=== PATIENT | male | born 1950 | race Caucasian/White ===

== ENCOUNTER → 2016-11-21 | Outpatient (CLI) | payer MEDICARE, BC ==
[2016-11-21 11:19] LABS: EKG EKG PERFORMED
[2016-11-21 11:25] LABS: Basophils # (A) 0.1 k/uL (0-0.2); Basophils % (A) 1 %; CH 32.3; CHCM 32.9; Eosinophils # (A) 0.4 k/uL (0-0.7); Eosinophils % (A) 7 %; HDW 2.24; HGB 15.1 gm/dL (13.0-17.5); Luc # (Auto) 0.23; Luc % (Auto) 4; Lymphocytes # (A) 1.5 k/uL (1.0-4.8); Lymphocytes % (A) 27 %; MCH 32.2 pg (25.0-35.0); MCHC 32.8 g/dL (31.0-37.0); MCV 98.3 fL (80.0-100.0); Mean Platelet Volume 6.5; Monocytes # (A) 0.5 k/uL (0-1.0); Monocytes % (A) 9 %; Neutrophils % (A) 52 %; RBC 4.68 m/uL (4.30-5.90); RDW 12.2 % (11.5-15.5); WBC 5.8 k/uL (3.8-10.6)
[2016-11-21 11:34] LABS: Partial Thromboplastin Time 23.5 sec (22.0-30.0); Prothrombin Time 10.1 sec (9.0-12.0)
[2016-11-21 11:45] LABS: Anion Gap 9 mmol/L; Blood Urea Nitrogen 16 mg/dL (9-20); Carbon Dioxide 30 mmol/L (22-30); Chloride 103 mmol/L (98-107); Glucose 91 mg/dL (74-99); Non-African American GFR(MDRD) >60 (>60 ml/min/1.73 sqM); Potassium 4.6 mmol/L (3.5-5.1); Sodium 142 mmol/L (137-145)
== END | disposition home or self-care (01) ==
LOC: LABPAT 11:07
PROVIDERS: ATTEND Urology
DX: Z01.818 Encounter for other preprocedural examination (principal); N20.0 Calculus of kidney; E78.5 Hyperlipidemia, unspecified; Z79.01 Long term (current) use of anticoagulants; I10 Essential (primary) hypertension
CPT/HCPCS: 80048; 85025; 85610; 85730; 93005

== ENCOUNTER 2016-11-28 08:13 | Day surgery (SDC) | payer MEDICARE, BC ==
[2016-11-25 14:10] VITALS: BMI 31.2
[~2016-11-28 08:13] MED LIST: DEXAMETHASONE SOD PHOSPHATE 10 MG/ML 1 ML VIAL IV ONE; HYDROmorphone 1 MG/ML 1 ML SYRINGE IVP PRN; LACTATED RINGERS 1,000 ML IV ONE; LIDOCAINE 1% 20 ML VIAL (10MG/ML) FOR IV START INTRADERMA PRN; Pre Op ABX Message 1 EACH MISC MISCELLANE ONE
--- NOTE | 2016-11-28 08:13 | XR ---
Abdomen HISTORY: Kidney stones Single frontal view of the abdomen correlated to prior exam 02 November 2016 There is a calculus superimposed over the mid to lower pole of the right kidney measuring approximate ly 5 mm in greatest dimension. Possible calcification over the lower pole of the left kidney measurin g approximately 5 to 6 mm, there may be additional smaller calculi present at the lower pole of the l eft kidney. Lung bases are not included on the exam. No pneumoperitoneum or bowel obstruction is evid ent. There are vascular calcifications within the pelvis. Osteoarthritic changes are present within t he hips. Degenerative disc changes in the visualized spine. IMPRESSION: Nephrolithiasis may be bilateral.
[2016-11-28 09:05] VITALS: TEMP 97.8
[2016-11-28] MEDS ORDERED: PROPOFOL 10 MG/ML 20 ML VIAL IV ONE (09:26)
[2016-11-28] MEDS ORDERED: MIDAZOLAM 2 MG/2 ML VIAL ONE (09:26)
[2016-11-28] MEDS ORDERED: LIDOCAINE 1% INJ 10MG/ML (20 ML MDV) ONE (09:26)
[2016-11-28] MEDS ORDERED: fentaNYL (PF) 50 MCG/ML 2 ML AMP ONE (09:26)
--- NOTE | 2016-11-28 10:05 | P.OP ---
Date of Procedure: 11/28/16 Preoperative Diagnosis: Right Renal Calculus Postoperative Diagnosis: Same Procedure(s) Performed: Right Extracorporal Shockwave Lithotripsy (ESWL) Anesthesia: MAC Surgeon: Jaxon Cummings Estimated Blood Loss (ml): 0 IV fluids (ml): 600 Pathology: none sent Condition: stable Disposition: PACU Indications for Procedure: He is a 66-year-old male with no family history of prostate cancer. His prostate biopsy 04/18/2012 was negative. His PSA has been in a lower range since that time. He reports mild obstructive voiding symptoms, which are more bothersome to him. PRINCESS reveals the prostate to be moderately enlarged but smooth. He will be placed on Tamsulosin 0.4 mg daily. He reports right flank discomfort, and a KUB x-ray shows a 4-5 mm RLP renal calculus. He has elected to undergo ESWL. Operative Findings: Questionable fragmentation Description of Procedure: The patient was taken to the operating room and placed on the Dornier Compact Delta II lithotripter in the supine position. The [calculus was] seen on biplanar fluoroscopy. Once the patient was properly positioned and sedated, lithotripsy was performed. The energy level was gradually increased per protocol, to an energy level of [4]. [After 200 shocks were administered, a 2 minute pause was instituted per protocol. ]A total of [2500] shocks were given at a rate of [80] shocks per minute. Fluoroscopy was utilized at a minimum to ensure proper positioning and determine the treatment status. [The appearance of the calculus appeared to change, suggesting fragmentation had occurred. ] The patient tolerated the procedure well was taken to the recovery room in stable condition. Instructions were given to strain the urine, and the patient will follow-up within one week.
[2016-11-28 10:35] VITALS: BP 130/72; PULSE 73; RESP 18
== END 2016-11-28 11:46 | disposition home or self-care (01) ==
LOC: ORWHC2ENDO 08:13
PROVIDERS: ATTEND Urology
DX: N20.0 Calculus of kidney (principal); N40.1 Benign prostatic hyperplasia with lower urinary tract symptoms; N13.8 Other obstructive and reflux uropathy; N43.40 Spermatocele of epididymis, unspecified; N52.9 Male erectile dysfunction, unspecified; E78.5 Hyperlipidemia, unspecified; I10 Essential (primary) hypertension; Z79.82 Long term (current) use of aspirin; Z79.899 Other long term (current) drug therapy
CPT/HCPCS: 74000; 50590; J2250; J2001; J3010; J2704; 99153

== ENCOUNTER → 2016-12-02 | Outpatient (CLI) | payer MEDICARE, BC ==
--- NOTE | 2016-12-02 11:20 | XR ---
EXAMINATION TYPE: XR KUB DATE OF EXAM ORDERED: 12/02/2016 10:57 AM HISTORY: Status post right-sided lithotripsy. COMPARISON: Previous study dated 11/28/2016. FINDINGS: The patient's right-sided renal calculus is no longer identified. There is some fine calci fication within the right hemipelvis which was not present with certainty on the previous examination and may represent some Steinstrasse. The abdominal gas pattern is normal. There is no evidence of obstruction or free air. There is mild s pondylosis deformans within the spine. There are severe degenerative changes in both hips, greater on the right than the left. IMPRESSION: 1. THE PATIENT'S RIGHT RENAL CALCULUS APPEARS TO HAVE BEEN DISPERSED. THERE MAY BE SOME STEINSTRASSE IN THE DISTAL RIGHT URETER. 2. DEGENERATIVE CHANGES IN THE SPINE. 3. SEVERE DEGENERATIVE CHANGES WITHIN THE HIPS, GREATER ON THE RIGHT THAN THE LEFT. PLEASE CORRELATE FOR FEMOROACETABULAR IMPINGEMENT SYNDROME.
== END | disposition home or self-care (01) ==
LOC: RADXRMAIN 10:37
PROVIDERS: ATTEND Urology
DX: N20.0 Calculus of kidney (principal)
CPT/HCPCS: 74000

== ENCOUNTER → 2017-11-24 | Outpatient (CLI) | payer BC, MEDICARE ==
--- NOTE | 2017-11-24 12:29 | XR ---
EXAMINATION TYPE: XR chest 2V DATE OF EXAM: 11/24/2017 COMPARISON: NONE TECHNIQUE: PA and lateral views submitted. HISTORY: Chest pain FINDINGS: The lungs are clear and there is no pneumothorax, pleural effusion, or focal pneumonia. Arthropathy of the shoulders. Biapical pleural thickening. No overt failure. Hypertrophic and degenerative erwin e of the spine. Hyperinflation suggests COPD. IMPRESSION: 1. No acute process.
--- NOTE | 2017-11-24 12:31 | XR ---
EXAMINATION TYPE: XR cervical spine limited DATE OF EXAM: 11/24/2017 COMPARISON: NONE HISTORY: Neck pain TECHNIQUE: 3 views are submitted. FINDINGS: The odontoid is intact. There are no compression deformities. The prevertebral soft tissue structur es are within normal limits. Hypertrophic and degenerative changes are noted. Retrolisthesis of C4 o n C5 and C5 on C6 with degenerative changes. Multilevel facet arthropathy. Calcifications in the soft tissue of the neck are likely vascular. IMPRESSION: 1. Multilevel degenerative change and facet arthropathy with retrolisthesis of C4 on C5 and C5 on C6 of approximately 2 to 3 mm.
== END | disposition home or self-care (01) ==
LOC: RADXRMAIN 11:55
PROVIDERS: ATTEND Family Medicine
DX: M43.12 Spondylolisthesis, cervical region (principal); M47.22 Other spondylosis with radiculopathy, cervical region; M46.82 Other specified inflammatory spondylopathies, cervical region; R07.9 Chest pain, unspecified
CPT/HCPCS: 71046; 72040

== ENCOUNTER → 2018-11-27 | Outpatient (CLI) | payer MEDICARE, BC | END | disposition home or self-care (01) | LOC: LABWHC1 11:59 | PROVIDERS: ATTEND Urology | DX: R97.20 Elevated prostate specific antigen [PSA] (principal); Z53.9 Procedure and treatment not carried out, unspecified reason ==

== ENCOUNTER → 2020-01-01 | Outpatient (CLI) | payer MEDICARE, BC | END | disposition home or self-care (01) | LOC: LABWHC1 14:33 | PROVIDERS: ATTEND Urology | DX: R97.20 Elevated prostate specific antigen [PSA] (principal) | CPT/HCPCS: 36415; 84153 ==

== ENCOUNTER → 2020-03-26 | Outpatient (CLI) | payer MEDICARE, BC ==
--- NOTE | 2020-03-26 14:08 | XR ---
EXAMINATION TYPE: XR chest 2V DATE OF EXAM: 03/26/2020 COMPARISON: Prior chest x-ray 11/24/2017 HISTORY: Chest pain and dyspnea, shortness breath TECHNIQUE: Frontal and lateral views of the chest are obtained. FINDINGS: There is no focal air space opacity, pleural effusion, or pneumothorax seen. The cardiac silhouette size is within normal limits. The osseous structures are intact. There is thoracic spond ylosis. IMPRESSION: No acute cardiopulmonary process.
== END | disposition home or self-care (01) ==
LOC: RADXRMAIN 09:58
PROVIDERS: ATTEND Family Medicine
DX: R07.9 Chest pain, unspecified (principal); R06.00 Dyspnea, unspecified
CPT/HCPCS: 71046

== ENCOUNTER → 2020-11-25 | Outpatient (CLI) | payer MEDICARE, BC ==
[~2020-11-25] MED LIST changes: -DEXAMETHASONE SOD PHOSPHATE 10 MG/ML 1 ML VIAL IV ONE; -HYDROmorphone 1 MG/ML 1 ML SYRINGE IVP PRN; -LACTATED RINGERS 1,000 ML IV ONE; -LIDOCAINE 1% 20 ML VIAL (10MG/ML) FOR IV START INTRADERMA PRN; -Pre Op ABX Message 1 EACH MISC MISCELLANE ONE; +REGADENOSON 0.4 MG/5 ML SYRINGE IV ONE
--- NOTE | 2020-11-25 11:38 | NM ---
EXAMINATION TYPE: NM stress lexiscan cardiolite DATE OF EXAM: 11/25/2020 COMPARISON: NONE HISTORY: Abnormal EKG TECHNIQUE: After the intravenous administration of 10.7 mCi Tc 99m Sestamibi - Cardiolite resting SP ECT images acquired 53 minutes post injection. The patient received 0.4mg Lexiscan, 24.5 mCi Tc 99m Sestamibi - Stress images obtained [address] injection FINDINGS: Review of stress and rest SPECT images demonstrates reduced uptake on stress images within the inferi or wall of each may be artifactual. Gated analysis shows normal wall motion with an estimated left v entricular ejection fraction of 67 %. IMPRESSION: 1. Reduced uptake at stress images within the inferior wall is felt to be more likely artifactual cor relate with EKG. 2. Ejection fraction 67%
--- NOTE | 2020-11-26 12:03 | EST ---
EXERCISE STRESS AGE: 70 SEX: Male HT: 73" WT: 240 PROTOCOL: Lexiscan Cardiolite STAGE: DURATION OF EXERCISE: HEART RATE REST: 75 BLOOD PRESSURE REST: 144/68 MAXIMUM HEART RATE ACHIEVED: 88 MAXIMUM BLOOD PRESSURE: 144/86 85% MPHR: 127 100% MPHR: 149 METS: INDICATIONS: Chest pain. CLINICAL INFORMATION: STRESS DATA: Heart rate 75 pressure is 144/68 mmHg. Baseline EKG showed sinus mechanism. 0.4 mg of Lexiscan given over 15 seconds per protocol. Max heart rate was 88 beats per minute. Maximum pressure was 144/86 mmHg. Clinically, the patient did not have any symptoms and the EKG did not show any significant ST or T-wave abnormalities concerning for ischemia. CONCLUSION: 1. Nondiagnostic electrocardiogram stress testing in response to Lexiscan. 2. Please follow up on the Cardiolite portion on separate report from Radiology Department. MMODL / IJN: [id number] /
== END | disposition home or self-care (01) ==
LOC: RADNMMAIN 08:15
PROVIDERS: ATTEND Family Medicine
DX: R94.31 Abnormal electrocardiogram [ECG] [EKG] (principal); R94.8 Abnormal results of function studies of other organs and systems
CPT/HCPCS: 93017; 78452; A9500; J2785

== ENCOUNTER → 2020-12-07 | Day surgery (SDC) | payer MEDICARE, BC ==
[2020-12-03 11:22] VITALS: BMI 32.5
[~2020-12-07] MED LIST changes: +ALPRAZolam 0.25 MG TAB PO PRN; +ALPRAZolam 0.5 MG TAB PO PRN; +ASPIRIN 325 MG TAB PO ONE; +ATORVASTATIN 80 MG TAB PO ONE; +HEPARIN SODIUM 1,000 UN/ML (10ML VL) ONE; +IOPAMIDOL-370 125ML BTL INJ ONE; +LIDOCAINE 1% INJ 10MG/ML (20 ML MDV) ONE; +LIDOCAINE 1% INJ 10MG/ML (20 ML MDV) SQ ONE; +MIDAZOLAM 2 MG/2 ML VIAL IV ONE; +NITROGLYCERIN SL TABS 0.4 MG TAB SUBLINGUAL PRN; -REGADENOSON 0.4 MG/5 ML SYRINGE IV ONE; +RX INFO: IV CONTRAST WAS GIVEN 1 EACH MISC MISCELLANE PRN; +SODIUM CHLORIDE 0.9% 1,000 ML IV SCH; +SODIUM CHLORIDE 0.9% 1,000 ML in EMPTY BAG 1 BAG IV ONE; +VERAPAMIL 2.5 MG/ML 2 ML AMP ONE; +fentaNYL (PF) 50 MCG/ML 2 ML AMP IV ONE; +fentaNYL (PF) 50 MCG/ML 2 ML AMP ONE
[2020-12-07 08:48] VITALS: RESP 18; TEMP 98.2
[2020-12-07 08:56] LABS: Basophils # (A) 0.1 k/uL (0-0.2); Basophils % (A) 1 %; Eosinophils # (A) 0.4 k/uL (0-0.7); Eosinophils % (A) 5 %; HCT 44.5 % (39.0-53.0); HGB 15.2 gm/dL (13.0-17.5); Lymphocytes # (A) 2.4 k/uL (1.0-4.8); Lymphocytes % (A) 28 %; MCH 32.7 pg (25.0-35.0); MCHC 34.2 g/dL (31.0-37.0); MCV 95.7 fL (80.0-100.0); Mean Platelet Volume 6.9; Monocytes # (A) 0.7 k/uL (0-1.0); Monocytes % (A) 9 %; Neutrophils # (A) 4.9 k/uL (1.3-7.7); Neutrophils % (A) 56 %; Platelet Count 275 k/uL (150-450); RBC 4.66 m/uL (4.30-5.90); RDW 11.7 % (11.5-15.5); WBC 8.7 k/uL (3.8-10.6)
--- NOTE | 2020-12-07 10:22 | CC ---
CARDIAC CATHETERIZATION REPORT DATE OF SERVICE: 12/07/2020 PERFORMING PHYSICIAN: Marcial Tan MD. PROCEDURE PERFORMED: 1. Selective right and left coronary angiogram. 2. Left heart catheterization. INDICATION: This is a very pleasant 70-year-old gentleman with hypertension and dyslipidemia who was seen in the office recently with chest discomfort and underwent myocardial perfusion imaging stress test and that came into be abnormal. Because of that, a heart catheterization was advised. APPROACH: Right radial artery. COMPLICATION: None. LEVEL OF SEDATION: Moderate with sedation length of 18 minute. PROCEDURE DESCRIPTION: After obtaining informed consent, the patient was brought to cardiac lab support service tech. The right radial artery was cannulated using micropuncture technique and a micropuncture wire passed easily. Then I placed a 5-Chinese sheath in the right radial artery. 2 mg of verapamil IA and 10,000 units of heparin given. After that I did selective right and left coronary angiogram with JR4 and JL3.5 catheters. Left heart catheterization was performed using the JR4 catheter which crossed the aortic valve then I did pullback across the valve. The procedure was completed without any complication. SELECTIVE CORONARY ANGIOGRAM: 1. The RCA is a moderate caliber vessel. It is a codominant vessel. The RCA has an ostial lesion appeared to be in the range of 70%. There was definitely dampening in the waveform upon engaging the right coronary artery. 2. The left main. The left main is diseased in the mid shaft with a lesion that appeared to be in the range of 50%. The left main bifurcates into LCX and LAD. 3. The LCX is a large caliber vessel. It is a codominant vessel. The proximal left circumflex has mild disease only. It gives rise into a large OM branch which has a proximal and mid lesion appeared to be in the range of 80%. The circumflex appeared to have mild disease only and the circumflex distally appeared to be angiographically normal. 4. The LAD: The ostial/proximal LAD has a lesion appeared to be in the range of 80% to 90%. The LAD in the mid and distal portion appeared to have mild disease only. HEMODYNAMICS: The LVEDP was about 12 mmHg without significant gradient across aortic valve. CONCLUSION: 1. Severe triple-vessel coronary artery disease. 2. Severe left main coronary artery disease involving the mid shaft. 3. Normal LVEDP. POSTPROCEDURE MANAGEMENT: Given the above anatomy, I advised the patient to undergo coronary artery bypass grafting and to be evaluated by a surgeon. MMBANDAR / IJN: [id number] /
[2020-12-07 11:40] LABS: Prothrombin Time 10.9 sec (9.0-12.0)
[2020-12-07 11:43] LABS: ALT 32 U/L (4-49); AST 27 U/L (17-59); African American GFR (CKD) >90 (>60 ml/min/1.73 sqM); Alkaline Phosphatase 57 U/L (38-126); Anion Gap 12 mmol/L; Blood Urea Nitrogen 22 mg/dL (9-20); Carbon Dioxide 23 mmol/L (22-30); Chloride 104 mmol/L (98-107); Glucose 145 mg/dL (74-99); Non-African American GFR(CKD) 84 (>60 ml/min/1.73 sqM); Sodium 139 mmol/L (137-145); Total Bilirubin 0.4 mg/dL (0.2-1.3)
[2020-12-07 11:49] LABS: Potassium 3.9 mmol/L (3.5-5.1)
[2020-12-07 11:50] LABS: Partial Thromboplastin Time 110.1 sec (22.0-30.0)
--- NOTE | 2020-12-07 11:59 | P.GSCN ---
History of Present Illness Consult date: 12/07/20 Reason for Consult: Triple vessel coronary artery disease with left main disease Requesting physician: Marcial Tan History of present illness: This is a 70-year-old gentleman who follows on an outpatient basis with Dr. Conrad Rivera for primary care. He has a previous medical history of hypertension, hyperlipidemia, and family history of premature coronary artery disease with father from myocardial infarction at 52 years old. He began experiencing chest pressure associated with shortness of breath with activity but not at rest. He experienced no other aggravating or alleviating symptoms. He called his primary care physician for advice, he was recommended to see Dr. Tan, and was initiated on aspirin and statin therapy. He did have an EKG with new left bundle branch block as compared to previous EKG from 4 years prior. He underwent stress testing which reported reduced uptake within the inferior wall, possibly artifact versus ischemia. Due to his symptoms, EKG changes, and stress test Dr. Tan recommended elective heart catheterization which was completed today and which demonstrated left main stenosis 50%, proximal LAD stenosis 80- 90%, large OM branch of the circumflex with stenosis 80%, and ostial RCA stenosis 70%. Due to these findings consultation was placed to Dr. Hu from cardiothoracic surgery for surgical revascularization recommendations. Review of Systems - Cardiovascular Reports as per HPI, Reports chest pain, Reports decreased exercise tolerance, Reports dyspnea on exertion Past Medical History Past Medical History: Coronary Artery Disease (CAD), Chest Pain / Angina, H yperlipidemia, Hypertension, Prostate Disorder Additional Past Medical History / Comment(s): Enlarged prostate; kidney stones History of Any Multi-Drug Resistant Organisms: None Reported Additional Past Surgical History / Comment(s): COLONOSCOPY; right extracorporeal shockwave lithotripsy Past Anesthesia/Blood Transfusion Reactions: No Reported Reaction Past Psychological History: No Psychological Hx Reported Smoking Status: Never smoker Past Alcohol Use History: Rare Past Drug Use History: None Reported - Past Family History Mother Family Medical History: Congestive Heart Failure (CHF), Coronary Artery Disease (CAD), Hypertension Father Family Medical History: Cancer, Coronary Artery Disease (CAD), Myocardial Infarction (CA) Additional Family Medical History / Comment(s): at 52 years old for myocardial infarction; Kidney cancer found on autopsy Sister(s) Family Medical History: Cancer Additional Family Medical History / Comment(s): Breast cancer Medications and Allergies Home Medications Medication Instructions Recorded Confirmed Type Aspirin [Adult Low Dose Aspirin EC] 81 mg PO DAILY 11/25/16 12/07/20 History Fluticasone Nasal [place] [Flonase 1 spray EA NOSTRIL DAILY PRN 11/25/16 12/07/20 History Nasal [place]] Losartan [Cozaar] 25 mg PO DAILY 11/25/16 12/07/20 History Multivitamins, Thera [Multivitamin] 1 tab PO DAILY 11/25/16 12/07/20 History Tamsulosin [Flomax] 0.4 mg PO DAILY 11/25/16 12/07/20 History Atorvastatin [Lipitor] 80 mg PO HS 12/03/20 12/07/20 History Carvedilol [Coreg] 6.25 mg PO BID 12/03/20 12/07/20 History Allergies Allergy/AdvReac Type Severity Reaction Status Date / Time No Known Allergies Allergy Verified 12/07/20 08:32 Surgical - Exam Vital Signs Temp Pulse Resp BP Pulse Ox 98.2 F 78 18 145/70 98 12/07/20 08:33 12/07/20 08:33 12/07/20 08:33 12/07/20 08:33 12/07/20 08:33 - General well developed, well nourished, no distress, no pain - Eyes normal ocular movement - ENT no hearing loss - Neck no masses, no bruits, trachea midline - Respiratory Lungs sounds clear bilaterally. Respirations even, nonlabored. Currently on room air with oxygen saturation 98%. No chest wall deformities. No clubbing or cyanosis present. - Cardiovascular S1, S2 present. Regular rate and rhythm, sinus rhythm on telemetry. Palpable peripheral pulses bilaterally. No edema present. No calf pain or tenderness noted. Right radial heart catheterization site without redness or drainage, T band in place - Abdomen Abdomen: soft, non tender, bowel sounds - Genitourinary Deferred - Rectum Deferred - Integumentary no rash, no growths - Neurologic normal coordination, normal sensation - Musculoskeletal normal posture - Psychiatric oriented to time, oriented to person, oriented to place, speech is normal, memory intact Results - Labs 12/07/20 08:40 12/07/20 10:45 Diabetes panel 12/07/20 Range/Units 08:40 Potassium 4.1 (3.5-5.1) mmol/L Pituitary panel 12/07/20 Range/Units 08:40 Potassium 4.1 (3.5-5.1) mmol/L Adrenal panel 12/07/20 Range/Units 08:40 Potassium 4.1 (3.5-5.1) mmol/L - Imaging Chest x-ray: report reviewed, image reviewed EKG: image reviewed Additional studies: Heart catheterization films reviewed Assessment and Plan Assessment: 1. Coronary artery disease with left main disease 2. Hypertension 3. Hyperlipidemia 4. Enlarged prostate 5. Never smoker 6. Family history of premature coronary artery disease Plan: The patient was seen and examined at the bedside. His chart/diagnostics were re viewed. Heart catheterization films will be reviewed with Dr. Hu. The usual perioperative course of coronary artery bypass surgery was discussed in detail with the patient and his , risks and benefits were reviewed, all questions were answered. The patient does consent to surgery. Preoperative testing was initiated. Will calculate STS risk score once all testing has been completed and discuss with the patient. Continue aspirin, statin, beta marcus therapy. More recommendations to follow regarding timing of surgery. Thank you Dr. Tan for this consult. Time with Patient: Greater than 30
[2020-12-07 13:01] LABS: Cholesterol 95 mg/dL (<200); HDL Cholesterol 40 mg/dL (40-60); LDL Cholesterol,Calculated 47 mg/dL (0-99); Triglycerides 39 mg/dL (<150)
--- NOTE | 2020-12-07 13:08 | US ---
EXAMINATION TYPE: US carotid duplex BILAT DATE OF EXAM: 12/07/2020 COMPARISON: NONE CLINICAL HISTORY: Pre-Op Cardiac Surgery. CAD EXAM MEASUREMENTS: RIGHT: Peak Systolic Velocity (PSV) cm/sec ----- Right CCA: 54.9 ----- Right ICA: 301.6 ----- Right ECA: 113.9 ICA/CCA ratio: 5.5 RIGHT: End Diastole cm/sec ----- Right CCA: 8.6 ----- Right ICA: 59.2 ----- Right ECA: 0.0 LEFT: Peak Systolic Velocity (PSV) cm/sec ----- Left CCA: 84.0 ----- Left ICA: 215.5 ----- Left ECA: 92.6 ICA/CCA ratio: 2.6 LEFT: End Diastole cm/sec ----- Left CCA: 11.3 ----- Left ICA: 31.5 ----- Left ECA: 12.4 VERTEBRALS (direction of flow): Right Vertebral: Antegrade Left Vertebral: Antegrade Rhythm: Normal Moderate to severe Right ICA stenosis is noted proximally with abnormally elevated PSV, elevated ICA/ CCA ratio, and mixed plaque present. Moderate left ICA stenosis is noted proximally. Grayscale, colo r Doppler, spectral Doppler imaging performed the carotid arteries. Waveform analysis shows spectral broadening, loss of systolic window within the proximal internal carotid artery on the right greater than left. IMPRESSION: Hemodynamic significant stenosis corresponding to approximately 70% diameter reduction or greater in the proximal right internal carotid artery, 50-69% diameter reduction of the proximal i nternal carotid artery in the left, consider CTA, MRA Criteria for Assigning % of Stenosis / Diameter reduction (Estimation based on the indirect measurements of the internal carotid artery velocities (ICA PSV). 1. Normal (no stenosis)=ICA PSV < 125 cm/s: ratio < 2.0: ICA EDV<40 cm/s. 2. Less than 50% stenosis=ICA PSV < 125 cm/s: ratio < 2.0: ICA EDV<40 cm/s. 3. 50 to 69% stenosis=ICA PSV of 125 to 230 cm/s: ration 2.0 ? 4.0: ICA EDV 40-100 cm/s. 4. Greater than 70% stenosis to near occlusion= ICA PSV > 230 cm/s: ratio > 4.0: ICA EDV > 100 cm/s. 5. Near occlusion= ICA PSV velocities may be low or undetectable: variable ratio and ICA EDV. 6. Total occlusion=unable to detect flow.
[2020-12-07 14:39] VITALS: BP 143/64; PULSE 66
[2020-12-07 14:46] LABS: Appearance,Urine Clear (Clear); Bilirubin,Urine Negative (Negative); Blood,Urine Negative (Negative); Color,Urine Yellow; Glucose,Urine (UA) Negative (Negative); Ketones,Urine Negative (Negative); Leukocyte Esterase,Urine Negative (Negative); Nitrite,Urine Negative (Negative); Protein,Urine Negative (Negative); Specific Gravity,Urine 1.032 (1.001-1.035); Urobilinogen,Urine <2.0 mg/dL (<2.0)
--- NOTE | 2020-12-07 16:19 | XR ---
EXAMINATION TYPE: XR chest 2V DATE OF EXAM: 12/07/2020 COMPARISON: Chest x-ray dated 03/26/2020 HISTORY: Preop cardiac surgery TECHNIQUE: Frontal and lateral views of the chest are obtained. FINDINGS: There is no focal air space opacity, pleural effusion, or pneumothorax seen. The cardiac silhouette size is within normal limits. There are overlying leads. The osseous structures are intac t. IMPRESSION: No acute cardiopulmonary process.
[2020-12-07 18:00] LABS: Hemoglobin A1C 5.7 % (4.0-6.0)
[2020-12-07 19:15] LABS: Hepatitis A Antibody IgM Non-Reactive (Non-Reactive); Hepatitis B Core IgM Non-Reactive (Non-Reactive); Hepatitis B Surface Antigen Non-Reactive (Non-Reactive); Hepatitis C IgG Antibody Non-Reactive (Non-Reactive)
--- NOTE | 2020-12-08 15:12 | P.PN ---
Progress Note - Text Progress Note Date: 12/07/20 A 5 m walk test was completed with the patient. Time 1: 2.33 seconds, time 2: 2.73 seconds, time 3: 2.62 seconds.
--- NOTE | 2020-12-09 11:34 | P.ARTDOP ---
Arterial Doppler LOWER EXTREMITY ARTERIAL DOPPLER: DATE OF SERVICE: 12/07/2020 Reason for study: Preop CABG. Doppler waveforms: Multiphasic bilaterally throughout. Normal toe waveforms. Pulse volume recording: []. Pressure gradients: None. Ankle-brachial indices: Greater than 1 bilaterally. Toe brachial indices: 0.99 on the right, 0.74 on the left Impression: Normal study.
--- NOTE | 2020-12-09 11:38 | P.VSCSTY ---
Greater Saphenous Vein Mapping This is bilateral lower extremity greater saphenous vein mapping. Date of service: 12/07/2020 Vein quality and ultrasound appearance: We see no intraluminal thrombus. There is some intimal thickening in the mid right thigh. There is an nodes seen in the right groin.. Vein size groin right : 7.6 x 7.6 groin left: 4.7 x 3.2 High thigh right: 3.7 x 3.3 high thigh left: 4.6 x 4.1 Mid thigh right: 2.6 x 2.6 mid thigh left: 4.2 x 3.0 Above-knee right: 2.8 x 3.0 above- knee left: 4.1 x 3.9 Below knee right: 3.7 x 2.2 below-knee left: 2.0 x 2.4 Mid calf right: 2.6 x 2.3 mid calf left: To 0.7 x 2.8 Ankle right: 3.3 x 3.4 ankle left: 2.3 x 2.6 Impression: Usable bilateral greater saphenous vein. Wall thickening in the right groin probably related to some form of chronic inflammatory process, but I cannot rule out postphlebitic area. Clinical correlation recommended..
== END ==
LOC: CATHCVL 08:22
PROVIDERS: ATTEND Internal Medicine Interventional Cardiology
DX: I25.110 Atherosclerotic heart disease of native coronary artery with unstable angina pectoris (principal); I65.23 Occlusion and stenosis of bilateral carotid arteries; I10 Essential (primary) hypertension; E78.00 Pure hypercholesterolemia, unspecified; E78.5 Hyperlipidemia, unspecified; N40.0 Benign prostatic hyperplasia without lower urinary tract symptoms; Z87.442 Personal history of urinary calculi; Z79.02 Long term (current) use of antithrombotics/antiplatelets; Z79.82 Long term (current) use of aspirin; Z79.899 Other long term (current) drug therapy; Z82.49 Family history of ischemic heart disease and other diseases of the circulatory system; Z80.3 Family history of malignant neoplasm of breast
CPT/HCPCS: 94150; 93458; 80061; 80053; 80074; 84443; 83735; 84132; 85025; 85610; 85730; 81003; 87070; 83036; 71046; 93970; 93922; 93880; C8929; C1769; C1894; U0003; U0005; J2250; J2001; J3010; J1644; Q9950; Q9967; 86850; 86900; 86901; 93306

== ENCOUNTER → 2020-12-09 | Outpatient (CLI) | payer MEDICARE, BC ==
[2020-12-09 12:55] LABS: African American GFR (CKD) >90 (>60 ml/min/1.73 sqM); Blood Urea Nitrogen 21 mg/dL (9-20); Non-African American GFR(CKD) 85 (>60 ml/min/1.73 sqM)
--- NOTE | 2020-12-09 13:58 | CT ---
EXAMINATION TYPE: CT angio head neck DATE OF EXAM: 12/09/2020 HISTORY: Abnormal US per patient. Scheduled for CABG COMPARISON: Carotid ultrasound [address] DLP: 483.7 mGycm. Automated Exposure Control for Dose Reduction was Utilized. TECHNIQUE: CTA scan of the head and neck are performed with IV Contrast, patient injected with 65 mL of Isovue 370, axial images are obtained, coronal and sagittal reformatted images are reviewed. Thre e-D reconstructed images are created on an independent workstation and reviewed. FINDINGS: Carotid/Vascular Structures: Normal 3 vessel origin from the aortic arch. Mild to moderate peripheral noncalcified plaque in the descending aorta just past the great vessels. Right common carotid artery shows normal origin from right brachiocephalic artery. No significant plaque or stenosis in the comm on carotid arteries bilaterally. Moderate to severe mixed predominately noncalcified plaque in the ca rotid bulbs extends into proximal internal carotid arteries bilaterally causing significant stenosis. Luminal diameter narrowed to 2.2 mm proximal right internal carotid artery image 676 of the raw data . There is reconstitution to 6.0 mm distal to this.Lumen diameter narrowed to 1.7 mm on the left with more elongated flow anteriorly. There is poststenotic dilatation up to 7.3 mm distal to this There a re patent external carotid arteries bilaterally without significant stenosis. Remainder of the international account manager al carotid arteries shows no significant stenosis. Codominant vertebrobasilar system. Vertebral arteries are patent to the basilar junction. No signific ant focal stenosis or aneurysmal change of the posterior circulation. Hypoplastic bilateral posterior communicating arteries are seen. Hypoplastic anterior communicating artery. No significant focal huyen nosis or aneurysmal change in the anterior circulation. Other: Mild to moderate spurring and disc space narrowing C4-C5 and C5-C6 levels. Levoconvex scoliosi s centered in the upper thoracic spine. IMPRESSION: Confirmation of hemodynamically significant stenosis in both internal carotid arteries me asuring 65-70 % on the right and near 75% on the left.
== END | disposition home or self-care (01) ==
LOC: RADCTMAIN 11:57
PROVIDERS: ATTEND Surgery
DX: I65.23 Occlusion and stenosis of bilateral carotid arteries (principal)
CPT/HCPCS: 82565; 84520; 70496; 70498; 36415; Q9967

== ENCOUNTER 2020-12-10 05:52 | Inpatient (IN) | payer MEDICARE, BC ==
[~2020-12-10 05:52] MED LIST changes: +ALBUMIN HUMAN 25% 50 ML IV ONE; +ALBUMIN HUMAN 5% 500 ML IVPB ONE; -ALPRAZolam 0.25 MG TAB PO PRN; -ALPRAZolam 0.5 MG TAB PO PRN; +ATORVASTATIN 10 MG TAB PO ONE; -ATORVASTATIN 80 MG TAB PO ONE; +CALCIUM CHLORIDE 100 MG/ML 10 ML SYRINGE IV ONE; +CARDIOPLEGIC SOLN (K+ 16 MEQ/L 1,000 ML with SODIUM BICARB (1 MEQ/ML) 20 ML, LIDOCAINE ... PERFUSION ONE; +CHLORHEXIDINE GLUCONATE 15 ML CUP MUCOUS MEM ONE; +CLEVIDIPINE BUTYRATE 25 MG in EMPTY BAG 1 BAG IV ONE; +DILTIAZEM 125 MG in SODIUM CHLORIDE 0.9% 100 ML IV ONE; +HEPARIN SODIUM 1,000 UN/ML (10ML VL) IV ONE; -HEPARIN SODIUM 1,000 UN/ML (10ML VL) ONE; +HEPARIN SODIUM,PORCINE 5,000 UNIT in SODIUM CHLORIDE 0.9% 500 ML 500 ML IV ONE; +INSULIN REGULAR 100 UNIT in SODIUM CHLORIDE 0.9% 100 ML IV ONE; -IOPAMIDOL-370 125ML BTL INJ ONE; +LACTATED RINGERS 1,000 ML IV ONE; -LIDOCAINE 1% INJ 10MG/ML (20 ML MDV) ONE; -LIDOCAINE 1% INJ 10MG/ML (20 ML MDV) SQ ONE; +MAGNESIUM SULFATE MG 500 MG/ML IV ONE; +MANNITOL 25% 12.5 GM/50 ML VIAL IV ONE; +METOPROLOL TARTRATE 12.5 MG TAB PO ONE; -MIDAZOLAM 2 MG/2 ML VIAL IV ONE; +NITROGLYCERIN SL TABS 0.4 MG TAB SUBLINGUAL ONE; -NITROGLYCERIN SL TABS 0.4 MG TAB SUBLINGUAL PRN; +NITROGLYCERIN-D5W PMX 25 MG/250 ML BTL IV ONE; +NITROGLYCERIN-D5W PMX 50 MG in DEXTROSE/WATER 1 250ML.BAG IV ONE; +NOREPINEPHRINE 4 MG in SODIUM CHLORIDE 0.9% 250 ML IV ONE; +PAPAVERINE 360 MG in SODIUM CHLORIDE 0.9% 90 ML IV ONE; +PHENYLEPHRINE 10 MG/ML VIAL IV ONE; +PHENYLEPHRINE 40 MG in SODIUM CHLORIDE 0.9% 250 ML IV ONE; +PROTAMINE SULFATE 10 MG/ML 25 ML VIAL IV ONE; +PROTAMINE SULFATE 250 MG in EMPTY BAG 1 BAG IV ONE; -RX INFO: IV CONTRAST WAS GIVEN 1 EACH MISC MISCELLANE PRN; +SODIUM BICARB 8.4% 50 ML SYR (1 MEQ/ML) IV ONE; +SODIUM CHLORIDE 0.9% 1,000 ML IV ONE; -SODIUM CHLORIDE 0.9% 1,000 ML IV SCH; -SODIUM CHLORIDE 0.9% 1,000 ML in EMPTY BAG 1 BAG IV ONE; +TRANEXAMIC ACID 2,000 MG in SODIUM CHLORIDE 0.9% 80 ML IV ONE; -VERAPAMIL 2.5 MG/ML 2 ML AMP ONE; +ceFAZolin 1,000 MG in SODIUM CHLORIDE 0.9% IRRIGATIO 1,000 ML IRRIGATION ONE; -fentaNYL (PF) 50 MCG/ML 2 ML AMP IV ONE; -fentaNYL (PF) 50 MCG/ML 2 ML AMP ONE; +propofoL 1,000 MG/100 ML VIAL IV ONE
[2020-12-10] MEDS ORDERED: ELECTROLYTE-R (PH 7.4) 1,000 ML IV.SOLN IV ONE (07:27)
[2020-12-10] MEDS ORDERED: PROPOFOL 10 MG/ML 20 ML VIAL IV ONE (07:27)
[2020-12-10] MEDS ORDERED: ceFAZolin 1,000 MG VIAL ONE (07:27)
[2020-12-10] MEDS ORDERED: SODIUM CHLORIDE 0.9% IRRIG 1,000 ML BTL IRRIGATION ONE (07:27)
[2020-12-10] MEDS ORDERED: INSULIN REGULAR 100 UNIT/ML VIAL ONE (07:27)
[2020-12-10] MEDS ORDERED: LIDOCAINE 2% SYG (PF) 100 MG/5 ML ONE (07:27)
[2020-12-10] MEDS ORDERED: HEPARIN SODIUM,PORCINE 10,000 UNIT/ML 1 ML VIAL ONE (07:27)
[2020-12-10] MEDS ORDERED: TRANEXAMIC ACID 1,000 MG/10 ML VIAL ONE (07:27)
[2020-12-10] MEDS ORDERED: NITROGLYCERIN-D5W PMX 50 MG/250 ML BOTTLE IV ONE (07:27)
[2020-12-10] MEDS ORDERED: MAGNESIUM SULFATE 4 MEQ/ML 10ML VIAL ONE (07:27)
[2020-12-10] MEDS ORDERED: SODIUM CHLORIDE 0.9% 250 ML BAG ONE (07:27)
[2020-12-10] MEDS ORDERED: VECURONIUM 10 MG VIAL IV ONE (07:27)
[2020-12-10] MEDS ORDERED: PROTAMINE SULFATE 10 MG/ML 25 ML VIAL IV ONE (07:27)
[2020-12-10] MEDS ORDERED: MIDAZOLAM 2 MG/2 ML VIAL ONE (07:27)
[2020-12-10] MEDS ORDERED: SODIUM CHLORIDE 0.9% 100 ML BAG ONE (07:27)
[2020-12-10] MEDS ORDERED: fentaNYL (PF) 50 MCG/ML 2 ML AMP ONE (07:27)
[2020-12-10] MEDS ORDERED: fentaNYL (PF) 50 MCG/ML 50 ML VIAL ONE (07:27)
[2020-12-10] MEDS ORDERED: DEXTROSE 5% IN WATER 1,000 ML with POTASSIUM CHLORIDE 25 MEQ, SODIUM CHLORIDE 4MEQ/ML V... IRRIGATION ONE ×6 (08:00)
[2020-12-10] MEDS ORDERED: DEXTROSE 5% IN WATER 1,000 ML with POTASSIUM CHLORIDE 110 MEQ, MAGNESIUM SULFATE 16 MEQ... IV ONE ×5 (08:00)
[2020-12-10 08:33] LABS: ABG Glucose Whole Blood 93 mg/dL (75-99); ABG HCO3 25 mmol/L (21-25); ABG Hematocrit 40 % (34.0-46.0); ABG Ionized Calcium 4.5 mg/dL (4.5-5.3); ABG Lactic Acid Whole Blood 1.1 mmol/L (0.5-1.6); ABG PCO2 40 mmHg (35-45); ABG PH 7.41 (7.35-7.45); ABG Sodium Whole Blood 141 mmol/L (135-146); ABG TCO2 26 mmol/L (19-24)
[2020-12-10 08:34] LABS: ABG Base Excess -0.1 mmol/L; ABG Glucose Whole Blood 92 mg/dL (75-99); ABG HCO3 25 mmol/L (21-25); ABG Hematocrit 40 % (34.0-46.0); ABG Ionized Calcium 4.5 mg/dL (4.5-5.3); ABG Lactic Acid Whole Blood 1.1 mmol/L (0.5-1.6); ABG PCO2 39 mmHg (35-45); ABG Sodium Whole Blood 141 mmol/L (135-146); ABG TCO2 26 mmol/L (19-24)
[2020-12-10 08:35] LABS: ABG PO2 >420 mmHg (83-108)
[2020-12-10 08:35] LABS: ABG PO2 >420 mmHg (83-108)
[2020-12-10 09:51] LABS: ABG Base Excess -1.8 mmol/L; ABG Glucose Whole Blood 112 mg/dL (75-99); ABG HCO3 25 mmol/L (21-25); ABG Hematocrit 39 % (34.0-46.0); ABG Ionized Calcium 4.5 mg/dL (4.5-5.3); ABG Lactic Acid Whole Blood 0.7 mmol/L (0.5-1.6); ABG Oxygen Saturation 99.7 % (94-97); ABG PCO2 51 mmHg (35-45); ABG PO2 243 mmHg (83-108); ABG Potassium Whole Blood 4.3 mmol/L (3.4-4.5); ABG Sodium Whole Blood 141 mmol/L (135-146); ABG TCO2 27 mmol/L (19-24)
[2020-12-10 10:58] LABS: ABG Base Excess -1.2 mmol/L; ABG Glucose Whole Blood 112 mg/dL (75-99); ABG HCO3 24 mmol/L (21-25); ABG Hematocrit 36 % (34.0-46.0); ABG Ionized Calcium 4.4 mg/dL (4.5-5.3); ABG Lactic Acid Whole Blood 0.8 mmol/L (0.5-1.6); ABG PCO2 41 mmHg (35-45); ABG PH 7.38 (7.35-7.45); ABG PO2 304 mmHg (83-108); ABG Potassium Whole Blood 4.3 mmol/L (3.4-4.5); ABG Sodium Whole Blood 140 mmol/L (135-146); ABG TCO2 25 mmol/L (19-24)
[2020-12-10 11:38] LABS: ABG Base Excess -1.6 mmol/L; ABG Glucose Whole Blood 196 mg/dL (75-99); ABG HCO3 23 mmol/L (21-25); ABG Hematocrit 27 % (34.0-46.0); ABG Ionized Calcium 3.9 mg/dL (4.5-5.3); ABG PCO2 40 mmHg (35-45); ABG PH 7.38 (7.35-7.45); ABG PO2 411 mmHg (83-108); ABG Potassium Whole Blood 5.6 mmol/L (3.4-4.5); ABG Sodium Whole Blood 134 mmol/L (135-146); ABG TCO2 25 mmol/L (19-24)
[2020-12-10 12:06] LABS: ABG Base Excess -2.7 mmol/L; ABG Glucose Whole Blood 145 mg/dL (75-99); ABG HCO3 23 mmol/L (21-25); ABG Hematocrit 26 % (34.0-46.0); ABG Lactic Acid Whole Blood 1.4 mmol/L (0.5-1.6); ABG PCO2 45 mmHg (35-45); ABG PH 7.33 (7.35-7.45); ABG PO2 362 mmHg (83-108); ABG Potassium Whole Blood 4.6 mmol/L (3.4-4.5); ABG Sodium Whole Blood 137 mmol/L (135-146); ABG TCO2 25 mmol/L (19-24)
[2020-12-10 12:39] LABS: ABG Base Excess -0.6 mmol/L; ABG Glucose Whole Blood 158 mg/dL (75-99); ABG HCO3 25 mmol/L (21-25); ABG Hematocrit 25 % (34.0-46.0); ABG Lactic Acid Whole Blood 1.9 mmol/L (0.5-1.6); ABG PCO2 47 mmHg (35-45); ABG PH 7.34 (7.35-7.45); ABG PO2 363 mmHg (83-108); ABG Potassium Whole Blood 4.4 mmol/L (3.4-4.5); ABG Sodium Whole Blood 139 mmol/L (135-146); ABG TCO2 27 mmol/L (19-24)
[2020-12-10] MEDS ORDERED: FLUTICASONE 50MCG/SPRAY NASAL 16GM EA NOSTRIL PRN (14:17)
[2020-12-10 15:28] LABS: Glucose,Whole Blood 96 mg/dL (75-99)
[2020-12-10] MEDS ORDERED: AMIODARONE 360 MG in DEXTROSE 5% IN WATER 200 ML IV PRN ×2 (15:29)
[2020-12-10] MEDS ORDERED: IPRATROPIUM-ALBUTEROL 3 ML NEB INHALATION PRN (15:29)
[2020-12-10] MEDS ORDERED: NITROGLYCERIN-D5W PMX 50 MG in DEXTROSE/WATER 1 250ML.BAG IV SCH (15:29)
[2020-12-10] MEDS ORDERED: Magnesium Replacement Protocol 1 EACH MISC MISCELLANE PRN (15:29)
[2020-12-10] MEDS ORDERED: Phosphorus Replacement Protoco 1 EACH MISC MISCELLANE PRN (15:29)
[2020-12-10] MEDS ORDERED: hydrALAZINE HCL 20 MG/ML 1 ML VIAL IVP PRN (15:29)
[2020-12-10] MEDS ORDERED: DEXMEDETOMIDINE/0.9% NACL(PMX) 400 MCG in EMPTY BAG 1 BAG IV SCH (15:29)
[2020-12-10] MEDS ORDERED: METOCLOPRAMIDE 5 MG/ML 2 ML VIAL IVP PRN (15:29)
[2020-12-10] MEDS ORDERED: Potassium Replacement Protocol 1 EACH MISC MISCELLANE PRN (15:29)
[2020-12-10] MEDS ORDERED: AMIODARONE 450 MG in DEXTROSE 5% IN WATER 250 ML IV PRN ×2 (15:29)
[2020-12-10] MEDS ORDERED: CALCIUM GLUCONATE 2 GM in SODIUM CHLORIDE 0.9% 100 ML IVPB PRN (15:29)
[2020-12-10 15:43] LABS: Basophils % (A) 0 %; Eosinophils # (A) 0.1 k/uL (0-0.7); Eosinophils % (A) 1 %; HCT 31.5 % (39.0-53.0); Lymphocytes # (A) 1.5 k/uL (1.0-4.8); Lymphocytes % (A) 10 %; MCH 32.3 pg (25.0-35.0); MCHC 33.6 g/dL (31.0-37.0); MCV 96.4 fL (80.0-100.0); Mean Platelet Volume 7.7; Monocytes % (A) 7 %; Neutrophils % (A) 82 %; Platelet Count 141 k/uL (150-450); RBC 3.27 m/uL (4.30-5.90); WBC 14.7 k/uL (3.8-10.6)
[2020-12-10 15:49] LABS: HGB 10.6 gm/dL (13.0-17.5)
[2020-12-10 15:49] LABS: ABG Base Excess 0.1 mmol/L; ABG HCO3 26 mmol/L (21-25); ABG PCO2 45 mmHg (35-45); ABG PH 7.37 (7.35-7.45); ABG PO2 356 mmHg (83-108); ABG TCO2 27 mmol/L (19-24)
[2020-12-10] MEDS: CLEVIDIPINE BUTYRATE 25 MG in EMPTY BAG 1 BAG IV SCH (15:51)
[2020-12-10 15:52] LABS: Allen Test Performed? NO
[2020-12-10] MEDS: LACTATED RINGERS 1,000 ML IV SCH (15:52)
[2020-12-10] MEDS: DILTIAZEM 125 MG in SODIUM CHLORIDE 0.9% 100 ML IV SCH ×2 (15:53→23:01)
[2020-12-10 15:54] LABS: Ionized Calcium 4.6 mg/dL (4.5-5.3)
[2020-12-10 15:57] LABS: INR 1.1 (<1.2); Prothrombin Time 11.6 sec (9.0-12.0)
--- NOTE | 2020-12-10 15:58 | XR ---
EXAMINATION TYPE: XR chest 1V portable DATE OF EXAM: 12/10/2020 COMPARISON: Chest x-ray 12/07/2020 HISTORY: Postop cardiac surgery TECHNIQUE: Single frontal view of the chest is obtained. FINDINGS: Patient is post median sternotomy and left atrial appendage clipping placement. Endotrache al tube, median sternal drains, right jugular central venous catheter, left chest tube are overlying appropriate positions, NG tube is in place with distal tip overlying stomach, side-port is thought to be cephalad to the hemidiaphragms. There is no evident pneumothorax or pleural effusion. Lung volume s are low and the patient is rotated. Bandlike areas of increased attenuation within the lungs are pr esent. Cardiomediastinal silhouette shows a somewhat widened appearance, heart not thought likely to be enlarged accounting for technique. IMPRESSION: NG tube as described. Expiratory rotated exam. Probable atelectatic changes bilaterally. Postop findings.
[2020-12-10] MEDS ORDERED: IPRATROPIUM-ALBUTEROL 3 ML NEB INHALATION SCH (16:00)
[2020-12-10 16:02] LABS: ALT 22 U/L (4-49); AST 37 U/L (17-59); African American GFR (CKD) >90 (>60 ml/min/1.73 sqM); Albumin 2.5 g/dL (3.5-5.0); Alkaline Phosphatase 26 U/L (38-126); Anion Gap 4 mmol/L; Blood Urea Nitrogen 16 mg/dL (9-20); Carbon Dioxide 26 mmol/L (22-30); Chloride 108 mmol/L (98-107); Glucose 92 mg/dL (74-99); Magnesium 2.7 mg/dL (1.6-2.3); Non-African American GFR(CKD) >90 (>60 ml/min/1.73 sqM); Potassium 4.4 mmol/L (3.5-5.1); Sodium 138 mmol/L (137-145); Total Bilirubin 0.5 mg/dL (0.2-1.3); Total Protein 4.5 g/dL (6.3-8.2)
[2020-12-10 16:09] LABS: Glucose,Whole Blood 110 mg/dL (75-99)
[2020-12-10] MEDS: ACETAMINOPHEN IV (For NPO) 1,000 MG in EMPTY BAG 1 BAG IVPB SCH (16:14)
[2020-12-10] MEDS ORDERED: INSULIN REGULAR 100 UNIT in SODIUM CHLORIDE 0.9% 100 ML IV SCH (16:15)
[2020-12-10 17:00] LABS: Glucose,Whole Blood 145 mg/dL (75-99)
[2020-12-10] MEDS: KETOROLAC 15 MG/ML 1 ML VIAL IVP SCH ×2 (17:55→17:56)
[2020-12-10 18:09] LABS: Glucose,Whole Blood 147 mg/dL (75-99)
[2020-12-10 18:15] LABS: Basophils % (A) 0 %; Eosinophils # (A) 0.1 k/uL (0-0.7); Eosinophils % (A) 0 %; HCT 34.2 % (39.0-53.0); Lymphocytes # (A) 1.5 k/uL (1.0-4.8); Lymphocytes % (A) 8 %; MCH 33.3 pg (25.0-35.0); MCV 95.1 fL (80.0-100.0); Mean Platelet Volume 7.7; Monocytes # (A) 1.5 k/uL (0-1.0); Monocytes % (A) 8 %; Neutrophils # (A) 15.6 k/uL (1.3-7.7); Neutrophils % (A) 83 %; Platelet Count 189 k/uL (150-450); RBC 3.59 m/uL (4.30-5.90); RDW 11.8 % (11.5-15.5); WBC 18.8 k/uL (3.8-10.6)
[2020-12-10] MEDS: ALBUMIN HUMAN 5% 250 ML in EMPTY BAG 1 BAG IVPB PRN (18:58)
[2020-12-10 19:05] LABS: Glucose,Whole Blood 148 mg/dL (75-99)
[2020-12-10 19:21] LABS: ABG Base Excess -3.5 mmol/L; ABG HCO3 21 mmol/L (21-25); ABG Oxygen Saturation 99.8 % (94-97); ABG PCO2 35 mmHg (35-45); ABG PO2 179 mmHg (83-108); ABG TCO2 22 mmol/L (19-24); Allen Test Performed? Yes
[2020-12-10] MEDS: IPRATROPIUM-ALBUTEROL 3 ML NEB INHALATION SCH (19:40)
[2020-12-10 20:05] LABS: Glucose,Whole Blood 135 mg/dL (75-99)
[2020-12-10 20:14] LABS: Basophils % (A) 0 %; Eosinophils % (A) 0 %; HCT 32.9 % (39.0-53.0); HGB 11.4 gm/dL (13.0-17.5); Lymphocytes # (A) 0.9 k/uL (1.0-4.8); Lymphocytes % (A) 5 %; MCH 32.9 pg (25.0-35.0); MCHC 34.5 g/dL (31.0-37.0); MCV 95.4 fL (80.0-100.0); Mean Platelet Volume 7.1; Monocytes # (A) 1.2 k/uL (0-1.0); Monocytes % (A) 7 %; Neutrophils # (A) 15.2 k/uL (1.3-7.7); Neutrophils % (A) 87 %; Platelet Count 190 k/uL (150-450); RBC 3.45 m/uL (4.30-5.90); RDW 11.8 % (11.5-15.5); WBC 17.5 k/uL (3.8-10.6)
[2020-12-10] MEDS ORDERED: ATORVASTATIN 80 MG TAB PO SCH (21:00)
[2020-12-10 21:13] LABS: Glucose,Whole Blood 133 mg/dL (75-99)
[2020-12-10] MEDS: METOPROLOL TARTRATE 12.5 MG TAB PO SCH (21:31)
[2020-12-10] MEDS: HEPARIN SODIUM,PORCINE 5,000 UNIT/ML 1 ML VIAL SQ SCH (21:32)
[2020-12-10 21:57] LABS: Glucose,Whole Blood 133 mg/dL (75-99)
[2020-12-10 23:06] LABS: Glucose,Whole Blood 129 mg/dL (75-99)
--- NOTE | 2020-12-10 23:16 | OP ---
OPERATIVE REPORT DATE OF SURGERY: 12/10/2020. PREOPERATIVE DIAGNOSIS: Coronary artery disease. POSTOPERATIVE DIAGNOSIS: Coronary artery disease. PROCEDURE PERFORMED: 1. Coronary artery bypass grafting x4 vessels (left internal mammary artery to left anterior descending artery, radial artery to obtuse marginal artery, saphenous vein graft to diagonal artery, saphenous vein graft to distal right coronary artery). 2. Endoscopic harvest left greater saphenous vein. 3. Endoscopic harvest left radial artery. 4. Epiaortic ultrasound. 5. Transesophageal echocardiogram. 6. Ligation of left atrial appendage using 35 mm AtriCure. SURGEON: Oneil Stack MD. CURRENCY EXAMINER: 1. Julisa GUEVARA. 2. Harry Dozier NP. ANESTHESIA: General. SPECIMEN: None. COMPLICATION: None. INDICATION: The patient is a 70-year-old male with a past medical history significant for hyperlipidemia and hypertension who presented to his primary care physician after an episode of chest pain and left upper extremity pain. Workup included a cardiac catheterization which revealed multivessel coronary artery disease. A coronary artery bypass was recommended. As part of his workup, a carotid duplex was performed and did reveal bilateral carotid artery disease. A followup CTA of the head and neck was also performed which again revealed at least 70% stenosis bilaterally in his carotid arteries. However, since he is not symptomatic from a neurological standpoint, we elected to proceed with bypass surgery knowing that he may need a carotid artery stenting in the future. The risks, benefits, and alternatives to coronary artery bypass surgery were discussed with the patient and his . All other questions were answered. Consent was obtained. FINDINGS: The left internal mammary artery was a good conduit with brisk flow. The radial artery was good conduit. The saphenous vein was a good conduit. The LAD measured 1.5 mm. The high diagonal artery measured 1.3 mm. The obtuse marginal artery measured 1.5 mm. The distal right coronary artery measured 1.3 mm. PROCEDURE IN DETAIL: The patient was taken to the operating room and placed supine on the operating table. After the induction of general anesthesia, he was prepped and draped in the usual sterile fashion. Preoperative transesophageal echocardiogram revealed normal ejection fraction with no significant valvular pathology. A median sternotomy was performed. The left internal mammary artery was harvested in a standard fashion taking care to clip all branches. Intravenous heparin was administered. The vessel was transected distally revealing brisk flow. Simultaneously, radial artery was harvested from the left upper extremity using endoscopic technique. An additional saphenous vein was harvested from the left lower extremity using endoscopic technique. All 3 vessels were good conduits. A pericardial cradle was created. The ascending aorta was palpated. There was no significant calcific plaque noted. Epiaortic ultrasound was then performed on the ascending aorta. Again no calcific plaque or atheromatous disease was identified. An arterial cannula was placed in the distal ascending aorta. A venous cannula was placed through the right atrial appendage and directed into the IVC. Both antegrade and retrograde catheters were placed as well. The patient was then placed on cardiopulmonary bypass with good decompression of the heart. The cross-clamp was applied. Cold blood potassium cardioplegia was delivered both antegrade and retrograde fashion to achieve arrest of the heart. Of note, cardioplegia was delivered every 15 to 20 minutes while the patient remained under cross-clamp. We began by identifying the left atrial appendage. A 35 mm Atra cup was placed across the space to ensure ligation. Next, attention was turned to the inferior wall. The distal right coronary artery was dissected free. It was a small vessel but amenable for bypass. A small arteriotomy was created. This vessel accepted a 1.0 mm probe. Using saphenous vein in a reverse fashion, an end-to-side anastomosis was created. This performed using running 7-0 Prolene suture. The grafts was hemostatic and had good flow. Next, the lateral vessel was inspected. The obtuse marginal was identified. It was dissected free. A small arteriotomy was created. This vessel accepted a 1.5 mm probe. Using the radial artery, an end-to-side anastomosis was created. This was performed using running 7-0 Prolene suture. The graft was hemostatic and had great flow. Next, a high diagonal artery was dissected free. Calcific plaque was palpable proximally. A small arteriotomy was created in its midportion. This vessel accepted a 1.0 mm probe. Using saphenous vein in a reverse fashion, end-to-side anastomosis was created. This was performed using running 7-0 Prolene suture. The graft was hemostatic and had great flow. Finally the left anterior descending artery was identified. It was dissected free in its midportion. A small arteriotomy was created. This vessel accepted a 1.5 mm probe. Using the left internal mammary artery, an end-to-side anastomosis was created. This was performed using a running 8-0 Prolene suture. The graft was hemostatic. The mammary pedicle was then tacked down to the anterior surface of the heart. Attention was then turned to the proximal anastomoses. These were all performed in an end-to-side fashion using running 6-0 Prolene suture. 1 L of warm blood was delivered in retrograde fashion. Both lidocaine and magnesium were administered as well. The cross-clamp was removed. The vein grafts were de-aired in the standard fashion. Distal anastomoses were inspected, appeared to be hemostatic. Temporary atrial and ventricular pacing wires were placed and brought through the skin. The patient was then weaned off cardiopulmonary bypass. He without any difficulty. Followup transesophageal echocardiogram confirmed no intracardiac air. The ejection fraction was still normal, and no valvular pathology was seen. Protamine was administered. There were no adverse reactions. The remaining cannulas were then removed. The mediastinum was copiously irrigated with warm saline solution. All surgical sites were again inspected and appeared to be hemostatic. Soft tissues reapproximated the ascending aorta as well as of the apex of the heart. Straight 32-Malay chest tubes were placed with the left breast placed in the mediastinum. These were all secured to the skin using sutures. The sternum was then reapproximated using the [place] cable system. The cables were placed in a [id number] fashion. At the completion of the closure, the sternum was well aligned. The remainder of the wound was closed in layers. Sterile dressing was applied. The patient appeared to tolerate the procedure well. There were no immediate complications. He returned to the ICU in critical but stable condition. He did maintain a good perfusion pressure throughout the case. He did not receive any intraoperative blood products. MMODL / IJN: [id number] /
[2020-12-11] MEDS: ACETAMINOPHEN IV (For NPO) 1,000 MG in EMPTY BAG 1 BAG IVPB SCH
[2020-12-11] MEDS: KETOROLAC 15 MG/ML 1 ML VIAL IVP SCH ×4 (00:01→17:31)
[2020-12-11 00:16] LABS: Glucose,Whole Blood 131 mg/dL (75-99)
[2020-12-11 02:02] LABS: Glucose,Whole Blood 134 mg/dL (75-99)
[2020-12-11] MEDS ORDERED: HYDROcodone/APAP 5-325MG 1 EACH TAB PO PRN (02:23)
[2020-12-11 03:07] LABS: Glucose,Whole Blood 137 mg/dL (75-99)
[2020-12-11 04:10] LABS: Glucose,Whole Blood 130 mg/dL (75-99)
[2020-12-11 04:15] LABS: Basophils % (A) 0 %; Eosinophils % (A) 0 %; HCT 29.2 % (39.0-53.0); HGB 10.1 gm/dL (13.0-17.5); Lymphocytes # (A) 0.8 k/uL (1.0-4.8); Lymphocytes % (A) 7 %; MCHC 34.6 g/dL (31.0-37.0); MCV 95.4 fL (80.0-100.0); Mean Platelet Volume 8.3; Monocytes # (A) 0.9 k/uL (0-1.0); Monocytes % (A) 8 %; Neutrophils # (A) 10.5 k/uL (1.3-7.7); Neutrophils % (A) 85 %; Platelet Count 162 k/uL (150-450); RBC 3.06 m/uL (4.30-5.90); RDW 11.8 % (11.5-15.5); WBC 12.4 k/uL (3.8-10.6)
[2020-12-11 04:38] LABS: Ionized Calcium 4.5 mg/dL (4.5-5.3)
[2020-12-11 04:48] LABS: ALT 23 U/L (4-49); AST 41 U/L (17-59); African American GFR (CKD) >90 (>60 ml/min/1.73 sqM); Albumin 2.9 g/dL (3.5-5.0); Alkaline Phosphatase 32 U/L (38-126); Anion Gap 5 mmol/L; Blood Urea Nitrogen 20 mg/dL (9-20); Calcium 7.4 mg/dL (8.4-10.2); Carbon Dioxide 23 mmol/L (22-30); Chloride 107 mmol/L (98-107); Glucose 118 mg/dL (74-99); Magnesium 2.2 mg/dL (1.6-2.3); Non-African American GFR(CKD) 83 (>60 ml/min/1.73 sqM); Potassium 4.6 mmol/L (3.5-5.1); Sodium 135 mmol/L (137-145); Total Bilirubin 0.4 mg/dL (0.2-1.3)
[2020-12-11] MEDS: HYDROcodone/APAP 5-325MG 1 EACH TAB PO PRN ×4 (04:53→20:28)
[2020-12-11] MEDS: ALBUMIN HUMAN 5% 250 ML in EMPTY BAG 1 BAG IVPB PRN ×2 (06:12→16:33)
[2020-12-11 06:25] LABS: Glucose,Whole Blood 135 mg/dL (75-99)
[2020-12-11] MEDS: LACTATED RINGERS 1,000 ML IV SCH (06:28)
[2020-12-11 07:09] LABS: Glucose,Whole Blood 133 mg/dL (75-99)
[2020-12-11] MEDS: IPRATROPIUM-ALBUTEROL 3 ML NEB INHALATION SCH ×4 (07:20→21:22)
[2020-12-11 08:03] LABS: Glucose,Whole Blood 121 mg/dL (75-99)
[2020-12-11] MEDS: METOPROLOL TARTRATE 12.5 MG TAB PO SCH ×2 (08:16→22:24)
[2020-12-11] MEDS: CLOPIDOGREL 75 MG TAB PO SCH (08:16)
[2020-12-11] MEDS: TAMSULOSIN 0.4 MG CAP.ER.24H PO SCH (08:16)
[2020-12-11] MEDS: DILTIAZEM ORAL 30 MG TAB PO SCH ×3 (08:16→17:32)
[2020-12-11] MEDS: ATORVASTATIN 40 MG TAB PO SCH (08:16)
[2020-12-11] MEDS: HEPARIN SODIUM,PORCINE 5,000 UNIT/ML 1 ML VIAL SQ SCH ×2 (08:16→15:00)
[2020-12-11] MEDS: ASPIRIN 325 MG TAB PO SCH (08:16)
[2020-12-11] MEDS: MULTIVITAMINS, THERA 1 EACH TAB PO SCH (08:17)
--- NOTE | 2020-12-11 08:52 | P.PN ---
Subjective Progress Note Date: 12/11/20 Principal diagnosis: Coronary artery disease with left main disease, unstable angina. Previous medical history of hypertension, hyperlipidemia, enlarged prostate, never smoker, bilateral internal carotid artery stenosis, and family history of premature coronary artery disease POD #1 coronary artery bypass grafting 4 vessels, left internal mammary artery to the left anterior descending artery, radial artery to the obtuse marginal artery, reverse saphenous vein graft to the diagonal artery, reverse saphenous vein graft to the distal right coronary artery, endoscopic harvesting of the left greater saphenous vein, endoscopic harvest of the left radial artery, epi- aortic ultrasound, intraoperative transesophageal echocardiogram, ligation of the left atrial appendage using a 35 mm AtriCure clip. The patient's currently sitting up in a recliner in the intensive care unit in no acute distress. He was successfully extubated last night 19:30. Does complain of postoperative chest pain controlled on current medication regimen, denies shortness of breath. Actively using incentive spirometer. Remains in sinus rhythm, hemodynamically stable although blood pressure once getting up in the chair was borderline hypotensive for his level of carotid artery disease and he was given some IV fluid. Mediastinal, left pleural chest tubes, right internal jugular Clanton/Cordis, right radial arterial line all present. No other new concerns. Objective - Vital Signs Vital signs: Vital Signs Temp 99.5 F 12/11/20 04:00 Pulse 91 12/11/20 07:36 Resp 22 12/11/20 07:00 BP 112/53 12/11/20 07:00 Pulse Ox 94 L 12/11/20 07:00 Intake & Output 12/10/20 12/11/20 12/11/20 18:59 06:59 18:59 Intake Total 512.450 7418.317 59 Output Total 2793 770 35 Balance -2391.966 1151.317 24 Weight 112.5 kg Intake: IV 353 1502 59 ACETAMINOPHEN IV (For NPO 100 100 ) 1,000 mg In Empty Bag 1 bag @ 400 mls/hr IVPB Q6HR JORDIN Rx#:[id number] Albumin Human 5% 250 ml 500 In Empty Bag 1 bag @ 250 mls/hr IVPB Q1HR PRN Rx#: [id number] CO/CI 140 Lactated Ringers 1,000 ml 150 600 50 @ 50 mls/hr IV .Q20H JORDIN Rx#:[id number] ceFAZolin 2 gm In Sodium 50 50 Chloride 0.9% 50 ml @ 100 mls/hr IVPB Q8HR JORDIN Rx# :[id number] pressure bag 112 9 Intake, IV Titration 48.034 59.317 Amount Clevidipine Butyrate 25 10.534 mg In Empty Bag 1 bag @ 1 MG/HR 2 mls/hr IV .Q24H JORDIN Rx#:[id number] Dexmedetomidine/0.9% NaCl 5.776 (Pmx) 400 mcg In Empty Bag 1 bag @ Titrate IV . Q0M JORDIN Rx#:[id number] Diltiazem 125 mg In 36.667 Sodium Chloride 0.9% 100 ml @ 5 MG/HR 5 mls/hr IV .Q24H JORDIN Rx#:[id number] Insulin Regular 100 unit 1.65 22.650 In Sodium Chloride 0.9% 100 ml @ Per Protocol IV .Q0M JORDIN Rx#:[id number] propofoL 1,000 mg In 30.074 Empty Bag 1 bag @ Titrate IV .Q0M JORDIN Rx#: [id number] Oral 360 Output: Chest Tube Drainage 158 270 20 Left Left Pleural/ 10 23 10 Mediastinal Medistinal x2 148 247 10 Drainage 60 20 0 Left Wrist 60 20 0 Urine 1175 480 15 Estimated Blood Loss 1400 Other: Voiding Method Indwelling Catheter Indwelling Catheter ABP, PAP, CO, CI - Last Documented Arterial Blood Pressure 103/43 Pulmonary Artery Pressure 23/7 Cardiac Output 6.8 Cardiac Index 2.9 - Constitutional General appearance: Present: cooperative, no acute distress - Respiratory Details: Lungs sounds diminished bilaterally. Respirations even, nonlabored. Currently on room air with oxygen saturation 94%. Able to achieve 1000 mL on his incenti ve spirometry. Weak cough. Mediastinal chest tube present to continuous wall suction, 190 mL of thin serosanguineous drainage overnight, 420 mL since surgery. Left pleural chest tubes present to continuous wall suction, 25 mL thin serosanguineous drainage overnight, 35 mL since surgery. No air leaks present. - Cardiovascular Details: S1, S2 present. Regular rate and rhythm, sinus rhythm on telemetry. Sternum stable. A/P epicardial pacemaker wires present, connected to generator, VVI mode with backup rate 50 bpm. Palpable peripheral pulses bilaterally. Trace generalized edema present. No calf pain or tenderness noted. Heart hugger in place with patient demonstrating appropriate use. Antiembolism stockings, SCDs present. Right internal jugular Clanton/Cordis, right radial arterial line present. Last CO/CI 6.8/2.9 with CVP 9 and PA pressure 20/7 on no inotropes or pressors. - Gastrointestinal Gastrointestinal Comment(s): Abdomen soft, nontender, nondistended. Hypoactive bowel sounds present 4 quadrants. Tolerating clear liquids. Denies flatus, does complain of some nausea - Genitourinary Genitourinary Comment(s): Moreland present draining clear, yellow urine. Output 50-75 mL/h overnight, down to 20 mL/h this morning - Integumentary Integumentary Comment(s): Skin is warm and dry with evidence of good perfusion. Anterior chest incision well approximated and covered with dry intact dressing. Left lower extremity EVH site well approximated without redness or drainage. Left radial artery harvest site with CHICO drain present, minimal drainage. 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 - Neurologic Neurologic: Present: CNII-XII intact - Musculoskeletal Musculoskeletal: Present: gait normal, strength equal bilaterally - Psychiatric Psychiatric: Present: A&O x's 3, appropriate affect, intact judgment & insight - Allied health notes Allied health notes reviewed: nursing - Labs CBC & Chem 7: 12/11/20 04:00 12/11/20 04:00 Labs: Abnormal Lab Results - Last 24 Hours (Table) 12/07/20 12/10/20 12/10/20 Range/Units 14:52 08:00 08:20 WBC (3.8-10.6) k/uL RBC (4.30-5.90) m/uL Hgb (13.0-17.5) gm/dL Hct (39.0-53.0) % Plt Count (150-450) k/uL Neutrophils # (1.3-7.7) k/uL Lymphocytes # (1.0-4.8) k/uL Monocytes # (0-1.0) k/uL ABG pH (7.35-7.45) ABG pCO2 (35-45) mmHg ABG pO2 >420 H >420 H (83-108) mmHg ABG HCO3 (21-25) mmol/L ABG Total CO2 26 H 26 H (19-24) mmol/L ABG O2 Saturation 100.0 H 100.0 H (94-97) % ABG Hematocrit (34.0-46.0) % ABG Sodium (135-146) mmol/L ABG Potassium (3.4-4.5) mmol/L ABG Ionized Calcium (4.5-5.3) mg/dL ABG Glucose (75-99) mg/dL ABG Lactic Acid (0.5-1.6) mmol/L Hemoglobin (13.0-17.5) gm/dL Sodium (137-145) mmol/L Chloride (98-107) mmol/L Glucose (74-99) mg/dL POC Glucose (mg/dL) (75-99) mg/dL Calcium (8.4-10.2) mg/dL Magnesium (1.6-2.3) mg/dL Alkaline Phosphatase (38-126) U/L Total Protein (6.3-8.2) g/dL Albumin (3.5-5.0) g/dL Arterial Blood Potassium (3.4-4.5) mmol/L Arterial Blood Glucose (75-99) mg/dL Crossmatch See Detail 12/10/20 12/10/20 12/10/20 Range/Units 09:52 10:59 11:39 WBC (3.8-10.6) k/uL RBC (4.30-5.90) m/uL Hgb (13.0-17.5) gm/dL Hct (39.0-53.0) % Plt Count (150-450) k/uL Neutrophils # (1.3-7.7) k/uL Lymphocytes # (1.0-4.8) k/uL Monocytes # (0-1.0) k/uL ABG pH 7.30 L (7.35-7.45) ABG pCO2 51 H (35-45) mmHg ABG pO2 243 H 304 H 411 H (83-108) mmHg ABG HCO3 (21-25) mmol/L ABG Total CO2 27 H 25 H 25 H (19-24) mmol/L ABG O2 Saturation 99.7 H 100.0 H 100.0 H (94-97) % ABG Hematocrit 27 L (34.0-46.0) % ABG Sodium 134 L (135-146) mmol/L ABG Potassium 5.6 H (3.4-4.5) mmol/L ABG Ionized Calcium 4.4 L 3.9 L (4.5-5.3) mg/dL ABG Glucose 112 H 112 H 196 H (75-99) mg/dL ABG Lactic Acid (0.5-1.6) mmol/L Hemoglobin 12.6 L 11.6 L 8.9 L (13.0-17.5) gm/dL Sodium (137-145) mmol/L Chloride (98-107) mmol/L Glucose (74-99) mg/dL POC Glucose (mg/dL) (75-99) mg/dL Calcium (8.4-10.2) mg/dL Magnesium (1.6-2.3) mg/dL Alkaline Phosphatase (38-126) U/L Total Protein (6.3-8.2) g/dL Albumin (3.5-5.0) g/dL Arterial Blood Potassium 5.6 H (3.4-4.5) mmol/L Arterial Blood Glucose 112 H 112 H 196 H (75-99) mg/dL Crossmatch 12/10/20 12/10/20 12/10/20 Range/Units 12:07 12:40 15:28 WBC 14.7 H (3.8-10.6) k/uL RBC 3.27 L (4.30-5.90) m/uL Hgb 10.6 L D (13.0-17.5) gm/dL Hct 31.5 L (39.0-53.0) % Plt Count 141 L (150-450) k/uL Neutrophils # 12.0 H (1.3-7.7) k/uL Lymphocytes # (1.0-4.8) k/uL Monocytes # (0-1.0) k/uL ABG pH 7.33 L 7.34 L (7.35-7.45) ABG pCO2 47 H (35-45) mmHg ABG pO2 362 H 363 H (83-108) mmHg ABG HCO3 (21-25) mmol/L ABG Total CO2 25 H 27 H (19-24) mmol/L ABG O2 Saturation 100.0 H 100.0 H (94-97) % ABG Hematocrit 26 L 25 L (34.0-46.0) % ABG Sodium (135-146) mmol/L ABG Potassium 4.6 H (3.4-4.5) mmol/L ABG Ionized Calcium 4.0 L 4.0 L (4.5-5.3) mg/dL ABG Glucose 145 H 158 H (75-99) mg/dL ABG Lactic Acid 1.9 H (0.5-1.6) mmol/L Hemoglobin 8.6 L 8.1 L (13.0-17.5) gm/dL Sodium (137-145) mmol/L Chloride (98-107) mmol/L Glucose (74-99) mg/dL POC Glucose (mg/dL) (75-99) mg/dL Calcium (8.4-10.2) mg/dL Magnesium (1.6-2.3) mg/dL Alkaline Phosphatase (38-126) U/L Total Protein (6.3-8.2) g/dL Albumin (3.5-5.0) g/dL Arterial Blood Potassium 4.6 H (3.4-4.5) mmol/L Arterial Blood Glucose 145 H 158 H (75-99) mg/dL Crossmatch 12/10/20 12/10/20 12/10/20 Range/Units 15:28 15:48 16:06 WBC (3.8-10.6) k/uL RBC (4.30-5.90) m/uL Hgb (13.0-17.5) gm/dL Hct (39.0-53.0) % Plt Count (150-450) k/uL Neutrophils # (1.3-7.7) k/uL Lymphocytes # (1.0-4.8) k/uL Monocytes # (0-1.0) k/uL ABG pH (7.35-7.45) ABG pCO2 (35-45) mmHg ABG pO2 356 H (83-108) mmHg ABG HCO3 26 H (21-25) mmol/L ABG Total CO2 27 H (19-24) mmol/L ABG O2 Saturation 100.0 H (94-97) % ABG Hematocrit (34.0-46.0) % ABG Sodium (135-146) mmol/L ABG Potassium (3.4-4.5) mmol/L ABG Ionized Calcium (4.5-5.3) mg/dL ABG Glucose (75-99) mg/dL ABG Lactic Acid (0.5-1.6) mmol/L Hemoglobin (13.0-17.5) gm/dL Sodium (137-145) mmol/L Chloride 108 H (98-107) mmol/L Glucose (74-99) mg/dL POC Glucose (mg/dL) 110 H (75-99) mg/dL Calcium 7.0 L (8.4-10.2) mg/dL Magnesium 2.7 H (1.6-2.3) mg/dL Alkaline Phosphatase 26 L (38-126) U/L Total Protein 4.5 L (6.3-8.2) g/dL Albumin 2.5 L (3.5-5.0) g/dL Arterial Blood Potassium (3.4-4.5) mmol/L Arterial Blood Glucose (75-99) mg/dL Crossmatch 12/10/20 12/10/20 12/10/20 Range/Units 16:59 18:07 18:11 WBC 18.8 H (3.8-10.6) k/uL RBC 3.59 L (4.30-5.90) m/uL Hgb 12.0 L (13.0-17.5) gm/dL Hct 34.2 L (39.0-53.0) % Plt Count (150-450) k/uL Neutrophils # 15.6 H (1.3-7.7) k/uL Lymphocytes # (1.0-4.8) k/uL Monocytes # 1.5 H (0-1.0) k/uL ABG pH (7.35-7.45) ABG pCO2 (35-45) mmHg ABG pO2 (83-108) mmHg ABG HCO3 (21-25) mmol/L ABG Total CO2 (19-24) mmol/L ABG O2 Saturation (94-97) % ABG Hematocrit (34.0-46.0) % ABG Sodium (135-146) mmol/L ABG Potassium (3.4-4.5) mmol/L ABG Ionized Calcium (4.5-5.3) mg/dL ABG Glucose (75-99) mg/dL ABG Lactic Acid (0.5-1.6) mmol/L Hemoglobin (13.0-17.5) gm/dL Sodium (137-145) mmol/L Chloride (98-107) mmol/L Glucose (74-99) mg/dL POC Glucose (mg/dL) 145 H 147 H (75-99) mg/dL Calcium (8.4-10.2) mg/dL Magnesium (1.6-2.3) mg/dL Alkaline Phosphatase (38-126) U/L Total Protein (6.3-8.2) g/dL Albumin (3.5-5.0) g/dL Arterial Blood Potassium (3.4-4.5) mmol/L Arterial Blood Glucose (75-99) mg/dL Crossmatch 12/10/20 12/10/20 12/10/20 Range/Units 18:58 19:04 20:00 WBC 17.5 H (3.8-10.6) k/uL RBC 3.45 L (4.30-5.90) m/uL Hgb 11.4 L (13.0-17.5) gm/dL Hct 32.9 L (39.0-53.0) % Plt Count (150-450) k/uL Neutrophils # 15.2 H (1.3-7.7) k/uL Lymphocytes # 0.9 L (1.0-4.8) k/uL Monocytes # 1.2 H (0-1.0) k/uL ABG pH (7.35-7.45) ABG pCO2 (35-45) mmHg ABG pO2 179 H (83-108) mmHg ABG HCO3 (21-25) mmol/L ABG Total CO2 (19-24) mmol/L ABG O2 Saturation 99.8 H (94-97) % ABG Hematocrit (34.0-46.0) % ABG Sodium (135-146) mmol/L ABG Potassium (3.4-4.5) mmol/L ABG Ionized Calcium (4.5-5.3) mg/dL ABG Glucose (75-99) mg/dL ABG Lactic Acid (0.5-1.6) mmol/L Hemoglobin (13.0-17.5) gm/dL Sodium (137-145) mmol/L Chloride (98-107) mmol/L Glucose (74-99) mg/dL POC Glucose (mg/dL) 148 H (75-99) mg/dL Calcium (8.4-10.2) mg/dL Magnesium (1.6-2.3) mg/dL Alkaline Phosphatase (38-126) U/L Total Protein (6.3-8.2) g/dL Albumin (3.5-5.0) g/dL Arterial Blood Potassium (3.4-4.5) mmol/L Arterial Blood Glucose (75-99) mg/dL Crossmatch 12/10/20 12/10/20 12/10/20 Range/Units 20:03 21:11 21:55 WBC (3.8-10.6) k/uL RBC (4.30-5.90) m/uL Hgb (13.0-17.5) gm/dL Hct (39.0-53.0) % Plt Count (150-450) k/uL Neutrophils # (1.3-7.7) k/uL Lymphocytes # (1.0-4.8) k/uL Monocytes # (0-1.0) k/uL ABG pH (7.35-7.45) ABG pCO2 (35-45) mmHg ABG pO2 (83-108) mmHg ABG HCO3 (21-25) mmol/L ABG Total CO2 (19-24) mmol/L ABG O2 Saturation (94-97) % ABG Hematocrit (34.0-46.0) % ABG Sodium (135-146) mmol/L ABG Potassium (3.4-4.5) mmol/L ABG Ionized Calcium (4.5-5.3) mg/dL ABG Glucose (75-99) mg/dL ABG Lactic Acid (0.5-1.6) mmol/L Hemoglobin (13.0-17.5) gm/dL Sodium (137-145) mmol/L Chloride (98-107) mmol/L Glucose (74-99) mg/dL POC Glucose (mg/dL) 135 H 133 H 133 H (75-99) mg/dL Calcium (8.4-10.2) mg/dL Magnesium (1.6-2.3) mg/dL Alkaline Phosphatase (38-126) U/L Total Protein (6.3-8.2) g/dL Albumin (3.5-5.0) g/dL Arterial Blood Potassium (3.4-4.5) mmol/L Arterial Blood Glucose (75-99) mg/dL Crossmatch 12/10/20 12/11/20 12/11/20 Range/Units 23:06 00:14 02:00 WBC (3.8-10.6) k/uL RBC (4.30-5.90) m/uL Hgb (13.0-17.5) gm/dL Hct (39.0-53.0) % Plt Count (150-450) k/uL Neutrophils # (1.3-7.7) k/uL Lymphocytes # (1.0-4.8) k/uL Monocytes # (0-1.0) k/uL ABG pH (7.35-7.45) ABG pCO2 (35-45) mmHg ABG pO2 (83-108) mmHg ABG HCO3 (21-25) mmol/L ABG Total CO2 (19-24) mmol/L ABG O2 Saturation (94-97) % ABG Hematocrit (34.0-46.0) % ABG Sodium (135-146) mmol/L ABG Potassium (3.4-4.5) mmol/L ABG Ionized Calcium (4.5-5.3) mg/dL ABG Glucose (75-99) mg/dL ABG Lactic Acid (0.5-1.6) mmol/L Hemoglobin (13.0-17.5) gm/dL Sodium (137-145) mmol/L Chloride (98-107) mmol/L Glucose (74-99) mg/dL POC Glucose (mg/dL) 129 H 131 H 134 H (75-99) mg/dL Calcium (8.4-10.2) mg/dL Magnesium (1.6-2.3) mg/dL Alkaline Phosphatase (38-126) U/L Total Protein (6.3-8.2) g/dL Albumin (3.5-5.0) g/dL Arterial Blood Potassium (3.4-4.5) mmol/L Arterial Blood Glucose (75-99) mg/dL Crossmatch 12/11/20 12/11/20 12/11/20 Range/Units 03:06 04:00 04:00 WBC 12.4 H (3.8-10.6) k/uL RBC 3.06 L (4.30-5.90) m/uL Hgb 10.1 L (13.0-17.5) gm/dL Hct 29.2 L (39.0-53.0) % Plt Count (150-450) k/uL Neutrophils # 10.5 H (1.3-7.7) k/uL Lymphocytes # 0.8 L (1.0-4.8) k/uL Monocytes # (0-1.0) k/uL ABG pH (7.35-7.45) ABG pCO2 (35-45) mmHg ABG pO2 (83-108) mmHg ABG HCO3 (21-25) mmol/L ABG Total CO2 (19-24) mmol/L ABG O2 Saturation (94-97) % ABG Hematocrit (34.0-46.0) % ABG Sodium (135-146) mmol/L ABG Potassium (3.4-4.5) mmol/L ABG Ionized Calcium (4.5-5.3) mg/dL ABG Glucose (75-99) mg/dL ABG Lactic Acid (0.5-1.6) mmol/L Hemoglobin (13.0-17.5) gm/dL Sodium 135 L (137-145) mmol/L Chloride (98-107) mmol/L Glucose 118 H (74-99) mg/dL POC Glucose (mg/dL) 137 H (75-99) mg/dL Calcium 7.4 L (8.4-10.2) mg/dL Magnesium (1.6-2.3) mg/dL Alkaline Phosphatase 32 L (38-126) U/L Total Protein 5.0 L (6.3-8.2) g/dL Albumin 2.9 L (3.5-5.0) g/dL Arterial Blood Potassium (3.4-4.5) mmol/L Arterial Blood Glucose (75-99) mg/dL Crossmatch 12/11/20 12/11/20 12/11/20 Range/Units 04:08 06:23 07:08 WBC (3.8-10.6) k/uL RBC (4.30-5.90) m/uL Hgb (13.0-17.5) gm/dL Hct (39.0-53.0) % Plt Count (150-450) k/uL Neutrophils # (1.3-7.7) k/uL Lymphocytes # (1.0-4.8) k/uL Monocytes # (0-1.0) k/uL ABG pH (7.35-7.45) ABG pCO2 (35-45) mmHg ABG pO2 (83-108) mmHg ABG HCO3 (21-25) mmol/L ABG Total CO2 (19-24) mmol/L ABG O2 Saturation (94-97) % ABG Hematocrit (34.0-46.0) % ABG Sodium (135-146) mmol/L ABG Potassium (3.4-4.5) mmol/L ABG Ionized Calcium (4.5-5.3) mg/dL ABG Glucose (75-99) mg/dL ABG Lactic Acid (0.5-1.6) mmol/L Hemoglobin (13.0-17.5) gm/dL Sodium (137-145) mmol/L Chloride (98-107) mmol/L Glucose (74-99) mg/dL POC Glucose (mg/dL) 130 H 135 H 133 H (75-99) mg/dL Calcium (8.4-10.2) mg/dL Magnesium (1.6-2.3) mg/dL Alkaline Phosphatase (38-126) U/L Total Protein (6.3-8.2) g/dL Albumin (3.5-5.0) g/dL Arterial Blood Potassium (3.4-4.5) mmol/L Arterial Blood Glucose (75-99) mg/dL Crossmatch 12/11/20 Range/Units 08:02 WBC (3.8-10.6) k/uL RBC (4.30-5.90) m/uL Hgb (13.0-17.5) gm/dL Hct (39.0-53.0) % Plt Count (150-450) k/uL Neutrophils # (1.3-7.7) k/uL Lymphocytes # (1.0-4.8) k/uL Monocytes # (0-1.0) k/uL ABG pH (7.35-7.45) ABG pCO2 (35-45) mmHg ABG pO2 (83-108) mmHg ABG HCO3 (21-25) mmol/L ABG Total CO2 (19-24) mmol/L ABG O2 Saturation (94-97) % ABG Hematocrit (34.0-46.0) % ABG Sodium (135-146) mmol/L ABG Potassium (3.4-4.5) mmol/L ABG Ionized Calcium (4.5-5.3) mg/dL ABG Glucose (75-99) mg/dL ABG Lactic Acid (0.5-1.6) mmol/L Hemoglobin (13.0-17.5) gm/dL Sodium (137-145) mmol/L Chloride (98-107) mmol/L Glucose (74-99) mg/dL POC Glucose (mg/dL) 121 H (75-99) mg/dL Calcium (8.4-10.2) mg/dL Magnesium (1.6-2.3) mg/dL Alkaline Phosphatase (38-126) U/L Total Protein (6.3-8.2) g/dL Albumin (3.5-5.0) g/dL Arterial Blood Potassium (3.4-4.5) mmol/L Arterial Blood Glucose (75-99) mg/dL Crossmatch - Imaging and Cardiology Chest x-ray: image reviewed Assessment and Plan Assessment: 1. Coronary artery disease with left main disease, unstable angina, status post four-vessel CABG 2. Hypertension 3. Hyperlipidemia, treated, cholesterol 95, LDL 47 4. Enlarged prostate, treated 5. Never smoker, preoperative FEV1 91% of predicted 6. Bilateral internal carotid artery stenosis, 65-70% on the right and near 75% on the left per angiography, asymptomatic 7. Family history of premature coronary artery disease Plan: 1. Continue aspirin, statin, Plavix, beta marcus therapy. Will increase beta marcus therapy as tolerated. 2. Discontinue IV nitro. Discontinue IV Cardizem, transition to oral Cardizem for radial artery spasm. Do not discontinue CCB without discussing with cardio thoracic surgery 3. Encourage incentive spirometry use 10 times every hour while awake. Bronchodilators per pulmonology 4. Increase activity, ambulate as tolerated. PT/OT/cardiac rehab consulted 5. Will monitor daily labs and x-rays. Electrolyte replacement per protocol 6. GI/DVT prophylaxis 7. Pain control with current medication regimen. 8. Insulin management per primary care service. Patient is not diabetic, preoperative A1c 5.7% 9. Discontinue Clanton. Connect cordis to continuous CVP monitoring. Will discontinue CHICO 10. Will keep mediastinal, left pleural chest tubes for another 24 hours 11. Will keep Moreland catheter for another 24 hours for strict accurate intake and output. Daily weights. 12. More recommendations to follow Time with Patient: Greater than 30
[2020-12-11] MEDS ORDERED: METOPROLOL TARTRATE 12.5 MG TAB PO SCH (09:00)
[2020-12-11] MEDS ORDERED: MAGNESIUM HYDROXIDE 2,400 MG/10 ML CUP PO PRN (09:00)
[2020-12-11] MEDS ORDERED: bisacodyL 10 MG SUPP RECTAL PRN (09:00)
[2020-12-11] MEDS ORDERED: PANTOPRAZOLE 40 MG/10 ML VIAL IVP SCH (09:00)
[2020-12-11 09:01] LABS: Glucose,Whole Blood 100 mg/dL (75-99)
--- NOTE | 2020-12-11 09:38 | CONS ---
CONSULTATION A 70-year-old white male who has had recently triple-vessel disease on heart catheterization, status post 4 CABG surgery. Remains on the ventilator. Trying to wean off the ventilator as we speak. REVIEW OF SYSTEMS: Unobtainable. He is on the vent. Patient's father had of a myocardial infarction at age 5252 years old. He had exertional chest pain for which we found some blockages. PAST MEDICAL HISTORY: Hypertension, prostate disorder, coronary artery disease, chest pain, angina, dyslipidemia. PAST SURGICAL HISTORY: Colonoscopy, shock wave treatments for renal stones. FAMILY HISTORY: Congestive heart failure, coronary artery disease, hypertension. Father coronary artery disease, myocardial infarction, cancer. Sister with cancer, breast cancer. MEDICATIONS: Home medicines include aspirin 81 mg daily, fluticasone nasal spray daily, Cozaar 25 daily, multivitamin daily, Flomax 0.4 mg daily, Lipitor 80 daily, Coreg 6.25 b.i.d. He is resting comfortably on the vent at this point. CARDIOVASCULAR: S1, S2. LUNGS: Essentially clear. Resting comfortably. ABDOMEN: Distended, obesity. ASSESSMENT: 1. Status post coronary artery bypass grafting. 2. Ventilator treatment. 3. Four-vessel coronary artery bypass grafting surgery. 4. Hypertension. 5. Benign prostatic hypertrophy. 6. Dyslipidemia. Continue current treatments. Home medicines restarted. Wean off the vent. MMODL / IJN: [id number] /
[2020-12-11 10:27] VITALS: BMI 31.8
--- NOTE | 2020-12-11 10:53 | XR ---
EXAMINATION TYPE: XR chest 1V portable DATE OF EXAM: 12/11/2020 COMPARISON: Chest x-ray 12/10/2020 HISTORY: Postop TECHNIQUE: Single frontal view of the chest is obtained. FINDINGS: Endotracheal tube and NG tube have been removed. Left-sided chest tube remains in place, r ight jugular central venous catheter shows the distal tip over the right pulmonary artery. Mediastina l drains are in place. Patchy densities present at the left lung base. No sizable pneumothorax. Cardi ac mediastinal silhouette shows a similar appearance. There are overlying artifacts. IMPRESSION: Probable basilar atelectasis, correlate to exclude pneumonia. Interval extubation.
[2020-12-11 10:55] LABS: Glucose,Whole Blood 118 mg/dL (75-99)
--- NOTE | 2020-12-11 11:20 | CONS ---
CONSULTATION This is a 70-year-old gentleman with a recent diagnosis of a CAD. He had a cardiac cath which revealed a triple-vessel and left main disease. Cardiac cath was performed on the by Dr. Tan. Yesterday, he underwent aortocoronary bypass surgery. He has underlying history of hypertension and hyperlipidemia. Surgery was performed by Dr. Stack yesterday. He had 4 grafts with a CASH to LAD, a free radial artery graft to the obtuse marginal, vein graft to the diagonal and distal RCA. The patient also had ligation of the left atrial appendage. He is doing well. He has been extubated, hemodynamically stable, not on any pressors. Appears to be progressing very well. PHYSICAL EXAMINATION: His blood pressure is 120/70. Pulse rate is about 90, sinus. HEENT is unremarkable. Fundus not examined. Neck is supple. No JVD. S1, S2 heard normally. No significant murmurs. Lungs reveal fair air entry. Decent effort on incentive spirometry. Abdomen is soft. Rest of physical exam is unchanged. RECOMMENDATION: From a cardiac standpoint, I am recommending that we give him a beta marcus and since the blood pressure log is somewhat higher, consider a small dose of amlodipine. I would also resume his atorvastatin. Continue incentive spirometry and pulmonary toilet and gradual increase in activity. The patient is progressing very well. This patient also has hypertension hyperlipidemia and no other significant comorbid conditions. He is not a smoker. MMODL / IJN: [id number] /
[2020-12-11 12:00] LABS: Glucose,Whole Blood 129 mg/dL (75-99)
[2020-12-11 12:30] LABS: Glucose,Whole Blood 110 mg/dL (75-99)
[2020-12-11 13:09] LABS: Glucose,Whole Blood 126 mg/dL (75-99)
--- NOTE | 2020-12-11 13:47 | P.CNPUL ---
History of Present Illness Consult date: 12/11/20 Requesting physician: Oneil Stack Reason for consult: other (Status post CABG, ICU management) Chief complaint: Status post CABG. History of present illness: This is a 70-year-old white male, history of coronary artery disease, patient underwent CABG 4 vessels, CASH to LAD, radial artery to obtuse marginal, saphenous vein graft to diagonal, saphenous vein graft to distal right coronary artery. This was done yesterday, postoperatively was asked to see the patient on consultation, and I was notified about his ventilator settings. Reviewed his chest x-ray. Adjusted his ventilator settings. And eventually extubated the patient around 19:30 p.m. I evaluated the patient today, patient is resting at a bedside chair, in no distress, he is on room air with O2 saturation is 94%, his cardiac output is 5.8 cardiac index is 2.4. He doing extremely well with incentive spirometry about 1000 mL. Chest tubes seem intact, and in proper positions, chest x-ray is showing minimal basilar atelectasis. His only complaint is postoperative chest pain controlled with pain medication. Denies shortness of breath. Actively using his incentive spirometer. He is in sinus rhythm, hemodynamically stable, not requiring any pressors or inotropes. Review of Systems Constitutional: Negative. HEENT: Negative. Cardiac: As noted in HPI. Pulmonary: Negative. GI: Negative. Genitourinary: Negative. Endocrine: Negative. [place] skeletal: Negative. Hematologic: Negative. Neurologic: Negative. Psychiatric: Negative. Skin: Negative. Past Medical History Past Medical History: Coronary Artery Disease (CAD), Chest Pain / Angina, Hyperlipidemia, Hypertension, Prostate Disorder Additional Past Medical History / Comment(s): Enlarged prostate; kidney stones History of Any Multi-Drug Resistant Organisms: None Reported Past Surgical History: Heart Catheterization Additional Past Surgical History / Comment(s): COLONOSCOPY; right extracorporeal shockwave lithotripsy Past Anesthesia/Blood Transfusion Reactions: No Reported Reaction Smoking Status: Never smoker - Past Family History Mother Family Medical History: Congestive Heart Failure (CHF), Coronary Artery Disease (CAD), Hypertension Father Family Medical History: Cancer, Coronary Artery Disease (CAD), Myocardial Infarction (MD) Additional Family Medical History / Comment(s): at 52 years old for myocardial infarction; Kidney cancer found on autopsy Sister(s) Family Medical History: Cancer Additional Family Medical History / Comment(s): Breast cancer Medications and Allergies Home Medications Medication Instructions Recorded Confirmed Type Aspirin [Adult Low Dose Aspirin EC] 81 mg PO DAILY 11/25/16 12/10/20 History Fluticasone Nasal [place] [Flonase 1 spray EA NOSTRIL DAILY PRN 11/25/16 12/10/20 History Nasal [place]] Losartan [Cozaar] 25 mg PO DAILY 11/25/16 12/10/20 History Multivitamins, Thera [Multivitamin] 1 tab PO DAILY 11/25/16 12/10/20 History Tamsulosin [Flomax] 0.4 mg PO DAILY 11/25/16 12/10/20 History Atorvastatin [Lipitor] 80 mg PO HS 12/03/20 12/10/20 History Carvedilol [Coreg] 6.25 mg PO BID 12/03/20 12/10/20 History Allergies Allergy/AdvReac Type Severity Reaction Status Date / Time No Known Allergies Allergy Verified 12/10/20 06:20 Physical Exam Vitals: Vital Signs Temp Pulse Resp BP Pulse Ox 12/11/20 11:30 92 18 96 12/11/20 11:14 89 12/11/20 11:00 91 12 95 12/11/20 10:30 95 21 96 12/11/20 10:00 92 16 95 12/11/20 09:30 94 13 95 12/11/20 09:00 89 20 94 L 12/11/20 08:30 92 21 94 L 12/11/20 08:00 98.6 F 93 25 H 119/106 95 12/11/20 07:36 91 12/11/20 07:30 86 16 102/52 100 12/11/20 07:26 89 12/11/20 07:00 92 22 112/53 94 L 12/11/20 06:30 92 15 95 12/11/20 06:00 94 19 91 L 12/11/20 05:30 93 18 106/62 94 L 12/11/20 05:00 95 21 94 L 12/11/20 04:30 91 13 93 L 12/11/20 04:00 99.5 F 89 15 92 L 12/11/20 03:30 89 15 102/63 93 L 12/11/20 03:00 92 12 91 L 12/11/20 02:30 103 H 15 93 L 12/11/20 02:00 99.7 F H 104 H 13 91 L 12/11/20 01:30 104 H 13 93 L 12/11/20 01:00 103 H 11 L 93 L 12/11/20 00:30 105 H 9 L 94 L 12/11/20 00:00 99.9 F H 105 H 15 94 L 12/10/20 23:30 105 H 18 97 12/10/20 23:00 106 H 15 96 12/10/20 22:30 105 H 15 94 L 12/10/20 22:00 102 H 15 95 12/10/20 21:30 103 H 16 95 12/10/20 21:00 105 H 17 95 12/10/20 20:30 102 H 17 95 12/10/20 20:18 105 H 12/10/20 20:00 98.6 F 102 H 20 100 12/10/20 19:40 98 12/10/20 19:30 98 22 99 12/10/20 19:00 98.2 F 93 16 102/63 100 12/10/20 18:30 98 16 100 12/10/20 18:00 97.9 F 106 H 16 100 12/10/20 17:30 103 H 12 100 12/10/20 17:00 97.0 F L 102 H 15 100 12/10/20 16:45 103 H 16 100 12/10/20 16:30 98 12 133/84 98 12/10/20 16:15 94 13 133/84 97 12/10/20 16:00 96 12 157/91 100 12/10/20 15:45 82 12 12/10/20 15:30 154 H 12 100 12/10/20 15:20 96.4 F L 71 12 100 Intake and Output 12/10/20 12/11/20 12/11/20 22:59 06:59 14:59 Intake Total 738.407 2386.45 338.532 Output Total 900 563 179 Balance 48.901 757.45 159.532 Intake: IV 859 943 289 ACETAMINOPHEN IV (For NPO 100 100 ) 1,000 mg In Empty Bag 1 bag @ 400 mls/hr IVPB Q6HR [facility] Rx#:[id number] Albumin Human 5% 250 ml 250 250 In Empty Bag 1 bag @ 250 mls/hr IVPB Q1HR PRN Rx#: [id number] CO/CI 80 60 20 Lactated Ringers 1,000 ml 350 400 130 @ 20 mls/hr IV .Q24H [facility] Rx#:[id number] ceFAZolin 2 gm In Sodium 50 50 Chloride 0.9% 50 ml @ 100 mls/hr IVPB Q8HR [facility] Rx# :[id number] ceFAZolin 2 gm In Sodium 100 Chloride 0.9% 50 ml @ Per Protocol 100 mls/hr IVPB ONCE ONE Rx#:[id number] pressure bag 29 83 39 Intake, IV Titration 89.901 17.45 49.532 Amount Clevidipine Butyrate 25 10.534 39.466 mg In Empty Bag 1 bag @ 1 MG/HR 2 mls/hr IV .Q24H [facility] Rx#:[id number] Dexmedetomidine/0.9% NaCl 5.776 (Pmx) 400 mcg In Empty Bag 1 bag @ Titrate IV . Q0M [facility] Rx#:[id number] Diltiazem 125 mg In 33.667 3 Sodium Chloride 0.9% 100 ml @ 5 MG/HR 5 mls/hr IV .Q24H [facility] Rx#:[id number] Insulin Regular 100 unit 9.850 14.45 10.066 In Sodium Chloride 0.9% 100 ml @ Per Protocol IV .Q0M [facility] Rx#:[id number] propofoL 1,000 mg In 30.074 Empty Bag 1 bag @ Titrate IV .Q0M [facility] Rx#: [id number] Oral 360 Output: Chest Tube Drainage 215 213 84 Left Left Pleural/ 10 23 14 Mediastinal Medistinal x2 205 190 70 Drainage 60 20 0 Left Wrist 60 20 0 Urine 625 330 95 Other: Voiding Method Indwelling Catheter Indwelling Catheter Indwelling Catheter Weight 112.5 kg 112.5 kg ABP, PAP, CO, CI - Last 8 Hours Arterial Blood Pressure 125/39 Arterial Blood Pressure 109/36 Arterial Blood Pressure 128/40 Arterial Blood Pressure 131/40 Arterial Blood Pressure 105/43 Arterial Blood Pressure 126/39 Arterial Blood Pressure 113/39 Arterial Blood Pressure 124/38 Arterial Blood Pressure 121/39 Arterial Blood Pressure 103/43 Arterial Blood Pressure 79/43 Arterial Blood Pressure 112/50 Pulmonary Artery Pressure 27/9 Pulmonary Artery Pressure 24/8 Pulmonary Artery Pressure 23/7 Pulmonary Artery Pressure 22/7 Pulmonary Artery Pressure 23/7 Pulmonary Artery Pressure 18/5 Pulmonary Artery Pressure 23/7 Pulmonary Artery Pressure 20/7 Pulmonary Artery Pressure 19/7 Cardiac Output 5.8 Cardiac Output 6.8 Cardiac Index 2.4 Cardiac Index 2.9 Physical Exam: Revealed 70-year-old white male in no distress, on room air. Head: Atraumatic, normocephalic. HEENT:[Neck is supple.] [No neck masses.] [No thyromegaly.] [No JVD.]EOMI, nonicteric. Right IJ Cordis and the Melvin-Dawn catheter noted Chest: [Clear throughout, no crackles, no rhonchi, no wheezes.]Mediastinal chest tube present to continuous wall suction, 190 mL of thin serosanguineous drainage overnight, 420 mL since surgery. Left pleural chest tubes present to continuous wall suction, 25 mL thin serosanguineous drainage overnight, 35 mL since surgery. No air leaks present. Cardiac Exam: [Normal S1 and S2, no S3 gallop, no murmur.]Sternum stable. A/P epicardial pacemaker wires present, connected to generator, VVI mode with backup rate 50 bpm. Palpable peripheral pulses bilaterally. Trace generalized edema present. No calf pain or tenderness noted. Heart hugger in place with patient demonstrating appropriate use. Antiembolism stockings, SCDs present. Right internal jugular Melvin/Cordis, right radial arterial line present. Last CO/CI 6.8/2.9 with CVP 9 and PA pressure 20/7 on no inotropes or pressors. Abdomen: [Soft, nontender, no megaly, no rebound, no guarding, normal bowel sounds.] Extremities: [No clubbing, no edema, no cyanosis.] Neurological Exam: [No focal neurologic deficit.] Alert and oriented 3. Psychiatric: Normal mood affect and normal mental status examination. Results - Laboratory Findings CBC and BMP: 12/11/20 04:00 12/11/20 04:00 ABG ABG pH 7.40 (7.35-7.45) 12/10/20 18:58 ABG pCO2 35 mmHg (35-45) 12/10/20 18:58 ABG pO2 179 mmHg (83-108) H 12/10/20 18:58 ABG O2 Saturation 99.8 % (94-97) H 12/10/20 18:58 PT/INR, D-dimer PT 11.6 sec (9.0-12.0) 12/10/20 15:28 INR 1.1 (<1.2) 12/10/20 15:28 Abnormal lab findings: Abnormal Labs 12/07/20 12/10/20 12/10/20 14:52 08:00 08:20 WBC RBC Hgb Hct Plt Count Neutrophils # Lymphocytes # Monocytes # ABG pH ABG pCO2 ABG pO2 >420 H >420 H ABG HCO3 ABG Total CO2 26 H 26 H ABG O2 Saturation 100.0 H 100.0 H ABG Hematocrit ABG Sodium ABG Potassium ABG Ionized Calcium ABG Glucose ABG Lactic Acid Hemoglobin Sodium Chloride Glucose POC Glucose (mg/dL) Calcium Magnesium Alkaline Phosphatase Total Protein Albumin Arterial Blood Potassium Arterial Blood Glucose Crossmatch See Detail 12/10/20 12/10/20 12/10/20 09:52 10:59 11:39 WBC RBC Hgb Hct Plt Count Neutrophils # Lymphocytes # Monocytes # ABG pH 7.30 L ABG pCO2 51 H ABG pO2 243 H 304 H 411 H ABG HCO3 ABG Total CO2 27 H 25 H 25 H ABG O2 Saturation 99.7 H 100.0 H 100.0 H ABG Hematocrit 27 L ABG Sodium 134 L ABG Potassium 5.6 H ABG Ionized Calcium 4.4 L 3.9 L ABG Glucose 112 H 112 H 196 H ABG Lactic Acid Hemoglobin 12.6 L 11.6 L 8.9 L Sodium Chloride Glucose POC Glucose (mg/dL) Calcium Magnesium Alkaline Phosphatase Total Protein Albumin Arterial Blood Potassium 5.6 H Arterial Blood Glucose 112 H 112 H 196 H Crossmatch 12/10/20 12/10/20 12/10/20 12:07 12:40 15:28 WBC 14.7 H RBC 3.27 L Hgb 10.6 L D Hct 31.5 L Plt Count 141 L Neutrophils # 12.0 H Lymphocytes # Monocytes # ABG pH 7.33 L 7.34 L ABG pCO2 47 H ABG pO2 362 H 363 H ABG HCO3 ABG Total CO2 25 H 27 H ABG O2 Saturation 100.0 H 100.0 H ABG Hematocrit 26 L 25 L ABG Sodium ABG Potassium 4.6 H ABG Ionized Calcium 4.0 L 4.0 L ABG Glucose 145 H 158 H ABG Lactic Acid 1.9 H Hemoglobin 8.6 L 8.1 L Sodium Chloride Glucose POC Glucose (mg/dL) Calcium Magnesium Alkaline Phosphatase Total Protein Albumin Arterial Blood Potassium 4.6 H Arterial Blood Glucose 145 H 158 H Crossmatch 12/10/20 12/10/20 12/10/20 15:28 15:48 16:06 WBC RBC Hgb Hct Plt Count Neutrophils # Lymphocytes # Monocytes # ABG pH ABG pCO2 ABG pO2 356 H ABG HCO3 26 H ABG Total CO2 27 H ABG O2 Saturation 100.0 H ABG Hematocrit ABG Sodium ABG Potassium ABG Ionized Calcium ABG Glucose ABG Lactic Acid Hemoglobin Sodium Chloride 108 H Glucose POC Glucose (mg/dL) 110 H Calcium 7.0 L Magnesium 2.7 H Alkaline Phosphatase 26 L Total Protein 4.5 L Albumin 2.5 L Arterial Blood Potassium Arterial Blood Glucose Crossmatch 12/10/20 12/10/20 12/10/20 16:59 18:07 18:11 WBC 18.8 H RBC 3.59 L Hgb 12.0 L Hct 34.2 L Plt Count Neutrophils # 15.6 H Lymphocytes # Monocytes # 1.5 H ABG pH ABG pCO2 ABG pO2 ABG HCO3 ABG Total CO2 ABG O2 Saturation ABG Hematocrit ABG Sodium ABG Potassium ABG Ionized Calcium ABG Glucose ABG Lactic Acid Hemoglobin Sodium Chloride Glucose POC Glucose (mg/dL) 145 H 147 H Calcium Magnesium Alkaline Phosphatase Total Protein Albumin Arterial Blood Potassium Arterial Blood Glucose Crossmatch 12/10/20 12/10/20 12/10/20 18:58 19:04 20:00 WBC 17.5 H RBC 3.45 L Hgb 11.4 L Hct 32.9 L Plt Count Neutrophils # 15.2 H Lymphocytes # 0.9 L Monocytes # 1.2 H ABG pH ABG pCO2 ABG pO2 179 H ABG HCO3 ABG Total CO2 ABG O2 Saturation 99.8 H ABG Hematocrit ABG Sodium ABG Potassium ABG Ionized Calcium ABG Glucose ABG Lactic Acid Hemoglobin Sodium Chloride Glucose POC Glucose (mg/dL) 148 H Calcium Magnesium Alkaline Phosphatase Total Protein Albumin Arterial Blood Potassium Arterial Blood Glucose Crossmatch 12/10/20 12/10/20 12/10/20 20:03 21:11 21:55 WBC RBC Hgb Hct Plt Count Neutrophils # Lymphocytes # Monocytes # ABG pH ABG pCO2 ABG pO2 ABG HCO3 ABG Total CO2 ABG O2 Saturation ABG Hematocrit ABG Sodium ABG Potassium ABG Ionized Calcium ABG Glucose ABG Lactic Acid Hemoglobin Sodium Chloride Glucose POC Glucose (mg/dL) 135 H 133 H 133 H Calcium Magnesium Alkaline Phosphatase Total Protein Albumin Arterial Blood Potassium Arterial Blood Glucose Crossmatch 12/10/20 12/11/20 12/11/20 23:06 00:14 02:00 WBC RBC Hgb Hct Plt Count Neutrophils # Lymphocytes # Monocytes # ABG pH ABG pCO2 ABG pO2 ABG HCO3 ABG Total CO2 ABG O2 Saturation ABG Hematocrit ABG Sodium ABG Potassium ABG Ionized Calcium ABG Glucose ABG Lactic Acid Hemoglobin Sodium Chloride Glucose POC Glucose (mg/dL) 129 H 131 H 134 H Calcium Magnesium Alkaline Phosphatase Total Protein Albumin Arterial Blood Potassium Arterial Blood Glucose Crossmatch 12/11/20 12/11/20 12/11/20 03:06 04:00 04:00 WBC 12.4 H RBC 3.06 L Hgb 10.1 L Hct 29.2 L Plt Count Neutrophils # 10.5 H Lymphocytes # 0.8 L Monocytes # ABG pH ABG pCO2 ABG pO2 ABG HCO3 ABG Total CO2 ABG O2 Saturation ABG Hematocrit ABG Sodium ABG Potassium ABG Ionized Calcium ABG Glucose ABG Lactic Acid Hemoglobin Sodium 135 L Chloride Glucose 118 H POC Glucose (mg/dL) 137 H Calcium 7.4 L Magnesium Alkaline Phosphatase 32 L Total Protein 5.0 L Albumin 2.9 L Arterial Blood Potassium Arterial Blood Glucose Crossmatch 12/11/20 12/11/20 12/11/20 04:08 06:23 07:08 WBC RBC Hgb Hct Plt Count Neutrophils # Lymphocytes # Monocytes # ABG pH ABG pCO2 ABG pO2 ABG HCO3 ABG Total CO2 ABG O2 Saturation ABG Hematocrit ABG Sodium ABG Potassium ABG Ionized Calcium ABG Glucose ABG Lactic Acid Hemoglobin Sodium Chloride Glucose POC Glucose (mg/dL) 130 H 135 H 133 H Calcium Magnesium Alkaline Phosphatase Total Protein Albumin Arterial Blood Potassium Arterial Blood Glucose Crossmatch 12/11/20 12/11/20 12/11/20 08:02 08:59 10:53 WBC RBC Hgb Hct Plt Count Neutrophils # Lymphocytes # Monocytes # ABG pH ABG pCO2 ABG pO2 ABG HCO3 ABG Total CO2 ABG O2 Saturation ABG Hematocrit ABG Sodium ABG Potassium ABG Ionized Calcium ABG Glucose ABG Lactic Acid Hemoglobin Sodium Chloride Glucose POC Glucose (mg/dL) 121 H 100 H 118 H Calcium Magnesium Alkaline Phosphatase Total Protein Albumin Arterial Blood Potassium Arterial Blood Glucose Crossmatch 12/11/20 12/11/20 12/11/20 11:59 12:29 13:07 WBC RBC Hgb Hct Plt Count Neutrophils # Lymphocytes # Monocytes # ABG pH ABG pCO2 ABG pO2 ABG HCO3 ABG Total CO2 ABG O2 Saturation ABG Hematocrit ABG Sodium ABG Potassium ABG Ionized Calcium ABG Glucose ABG Lactic Acid Hemoglobin Sodium Chloride Glucose POC Glucose (mg/dL) 129 H 110 H 126 H Calcium Magnesium Alkaline Phosphatase Total Protein Albumin Arterial Blood Potassium Arterial Blood Glucose Crossmatch - Diagnostic Findings Chest x-ray: image reviewed (As noted in HPI.) Assessment and Plan Assessment: Impression: Coronary artery disease, status post four-vessel CABG postoperative day #1. Benign essential hypertension. Dyslipidemia. Lifelong nonsmoker. History of bilateral internal carotid artery disease. Strong family history of premature coronary artery disease. Postoperative atelectasis, expected. Recommendation: Continue incentive spirometry. Early ambulation. Continue aspirin statins and Plavix beta blockers. Discontinue unnecessary catheters and lines. Monitor daily x-rays. Continue GI and DVT prophylaxis. Continue pain control management. We'll continue to follow. Time with Patient: Greater than 30
[2020-12-11 14:07] LABS: Glucose,Whole Blood 142 mg/dL (75-99)
[2020-12-11 15:00] LABS: Glucose,Whole Blood 139 mg/dL (75-99)
[2020-12-11] MEDS: CLEVIDIPINE BUTYRATE 25 MG in EMPTY BAG 1 BAG IV SCH (16:05)
[2020-12-11 16:08] LABS: Glucose,Whole Blood 138 mg/dL (75-99)
[2020-12-11 17:28] LABS: Glucose,Whole Blood 127 mg/dL (75-99)
[2020-12-11 18:19] LABS: Glucose,Whole Blood 140 mg/dL (75-99)
[2020-12-11 19:09] LABS: Glucose,Whole Blood 134 mg/dL (75-99)
[2020-12-11] MEDS: DEXTROSE 5% IN WATER 100 ML with AMIODARONE 150 MG IV PRN (19:18)
[2020-12-11 20:12] LABS: Glucose,Whole Blood 158 mg/dL (75-99)
[2020-12-11 22:02] LABS: Glucose,Whole Blood 158 mg/dL (75-99)
[2020-12-11] MEDS: BENZOCAINE/MENTHOL LOZENG 1 EACH LOZENGE MUCOUS MEM PRN (22:24)
[2020-12-11] MEDS: SENNOSIDES-DOCUSATE SODIUM 1 EACH TAB PO SCH (22:24)
--- NOTE | 2020-12-11 22:48 | PN ---
PROGRESS NOTE Status post CABG surgery 4 vessels. Sitting up in the chair, was getting dizzy standing up. Incentive spirometry. Borderline hypotension when he stands up. He was given some fluids. His labs were checked by Cardiology. Temperature 99.5, pulse 90s, respiratory rate 18 to 22, oxygenation 94%, blood pressure 112/53. CARDIOVASCULAR: S1, S2. LUNGS: Chest tubes. HEMATOLOGY: Negative Homans. PSYCH: Fair mood and affect. White count 12.4, hemoglobin is 10.1. Sodium 135, potassium 4.6. Labs reviewed. ASSESSMENT: 1. Coronary artery bypass grafting surgery. 2. Left main disease. 3. Unstable angina. 4. Status post 4-vessel coronary artery bypass grafting. 5. Hypertension. 6. Dyslipidemia. 7. Benign prostatic hypertrophy. 8. Carotid stenosis on the right, 65% to 70%; 75% on the left. 9. Asymptomatic . Beta blockers, nitroglycerin has been discontinued as well as Cardizem. Some fluid boluses p.r.n. Sugars are in the low 100s. No insulin has been needed. Probably discontinue the line as best we can and possibly take out chest tube tomorrow. Continue with postoperative rehab. MMODL / IJN: [id number] /
[2020-12-11 23:09] LABS: Glucose,Whole Blood 144 mg/dL (75-99)
[2020-12-12 00:21] LABS: Glucose,Whole Blood 142 mg/dL (75-99)
[2020-12-12] MEDS: HEPARIN SODIUM,PORCINE 5,000 UNIT/ML 1 ML VIAL SQ SCH ×3 (00:31→15:35)
[2020-12-12] MEDS: KETOROLAC 15 MG/ML 1 ML VIAL IVP SCH ×4 (00:31→17:31)
[2020-12-12] MEDS: DILTIAZEM ORAL 30 MG TAB PO SCH ×4 (00:32→17:32)
[2020-12-12] MEDS: HYDROcodone/APAP 5-325MG 1 EACH TAB PO PRN ×2 (00:32→05:14)
[2020-12-12] MEDS: DEXTROSE 5% IN WATER 100 ML with AMIODARONE 150 MG IV PRN ×3 (01:33→04:18)
[2020-12-12 02:05] LABS: Glucose,Whole Blood 142 mg/dL (75-99)
[2020-12-12 03:22] LABS: Glucose,Whole Blood 159 mg/dL (75-99)
[2020-12-12 04:30] LABS: Glucose,Whole Blood 165 mg/dL (75-99)
[2020-12-12 04:55] LABS: Basophils % (A) 0 %; Eosinophils % (A) 0 %; HCT 23.6 % (39.0-53.0); Lymphocytes # (A) 1.4 k/uL (1.0-4.8); Lymphocytes % (A) 10 %; MCHC 34.5 g/dL (31.0-37.0); MCV 95.8 fL (80.0-100.0); Mean Platelet Volume 7.7; Monocytes # (A) 1.2 k/uL (0-1.0); Monocytes % (A) 9 %; Neutrophils # (A) 10.5 k/uL (1.3-7.7); Neutrophils % (A) 79 %; Platelet Count 130 k/uL (150-450); RBC 2.46 m/uL (4.30-5.90); RDW 11.9 % (11.5-15.5); WBC 13.3 k/uL (3.8-10.6)
[2020-12-12 04:57] LABS: HGB 8.1 gm/dL (13.0-17.5)
[2020-12-12 04:59] LABS: Ionized Calcium 4.6 mg/dL (4.5-5.3)
[2020-12-12 05:10] LABS: Albumin 2.9 g/dL (3.5-5.0); Calcium 7.6 mg/dL (8.4-10.2); Potassium 4.2 mmol/L (3.5-5.1); Total Bilirubin 0.6 mg/dL (0.2-1.3); Total Protein 5.1 g/dL (6.3-8.2)
[2020-12-12] MEDS: BENZOCAINE/MENTHOL LOZENG 1 EACH LOZENGE MUCOUS MEM PRN (05:15)
[2020-12-12 06:28] LABS: Glucose,Whole Blood 131 mg/dL (75-99)
[2020-12-12] MEDS: PANTOPRAZOLE 40 MG TABLET PO SCH (06:55)
[2020-12-12] MEDS: IPRATROPIUM-ALBUTEROL 3 ML NEB INHALATION SCH ×4 (07:37→19:05)
[2020-12-12 08:04] LABS: Glucose,Whole Blood 161 mg/dL (75-99)
--- NOTE | 2020-12-12 08:12 | XR ---
EXAMINATION TYPE: XR chest 1V portable DATE OF EXAM: 12/12/2020 COMPARISON: Chest x-ray 12/11/2020 HISTORY: Chest tube, post cardiac surgery TECHNIQUE: Single frontal view of the chest is obtained. FINDINGS: Left-sided chest tube is in place, right jugular central venous catheter has been removed. No sizable pneumothorax or pleural effusion. Lung volumes are low, patient is post median sternotomy and left atrial appendage clipping placement. Cardiac mediastinal silhouette is stable. Patchy basil ar density is again noted. IMPRESSION: Interval central venous catheter removal, central venous sheath remains in place. Probab le atelectatic changes, correlate to exclude pneumonia.
[2020-12-12] MEDS ORDERED: MD COMMUNICATION TO PHARMACY 1 EACH MISC PO PRN (08:59)
--- NOTE | 2020-12-12 09:05 | P.PN ---
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 Previous medical history of hypertension, hyperlipidemia, enlarged prostate, never smoker, bilateral internal carotid artery stenosis, and family history of premature coronary artery disease POD #2 coronary artery bypass grafting 4 vessels, left internal mammary artery to the left anterior descending artery, radial artery to the obtuse marginal artery, reverse saphenous vein graft to the diagonal artery, reverse saphenous vein graft to the distal right coronary artery, endoscopic harvesting of the left greater saphenous vein, endoscopic harvest of the left radial artery, epi- aortic ultrasound, intraoperative transesophageal echocardiogram, ligation of the left atrial appendage using a 35 mm AtriCure clip. Atrial fibrillation, known competition of open-heart surgery The patient's currently sitting up in a recliner in the intensive care unit in no acute distress. Does complain of postoperative chest pain controlled on current medication regimen, denies shortness of breath. Actively using incentive spirometer. His only complaint is that he is very tired. He went into atrial fibrillation yesterday, initiated on IV amiodarone, remains in atrial fibrillation but with controlled rate, hemodynamically stable today, was a bit orthostatic yesterday and received IV fluids. Mediastinal, left pleural chest tubes, right internal jugular Cordis, right radial arterial line all present. updated yesterday by phone twice. Objective - Vital Signs Vital signs: Vital Signs Temp 98.6 F 12/12/20 04:00 Pulse 78 12/12/20 07:47 Resp 21 12/12/20 07:00 BP 102/73 12/12/20 07:00 Pulse Ox 93 L 12/12/20 07:00 Intake & Output 12/11/20 12/12/20 12/12/20 18:59 06:59 18:59 Intake Total 1128.478 2200.108 39.125 Output Total 543 600 20 Balance 477.532 563.108 19.125 Weight 112.5 kg 116.8 kg Intake: IV 971 464 36 Albumin Human 5% 250 ml 500 In Empty Bag 1 bag @ 250 mls/hr IVPB Q1HR PRN Rx#: [id number] CO/CI 20 Lactated Ringers 1,000 ml 270 350 30 @ 20 mls/hr IV .Q24H [facility] Rx#:[id number] ceFAZolin 2 gm In Sodium 100 Chloride 0.9% 50 ml @ Per Protocol 100 mls/hr IVPB ONCE ONE Rx#:[id number] pressure bag 81 114 6 Intake, IV Titration 49.532 39.108 3.125 Amount Clevidipine Butyrate 25 39.466 mg In Empty Bag 1 bag @ 1 MG/HR 2 mls/hr IV .Q24H [facility] Rx#:[id number] Insulin Regular 100 unit 10.066 39.108 3.125 In Sodium Chloride 0.9% 100 ml @ Per Protocol IV .Q0M [facility] Rx#:[id number] Oral 660 Output: Chest Tube Drainage 262 230 Left Left Pleural/ 72 90 Mediastinal Medistinal x2 190 140 Drainage 0 Left Wrist 0 Urine 281 370 20 Other: Voiding Method Indwelling Catheter Indwelling Catheter ABP, PAP, CO, CI - Last Documented Arterial Blood Pressure 110/47 Pulmonary Artery Pressure 27/9 Cardiac Output 5.8 Cardiac Index 2.4 - Constitutional General appearance: Present: cooperative, no acute distress - Respiratory Details: Lungs sounds diminished bilaterally. Respirations even, nonlabored. Currently on 2 L nasal cannula with oxygen saturation 100%. Able to achieve 1000 mL on his incentive spirometry. Weak cough. Mediastinal chest tube present to continuous wall suction, 80 mL of thin serosanguineous drainage overnight, 300 mL in the last 24 hours. Left pleural chest tubes present to continuous wall suction, 60 mL thin serosanguineous drainage overnight, 110 mL in the last 24 hours. No air leaks present. - Cardiovascular Details: S1, S2 present. Irregular rate and rhythm, controlled atrial fibrillation on telemetry. Sternum stable. A/V epicardial pacemaker wires present, grounded. Palpable peripheral pulses bilaterally. Trace generalized edema present. No calf pain or tenderness noted. Heart hugger in place with patient demonstrating appropriate use. Antiembolism stockings, SCDs present. Right internal jugular Cordis, right radial arterial line present. - Gastrointestinal Gastrointestinal Comment(s): Abdomen soft, nontender, nondistended. Active bowel sounds present 4 quadrants. Tolerating clear liquids. Positive flatus, does complain of some nausea but better than yesterday - Genitourinary Genitourinary Comment(s): Moreland discontinued this morning. Urine output overnight 25-35 mL/h - Integumentary Integumentary Comment(s): Skin is warm and dry with evidence of good perfusion. Anterior chest incision well approximated and covered with dry intact dressing. Left lower extremity EVH site well approximated without redness or drainage. Left radial artery harvest site well approximated without redness or drainage. 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 - Neurologic Neurologic: Present: CNII-XII intact - Musculoskeletal Musculoskeletal: Present: gait normal, strength equal bilaterally - Psychiatric Psychiatric: Present: A&O x's 3, appropriate affect, intact judgment & insight - Allied health notes Allied health notes reviewed: nursing - Labs CBC & Chem 7: 12/12/20 04:20 12/12/20 04:20 Labs: Abnormal Lab Results - Last 24 Hours (Table) 12/11/20 12/11/20 12/11/20 Range/Units 08:59 10:53 11:59 WBC (3.8-10.6) k/uL RBC (4.30-5.90) m/uL Hgb (13.0-17.5) gm/dL Hct (39.0-53.0) % Plt Count (150-450) k/uL Neutrophils # (1.3-7.7) k/uL Monocytes # (0-1.0) k/uL Sodium (137-145) mmol/L BUN (9-20) mg/dL Glucose (74-99) mg/dL POC Glucose (mg/dL) 100 H 118 H 129 H (75-99) mg/dL Calcium (8.4-10.2) mg/dL Alkaline Phosphatase (38-126) U/L Total Protein (6.3-8.2) g/dL Albumin (3.5-5.0) g/dL 12/11/20 12/11/20 12/11/20 Range/Units 12:29 13:07 14:05 WBC (3.8-10.6) k/uL RBC (4.30-5.90) m/uL Hgb (13.0-17.5) gm/dL Hct (39.0-53.0) % Plt Count (150-450) k/uL Neutrophils # (1.3-7.7) k/uL Monocytes # (0-1.0) k/uL Sodium (137-145) mmol/L BUN (9-20) mg/dL Glucose (74-99) mg/dL POC Glucose (mg/dL) 110 H 126 H 142 H (75-99) mg/dL Calcium (8.4-10.2) mg/dL Alkaline Phosphatase (38-126) U/L Total Protein (6.3-8.2) g/dL Albumin (3.5-5.0) g/dL 12/11/20 12/11/20 12/11/20 Range/Units 14:59 16:06 17:26 WBC (3.8-10.6) k/uL RBC (4.30-5.90) m/uL Hgb (13.0-17.5) gm/dL Hct (39.0-53.0) % Plt Count (150-450) k/uL Neutrophils # (1.3-7.7) k/uL Monocytes # (0-1.0) k/uL Sodium (137-145) mmol/L BUN (9-20) mg/dL Glucose (74-99) mg/dL POC Glucose (mg/dL) 139 H 138 H 127 H (75-99) mg/dL Calcium (8.4-10.2) mg/dL Alkaline Phosphatase (38-126) U/L Total Protein (6.3-8.2) g/dL Albumin (3.5-5.0) g/dL 12/11/20 12/11/20 12/11/20 Range/Units 18:18 19:08 20:10 WBC (3.8-10.6) k/uL RBC (4.30-5.90) m/uL Hgb (13.0-17.5) gm/dL Hct (39.0-53.0) % Plt Count (150-450) k/uL Neutrophils # (1.3-7.7) k/uL Monocytes # (0-1.0) k/uL Sodium (137-145) mmol/L BUN (9-20) mg/dL Glucose (74-99) mg/dL POC Glucose (mg/dL) 140 H 134 H 158 H (75-99) mg/dL Calcium (8.4-10.2) mg/dL Alkaline Phosphatase (38-126) U/L Total Protein (6.3-8.2) g/dL Albumin (3.5-5.0) g/dL 12/11/20 12/11/20 12/12/20 Range/Units 22:01 23:07 00:19 WBC (3.8-10.6) k/uL RBC (4.30-5.90) m/uL Hgb (13.0-17.5) gm/dL Hct (39.0-53.0) % Plt Count (150-450) k/uL Neutrophils # (1.3-7.7) k/uL Monocytes # (0-1.0) k/uL Sodium (137-145) mmol/L BUN (9-20) mg/dL Glucose (74-99) mg/dL POC Glucose (mg/dL) 158 H 144 H 142 H (75-99) mg/dL Calcium (8.4-10.2) mg/dL Alkaline Phosphatase (38-126) U/L Total Protein (6.3-8.2) g/dL Albumin (3.5-5.0) g/dL 12/12/20 12/12/20 12/12/20 Range/Units 02:04 03:20 04:20 WBC 13.3 H (3.8-10.6) k/uL RBC 2.46 L (4.30-5.90) m/uL Hgb 8.1 L D (13.0-17.5) gm/dL Hct 23.6 L (39.0-53.0) % Plt Count 130 L (150-450) k/uL Neutrophils # 10.5 H (1.3-7.7) k/uL Monocytes # 1.2 H (0-1.0) k/uL Sodium (137-145) mmol/L BUN (9-20) mg/dL Glucose (74-99) mg/dL POC Glucose (mg/dL) 142 H 159 H (75-99) mg/dL Calcium (8.4-10.2) mg/dL Alkaline Phosphatase (38-126) U/L Total Protein (6.3-8.2) g/dL Albumin (3.5-5.0) g/dL 12/12/20 12/12/20 12/12/20 Range/Units 04:20 04:28 06:26 WBC (3.8-10.6) k/uL RBC (4.30-5.90) m/uL Hgb (13.0-17.5) gm/dL Hct (39.0-53.0) % Plt Count (150-450) k/uL Neutrophils # (1.3-7.7) k/uL Monocytes # (0-1.0) k/uL Sodium 133 L (137-145) mmol/L BUN 29 H (9-20) mg/dL Glucose 150 H (74-99) mg/dL POC Glucose (mg/dL) 165 H 131 H (75-99) mg/dL Calcium 7.6 L (8.4-10.2) mg/dL Alkaline Phosphatase 34 L (38-126) U/L Total Protein 5.1 L (6.3-8.2) g/dL Albumin 2.9 L (3.5-5.0) g/dL 12/12/20 Range/Units 08:01 WBC (3.8-10.6) k/uL RBC (4.30-5.90) m/uL Hgb (13.0-17.5) gm/dL Hct (39.0-53.0) % Plt Count (150-450) k/uL Neutrophils # (1.3-7.7) k/uL Monocytes # (0-1.0) k/uL Sodium (137-145) mmol/L BUN (9-20) mg/dL Glucose (74-99) mg/dL POC Glucose (mg/dL) 161 H (75-99) mg/dL Calcium (8.4-10.2) mg/dL Alkaline Phosphatase (38-126) U/L Total Protein (6.3-8.2) g/dL Albumin (3.5-5.0) g/dL - Imaging and Cardiology Chest x-ray: report reviewed, image reviewed Assessment and Plan Assessment: 1. Coronary artery disease with left main disease, unstable angina, status post four-vessel CABG 2. Hypertension 3. Hyperlipidemia, treated, cholesterol 95, LDL 47 4. Enlarged prostate, treated 5. Never smoker, preoperative FEV1 91% of predicted 6. Bilateral internal carotid artery stenosis, 65-70% on the right and near 75% on the left per angiography, asymptomatic 7. Family history of premature coronary artery disease 8. Atrial fibrillation, known complication of open-heart surgery, status post left atrial appendage ligation Plan: 1. Continue aspirin, statin, Plavix, beta marcus therapy. Will increase beta marcus therapy as tolerated. 2. Continue oral Cardizem for radial artery spasm. Do not discontinue CCB without discussing with cardio thoracic surgery 3. Continue amiodarone, will transition to oral amiodarone. No anticoagulation at this time 4. Encourage incentive spirometry use 10 times every hour while awake. Bronchodilators per pulmonology 5. Increase activity, ambulate as tolerated. PT/OT/cardiac rehab consulted 6. Will monitor daily labs and x-rays. Electrolyte replacement per protocol. No Lasix 7. GI/DVT prophylaxis 8. Pain control with current medication regimen. 9. Insulin management per primary care service. Patient is not diabetic, preoperative A1c 5.7% 10. Likely will discontinue cordis, establish peripheral IV 10. Discontinue mediastinal chest tube, keep left pleural chest tube for another 24 hours 11. Discontinue Moreland catheter, may bladder scan and straight cath for greater than 300 mL residual 12. Strict accurate intake and output. Daily weights. 13. More recommendations to follow Time with Patient: Greater than 30
[2020-12-12] MEDS: METOPROLOL TARTRATE 12.5 MG TAB PO SCH ×2 (09:15→22:41)
[2020-12-12] MEDS: ASPIRIN 325 MG TAB PO SCH (09:16)
[2020-12-12] MEDS: CLOPIDOGREL 75 MG TAB PO SCH (09:16)
[2020-12-12] MEDS: ATORVASTATIN 40 MG TAB PO SCH (09:16)
[2020-12-12] MEDS: TAMSULOSIN 0.4 MG CAP.ER.24H PO SCH (09:16)
[2020-12-12] MEDS: MULTIVITAMINS, THERA 1 EACH TAB PO SCH (09:16)
[2020-12-12] MEDS: AMIODARONE 200 MG TAB PO SCH ×2 (09:19→20:57)
--- NOTE | 2020-12-12 09:26 | P.PN ---
Subjective Progress Note Date: 12/12/20 Principal diagnosis: Coronary artery disease and status post CABG This is a pleasant 70-year-old gentleman who was seen in the office recently for chest discomfort and underwent myocardial perfusion imaging stress test and that came in to be abnormal. Subsequently he underwent a heart catheterization and that revealed severe triple-vessel CAD and left main disease as well. S ubsequently the patient was referred for surgery and he underwent CABG. He was seen this morning. He is hemodynamically stable that he went into atrial fibrillation was controlled heart rate. Currently he is on amiodarone IV which we are going to switch him to amiodarone by mouth. He is on dual antiplatelet therapy along with high intensity statin. He is also on beta marcus with metoprolol. Objective - Vital Signs Vital signs: Vital Signs Temp 98.6 F 12/12/20 04:00 Pulse 80 12/12/20 09:00 Resp 16 12/12/20 09:00 BP 108/60 12/12/20 09:00 Pulse Ox 92 L 12/12/20 09:00 Intake & Output 12/11/20 12/12/20 12/12/20 18:59 06:59 18:59 Intake Total 9798.697 5705.108 75.125 Output Total 543 600 20 Balance 477.532 563.108 55.125 Weight 112.5 kg 116.8 kg Intake: IV 971 464 72 Albumin Human 5% 250 ml 500 In Empty Bag 1 bag @ 250 mls/hr IVPB Q1HR PRN Rx#: [id number] CO/CI 20 Lactated Ringers 1,000 ml 270 350 60 @ 20 mls/hr IV .Q24H [facility] Rx#:[id number] ceFAZolin 2 gm In Sodium 100 Chloride 0.9% 50 ml @ Per Protocol 100 mls/hr IVPB ONCE ONE Rx#:[id number] pressure bag 81 114 12 Intake, IV Titration 49.532 39.108 3.125 Amount Clevidipine Butyrate 25 39.466 mg In Empty Bag 1 bag @ 1 MG/HR 2 mls/hr IV .Q24H [facility] Rx#:[id number] Insulin Regular 100 unit 10.066 39.108 3.125 In Sodium Chloride 0.9% 100 ml @ Per Protocol IV .Q0M [facility] Rx#:[id number] Oral 660 Output: Chest Tube Drainage 262 230 Left Left Pleural/ 72 90 Mediastinal Medistinal x2 190 140 Drainage 0 Left Wrist 0 Urine 281 370 20 Other: Voiding Method Indwelling Catheter Indwelling Catheter ABP, PAP, CO, CI - Last Documented Arterial Blood Pressure 110/47 Pulmonary Artery Pressure 27/9 Cardiac Output 5.8 Cardiac Index 2.4 - Constitutional General appearance: Present: no acute distress - Respiratory Respiratory: bilateral: diminished - Cardiovascular Rhythm: irregularly irregular Heart sounds: normal: S1, S2 - Labs CBC & Chem 7: 12/12/20 04:20 12/12/20 04:20 Labs: Abnormal Lab Results - Last 24 Hours (Table) 12/11/20 12/11/20 12/11/20 Range/Units 10:53 11:59 12:29 WBC (3.8-10.6) k/uL RBC (4.30-5.90) m/uL Hgb (13.0-17.5) gm/dL Hct (39.0-53.0) % Plt Count (150-450) k/uL Neutrophils # (1.3-7.7) k/uL Monocytes # (0-1.0) k/uL Sodium (137-145) mmol/L BUN (9-20) mg/dL Glucose (74-99) mg/dL POC Glucose (mg/dL) 118 H 129 H 110 H (75-99) mg/dL Calcium (8.4-10.2) mg/dL Alkaline Phosphatase (38-126) U/L Total Protein (6.3-8.2) g/dL Albumin (3.5-5.0) g/dL 12/11/20 12/11/20 12/11/20 Range/Units 13:07 14:05 14:59 WBC (3.8-10.6) k/uL RBC (4.30-5.90) m/uL Hgb (13.0-17.5) gm/dL Hct (39.0-53.0) % Plt Count (150-450) k/uL Neutrophils # (1.3-7.7) k/uL Monocytes # (0-1.0) k/uL Sodium (137-145) mmol/L BUN (9-20) mg/dL Glucose (74-99) mg/dL POC Glucose (mg/dL) 126 H 142 H 139 H (75-99) mg/dL Calcium (8.4-10.2) mg/dL Alkaline Phosphatase (38-126) U/L Total Protein (6.3-8.2) g/dL Albumin (3.5-5.0) g/dL 12/11/20 12/11/20 12/11/20 Range/Units 16:06 17:26 18:18 WBC (3.8-10.6) k/uL RBC (4.30-5.90) m/uL Hgb (13.0-17.5) gm/dL Hct (39.0-53.0) % Plt Count (150-450) k/uL Neutrophils # (1.3-7.7) k/uL Monocytes # (0-1.0) k/uL Sodium (137-145) mmol/L BUN (9-20) mg/dL Glucose (74-99) mg/dL POC Glucose (mg/dL) 138 H 127 H 140 H (75-99) mg/dL Calcium (8.4-10.2) mg/dL Alkaline Phosphatase (38-126) U/L Total Protein (6.3-8.2) g/dL Albumin (3.5-5.0) g/dL 12/11/20 12/11/20 12/11/20 Range/Units 19:08 20:10 22:01 WBC (3.8-10.6) k/uL RBC (4.30-5.90) m/uL Hgb (13.0-17.5) gm/dL Hct (39.0-53.0) % Plt Count (150-450) k/uL Neutrophils # (1.3-7.7) k/uL Monocytes # (0-1.0) k/uL Sodium (137-145) mmol/L BUN (9-20) mg/dL Glucose (74-99) mg/dL POC Glucose (mg/dL) 134 H 158 H 158 H (75-99) mg/dL Calcium (8.4-10.2) mg/dL Alkaline Phosphatase (38-126) U/L Total Protein (6.3-8.2) g/dL Albumin (3.5-5.0) g/dL 12/11/20 12/12/20 12/12/20 Range/Units 23:07 00:19 02:04 WBC (3.8-10.6) k/uL RBC (4.30-5.90) m/uL Hgb (13.0-17.5) gm/dL Hct (39.0-53.0) % Plt Count (150-450) k/uL Neutrophils # (1.3-7.7) k/uL Monocytes # (0-1.0) k/uL Sodium (137-145) mmol/L BUN (9-20) mg/dL Glucose (74-99) mg/dL POC Glucose (mg/dL) 144 H 142 H 142 H (75-99) mg/dL Calcium (8.4-10.2) mg/dL Alkaline Phosphatase (38-126) U/L Total Protein (6.3-8.2) g/dL Albumin (3.5-5.0) g/dL 12/12/20 12/12/20 12/12/20 Range/Units 03:20 04:20 04:20 WBC 13.3 H (3.8-10.6) k/uL RBC 2.46 L (4.30-5.90) m/uL Hgb 8.1 L D (13.0-17.5) gm/dL Hct 23.6 L (39.0-53.0) % Plt Count 130 L (150-450) k/uL Neutrophils # 10.5 H (1.3-7.7) k/uL Monocytes # 1.2 H (0-1.0) k/uL Sodium 133 L (137-145) mmol/L BUN 29 H (9-20) mg/dL Glucose 150 H (74-99) mg/dL POC Glucose (mg/dL) 159 H (75-99) mg/dL Calcium 7.6 L (8.4-10.2) mg/dL Alkaline Phosphatase 34 L (38-126) U/L Total Protein 5.1 L (6.3-8.2) g/dL Albumin 2.9 L (3.5-5.0) g/dL 12/12/20 12/12/20 12/12/20 Range/Units 04:28 06:26 08:01 WBC (3.8-10.6) k/uL RBC (4.30-5.90) m/uL Hgb (13.0-17.5) gm/dL Hct (39.0-53.0) % Plt Count (150-450) k/uL Neutrophils # (1.3-7.7) k/uL Monocytes # (0-1.0) k/uL Sodium (137-145) mmol/L BUN (9-20) mg/dL Glucose (74-99) mg/dL POC Glucose (mg/dL) 165 H 131 H 161 H (75-99) mg/dL Calcium (8.4-10.2) mg/dL Alkaline Phosphatase (38-126) U/L Total Protein (6.3-8.2) g/dL Albumin (3.5-5.0) g/dL Assessment and Plan Assessment: Assessment #1 severe triple-vessel CAD and status post CABG #2 preserved left ventricular systolic function #3 hypertension #4 dyslipidemia Plan #1 continue dual antiplatelet therapy #2 consider increasing the dose of Lipitor to 80 mg by mouth daily at bedtime #3 consider switching the patient from amiodarone IV to amiodarone by mouth #4 monitor the heart rate #5 follow-up with the patient
[2020-12-12 09:38] LABS: Glucose,Whole Blood 138 mg/dL (75-99)
[2020-12-12 10:42] LABS: Glucose,Whole Blood 134 mg/dL (75-99)
[2020-12-12 12:07] LABS: Glucose,Whole Blood 134 mg/dL (75-99)
[2020-12-12] MEDS: LACTATED RINGERS 1,000 ML IV SCH (12:41)
--- NOTE | 2020-12-12 13:11 | P.PN ---
Subjective Progress Note Date: 12/12/20 Principal diagnosis: Status post CABG This is a 70-year-old white male, history of coronary artery disease, patient underwent CABG 4 vessels, CASH to LAD, radial artery to obtuse marginal, saphenous vein graft to diagonal, saphenous vein graft to distal right coronary artery. This was done yesterday, postoperatively was asked to see the patient on consultation, and I was notified about his ventilator settings. Reviewed his chest x-ray. Adjusted his ventilator settings. And eventually extubated the patient around 19:30 p.m. I evaluated the patient today, patient is resting at a bedside chair, in no distress, he is on room air with O2 saturation is 94%, his cardiac output is 5.8 cardiac index is 2.4. He doing extremely well with incentive spirometry about 1000 mL. Chest tubes seem intact, and in proper positions, chest x-ray is showing minimal basilar atelectasis. His only complaint is postoperative chest pain controlled with pain medication. Denies shortness of breath. Actively using his incentive spirometer. He is in sinus rhythm, hemodynamically stable, not requiring any pressors or inotropes. The patient is seen today 05/12/2021 in follow-up in the intensive care unit. He is status post coronary artery bypass grafting 4 utilizing a CASH to LAD, radial artery to the obtuse marginal, saphenous vein grafts to diagonal, right coronary artery. This is postoperative day #2. He is currently sitting up in a chair at the bedside. Awake and alert in no acute distress. He is maintaining O2 saturations in the 90s on room air. He did have an episode of atrial fibrillation and is currently on amiodarone at 0.5 mg/m. Insulin drip at 4.5 units per hour. Lactated Ringer's at 20 mL per hour. He is pulling approximately 1000 ML's on his incentive spirometer. Right cordis remains in place. Mediastinal chest tube 2. Left pleural chest tube 1. Chest x-ray reveals no sizable pneumothorax or pleural effusions. White count 13.3. Hemoglobin 8.1. Platelets 130. Sodium 133. Potassium 4.2. Creatinine 1.07. He remains on bronchodilators. Heparin for DVT prophylaxis. Objective - Vital Signs Vital signs: Vital Signs Temp 98.2 F 12/12/20 10:00 Pulse 77 12/12/20 12:00 Resp 25 H 01/30/21 12:00 BP 112/71 12/12/20 12:00 Pulse Ox 93 L 12/12/20 12:00 Intake & Output 12/11/20 12/12/20 12/12/20 18:59 06:59 18:59 Intake Total 6608.231 2447.108 192.650 Output Total 543 600 50 Balance 477.532 563.108 142.650 Weight 112.5 kg 116.8 kg Intake: IV 971 464 180 Albumin Human 5% 250 ml 500 In Empty Bag 1 bag @ 250 mls/hr IVPB Q1HR PRN Rx#: [id number] CO/CI 20 Lactated Ringers 1,000 ml 270 350 150 @ 20 mls/hr IV .Q24H [facility] Rx#:[id number] ceFAZolin 2 gm In Sodium 100 Chloride 0.9% 50 ml @ Per Protocol 100 mls/hr IVPB ONCE ONE Rx#:[id number] pressure bag 81 114 30 Intake, IV Titration 49.532 39.108 12.650 Amount Clevidipine Butyrate 25 39.466 mg In Empty Bag 1 bag @ 1 MG/HR 2 mls/hr IV .Q24H [facility] Rx#:[id number] Insulin Regular 100 unit 10.066 39.108 12.650 In Sodium Chloride 0.9% 100 ml @ Per Protocol IV .Q0M [facility] Rx#:[id number] Oral 660 Output: Chest Tube Drainage 262 230 30 Left Left Pleural/ 72 90 10 Mediastinal Medistinal x2 190 140 20 Drainage 0 Left Wrist 0 Urine 281 370 20 Other: Voiding Method Indwelling Catheter Indwelling Catheter Indwelling Catheter ABP, PAP, CO, CI - Last Documented Arterial Blood Pressure 110/47 Pulmonary Artery Pressure 27/9 Cardiac Output 5.8 Cardiac Index 2.4 - Exam GENERAL EXAM: Alert, very pleasant 70 year old gentleman, on room air, up in a chair, comfortable in no apparent distress. HEAD: Normocephalic. EYES: Normal reaction of pupils, equal size. NOSE: Clear with pink turbinates. THROAT: No erythema or exudates. NECK: Right neck Cordis in place. No masses, no JVD. CHEST: Sternal dressing dry and intact. Heart Hugger in place. The mediastinal and left pleural chest tubes in place. LUNGS: Equal air entry with basilar crackles. CVS: S1 and S2 normal with no audible murmur, regular rhythm. ABDOMEN: No hepatosplenomegaly, normal bowel sounds, no guarding or rigidity. SPINE: No scoliosis or deformity SKIN: No rashes CENTRAL NERVOUS SYSTEM: No focal deficits, tone is normal in all 4 extremities. EXTREMITIES: There is no peripheral edema. No clubbing, no cyanosis. Peripheral pulses are intact. - Labs CBC & Chem 7: 12/12/20 04:20 12/12/20 04:20 Labs: Abnormal Lab Results - Last 24 Hours (Table) 12/11/20 12/11/20 12/11/20 Range/Units 13:07 14:05 14:59 WBC (3.8-10.6) k/uL RBC (4.30-5.90) m/uL Hgb (13.0-17.5) gm/dL Hct (39.0-53.0) % Plt Count (150-450) k/uL Neutrophils # (1.3-7.7) k/uL Monocytes # (0-1.0) k/uL Sodium (137-145) mmol/L BUN (9-20) mg/dL Glucose (74-99) mg/dL POC Glucose (mg/dL) 126 H 142 H 139 H (75-99) mg/dL Calcium (8.4-10.2) mg/dL Alkaline Phosphatase (38-126) U/L Total Protein (6.3-8.2) g/dL Albumin (3.5-5.0) g/dL 12/11/20 12/11/20 12/11/20 Range/Units 16:06 17:26 18:18 WBC (3.8-10.6) k/uL RBC (4.30-5.90) m/uL Hgb (13.0-17.5) gm/dL Hct (39.0-53.0) % Plt Count (150-450) k/uL Neutrophils # (1.3-7.7) k/uL Monocytes # (0-1.0) k/uL Sodium (137-145) mmol/L BUN (9-20) mg/dL Glucose (74-99) mg/dL POC Glucose (mg/dL) 138 H 127 H 140 H (75-99) mg/dL Calcium (8.4-10.2) mg/dL Alkaline Phosphatase (38-126) U/L Total Protein (6.3-8.2) g/dL Albumin (3.5-5.0) g/dL 12/11/20 12/11/20 12/11/20 Range/Units 19:08 20:10 22:01 WBC (3.8-10.6) k/uL RBC (4.30-5.90) m/uL Hgb (13.0-17.5) gm/dL Hct (39.0-53.0) % Plt Count (150-450) k/uL Neutrophils # (1.3-7.7) k/uL Monocytes # (0-1.0) k/uL Sodium (137-145) mmol/L BUN (9-20) mg/dL Glucose (74-99) mg/dL POC Glucose (mg/dL) 134 H 158 H 158 H (75-99) mg/dL Calcium (8.4-10.2) mg/dL Alkaline Phosphatase (38-126) U/L Total Protein (6.3-8.2) g/dL Albumin (3.5-5.0) g/dL 12/11/20 12/12/20 12/12/20 Range/Units 23:07 00:19 02:04 WBC (3.8-10.6) k/uL RBC (4.30-5.90) m/uL Hgb (13.0-17.5) gm/dL Hct (39.0-53.0) % Plt Count (150-450) k/uL Neutrophils # (1.3-7.7) k/uL Monocytes # (0-1.0) k/uL Sodium (137-145) mmol/L BUN (9-20) mg/dL Glucose (74-99) mg/dL POC Glucose (mg/dL) 144 H 142 H 142 H (75-99) mg/dL Calcium (8.4-10.2) mg/dL Alkaline Phosphatase (38-126) U/L Total Protein (6.3-8.2) g/dL Albumin (3.5-5.0) g/dL 12/12/20 12/12/20 12/12/20 Range/Units 03:20 04:20 04:20 WBC 13.3 H (3.8-10.6) k/uL RBC 2.46 L (4.30-5.90) m/uL Hgb 8.1 L D (13.0-17.5) gm/dL Hct 23.6 L (39.0-53.0) % Plt Count 130 L (150-450) k/uL Neutrophils # 10.5 H (1.3-7.7) k/uL Monocytes # 1.2 H (0-1.0) k/uL Sodium 133 L (137-145) mmol/L BUN 29 H (9-20) mg/dL Glucose 150 H (74-99) mg/dL POC Glucose (mg/dL) 159 H (75-99) mg/dL Calcium 7.6 L (8.4-10.2) mg/dL Alkaline Phosphatase 34 L (38-126) U/L Total Protein 5.1 L (6.3-8.2) g/dL Albumin 2.9 L (3.5-5.0) g/dL 12/12/20 12/12/20 12/12/20 Range/Units 04:28 06:26 08:01 WBC (3.8-10.6) k/uL RBC (4.30-5.90) m/uL Hgb (13.0-17.5) gm/dL Hct (39.0-53.0) % Plt Count (150-450) k/uL Neutrophils # (1.3-7.7) k/uL Monocytes # (0-1.0) k/uL Sodium (137-145) mmol/L BUN (9-20) mg/dL Glucose (74-99) mg/dL POC Glucose (mg/dL) 165 H 131 H 161 H (75-99) mg/dL Calcium (8.4-10.2) mg/dL Alkaline Phosphatase (38-126) U/L Total Protein (6.3-8.2) g/dL Albumin (3.5-5.0) g/dL 12/12/20 12/12/20 12/12/20 Range/Units 09:34 10:41 12:05 WBC (3.8-10.6) k/uL RBC (4.30-5.90) m/uL Hgb (13.0-17.5) gm/dL Hct (39.0-53.0) % Plt Count (150-450) k/uL Neutrophils # (1.3-7.7) k/uL Monocytes # (0-1.0) k/uL Sodium (137-145) mmol/L BUN (9-20) mg/dL Glucose (74-99) mg/dL POC Glucose (mg/dL) 138 H 134 H 134 H (75-99) mg/dL Calcium (8.4-10.2) mg/dL Alkaline Phosphatase (38-126) U/L Total Protein (6.3-8.2) g/dL Albumin (3.5-5.0) g/dL Assessment and Plan Assessment: 1 Coronary artery disease status post CABG 4 vessels, CASH to LAD, radial artery to obtuse marginal, saphenous vein graft to diagonal, saphenous vein gra ft to distal right coronary artery. Postoperative day #2. 2 Atrial fibrillation 3 Hypertension 4 Hyperlipidemia 5 Benign prosthetic hypertrophy 6 Carotid artery disease Plan: The patient was seen and evaluated by Dr. Wiley Chest x-ray and labs reviewed Continue current treatment plan Increase his activity as tolerated Encouraged increased use the incentive spirometer We will continue to follow I, the cosigning physician, performed a history & physical examination of the patient. Lungs sounds with faint crackles in the posterior bases. Maintaining good O2 saturations in the 90s on room air. I discussed the assessment and plan of care with my nurse practitioner, Kim Guthrie. I attest to the above note as dictated by her.
[2020-12-12 15:01] LABS: Cholesterol 52 mg/dL (<200); HDL Cholesterol 22 mg/dL (40-60); LDL Cholesterol,Calculated 15 mg/dL (0-99); Triglycerides 76 mg/dL (<150)
--- NOTE | 2020-12-12 15:01 | PN ---
PROGRESS NOTE 70-year-old white male, status post 4 CABGs. He is in ICU, he was getting dizzy yesterday. He is going to be taken off insulin drip today as sugars have been doing well. Go to Accu-Cheks. He has had a left pleural chest tube x1. Mediastinal chest tubes x2. Chest x-ray, no pneumothorax. White count 13.1, hemoglobin 8, platelets 130. Sodium 133, potassium 4.2, creatinine 1.07. He is alert, 70-year-old gentlemen, in no acute distress. Head normocephalic, atraumatic. Pupils equal, round, react to light and accommodation. Lungs show equal air entry, basilar crackles. Mediastinal and left pleural chest tube in place. Neck is supple. Heart S1, S2. Abdomen is soft, nontender. Labs are reviewed. ASSESSMENT: 1. Coronary artery disease, status post coronary artery bypass grafting x4, CASH to LAD, radial artery to obtuse marginal, saphenous vein to diagonal, saphenous vein to the distal right coronary. 2. Atrial fibrillation. 3. Hypertension. 4. Dyslipidemia. 5. Benign prostatic hypertrophy. 6. Carotid artery disease 75% bilaterally. Take him off the insulin drip. Accu-Chek protocol. Risk factor modification. Prognosis is guarded but it looks like he is doing well postop at this point. Sugars have been in the mid 100s. Please see further orders. MMODL / IJN: [id number] /
[2020-12-12 17:03] LABS: Glucose,Whole Blood 134 mg/dL (75-99)
[2020-12-12] MEDS: INSULIN ASPART (NovoLOG) 100 UNIT/ML VIAL SQ SCH ×2 (17:32→20:57)
[2020-12-12 20:41] LABS: Glucose,Whole Blood 143 mg/dL (75-99)
[2020-12-12] MEDS: SENNOSIDES-DOCUSATE SODIUM 1 EACH TAB PO SCH (20:57)
[2020-12-13 00:05] LABS: Hemoglobin A1C 5.8 % (4.0-6.0)
[2020-12-13] MEDS: KETOROLAC 15 MG/ML 1 ML VIAL IVP SCH ×3 (00:33→12:27)
[2020-12-13] MEDS: HEPARIN SODIUM,PORCINE 5,000 UNIT/ML 1 ML VIAL SQ SCH ×3 (00:33→16:02)
[2020-12-13] MEDS: DILTIAZEM ORAL 30 MG TAB PO SCH ×4 (00:33→17:22)
[2020-12-13 03:48] LABS: Basophils % (A) 0 %; Eosinophils % (A) 0 %; HCT 22.2 % (39.0-53.0); HGB 7.5 gm/dL (13.0-17.5); Lymphocytes # (A) 1.4 k/uL (1.0-4.8); Lymphocytes % (A) 11 %; MCH 32.5 pg (25.0-35.0); MCHC 33.8 g/dL (31.0-37.0); MCV 96.4 fL (80.0-100.0); Mean Platelet Volume 7.5; Monocytes # (A) 0.8 k/uL (0-1.0); Monocytes % (A) 7 %; Neutrophils # (A) 9.7 k/uL (1.3-7.7); Neutrophils % (A) 80 %; Platelet Count 140 k/uL (150-450); RBC 2.31 m/uL (4.30-5.90); RDW 12.2 % (11.5-15.5); WBC 12.2 k/uL (3.8-10.6)
[2020-12-13 03:59] LABS: Albumin 2.9 g/dL (3.5-5.0); Calcium 7.6 mg/dL (8.4-10.2); Potassium 4.2 mmol/L (3.5-5.1); Total Bilirubin 0.5 mg/dL (0.2-1.3); Total Protein 5.1 g/dL (6.3-8.2)
[2020-12-13 07:04] LABS: Glucose,Whole Blood 146 mg/dL (75-99)
[2020-12-13] MEDS: IPRATROPIUM-ALBUTEROL 3 ML NEB INHALATION SCH ×4 (07:12→18:49)
[2020-12-13] MEDS: PANTOPRAZOLE 40 MG TABLET PO SCH (07:14)
[2020-12-13] MEDS: ONDANSETRON 4 MG/2 ML VIAL IVP PRN (07:14)
[2020-12-13] MEDS: INSULIN ASPART (NovoLOG) 100 UNIT/ML VIAL SQ SCH ×4 (07:15→20:01)
--- NOTE | 2020-12-13 07:31 | XR ---
EXAMINATION TYPE: XR chest 1V portable DATE OF EXAM: 12/13/2020 COMPARISON: Chest x-ray 12/12/2020 HISTORY: Post cardiac surgery, chest tube TECHNIQUE: Single frontal view of the chest is obtained. FINDINGS: Patient is rotated and post median sternotomy, left atrial appendage clipping placement. L eft-sided chest tube remains in place. No sizable pneumothorax. Right jugular central venous sheath r emains in place. Lung volumes are low. There are overlying artifacts. No evident pleural effusion. Ca rdiac mediastinal silhouette is stable. Some basilar atelectasis persists. IMPRESSION: Essentially stable exam.
--- NOTE | 2020-12-13 07:43 | P.PN ---
Subjective Progress Note Date: 12/13/20 Principal diagnosis: Coronary artery disease and status post CABG This is a pleasant 70-year-old gentleman who was seen in the office recently for chest discomfort and underwent myocardial perfusion imaging stress test and that came in to be abnormal. Subsequently he underwent a heart catheterization and that revealed severe triple-vessel CAD and left main disease as well. S ubsequently the patient was referred for surgery and he underwent CABG. The patient was seen today. He remains hemodynamically stable but he continues to be in atrial fibrillation with controlled heart rate. If he continues to be in atrial fibrillation tomorrow should consider oral anticoagulation. The chest x-ray was reviewed today and seems to be good. He is on dual antiplatelet therapy of high intensity statin. He seems to slightly volume overloaded and he is going to receive one dose of Lasix IV. Objective - Vital Signs Vital signs: Vital Signs Temp 99.0 F 12/13/20 04:00 Pulse 86 12/13/20 07:23 Resp 20 12/13/20 07:00 BP 116/53 12/13/20 07:00 Pulse Ox 92 L 12/13/20 07:00 Intake & Output 12/12/20 12/13/20 12/13/20 18:59 06:59 18:59 Intake Total 426.650 386 66 Output Total 180 605 25 Balance 246.650 -219 41 Weight 119.295 kg Intake: IV 414 386 66 Lactated Ringers 1,000 ml 360 350 60 @ 20 mls/hr IV .Q24H [facility] Rx#:[id number] pressure bag 54 36 6 Intake, IV Titration 12.650 Amount Insulin Regular 100 unit 12.650 In Sodium Chloride 0.9% 100 ml @ Per Protocol IV .Q0M [facility] Rx#:[id number] Output: Chest Tube Drainage 60 130 Left Left Pleural/ 40 130 Mediastinal Medistinal x2 20 Urine 120 475 25 Other: Voiding Method Indwelling Catheter Urinal # Voids 0 0 ABP, PAP, CO, CI - Last Documented Arterial Blood Pressure 110/47 Pulmonary Artery Pressure 27/9 Cardiac Output 5.8 Cardiac Index 2.4 - Constitutional General appearance: Present: no acute distress - Respiratory Respiratory: bilateral: diminished - Cardiovascular Rhythm: irregularly irregular Heart sounds: normal: S1, S2 - Labs CBC & Chem 7: 12/13/20 03:10 12/13/20 03:10 Labs: Abnormal Lab Results - Last 24 Hours (Table) 12/12/20 12/12/20 12/12/20 Range/Units 04:20 08:01 09:34 WBC (3.8-10.6) k/uL RBC (4.30-5.90) m/uL Hgb (13.0-17.5) gm/dL Hct (39.0-53.0) % Plt Count (150-450) k/uL Neutrophils # (1.3-7.7) k/uL Sodium (137-145) mmol/L BUN (9-20) mg/dL Glucose (74-99) mg/dL POC Glucose (mg/dL) 161 H 138 H (75-99) mg/dL Calcium (8.4-10.2) mg/dL Total Protein (6.3-8.2) g/dL Albumin (3.5-5.0) g/dL HDL Cholesterol 22 L (40-60) mg/dL 12/12/20 12/12/20 12/12/20 Range/Units 10:41 12:05 17:01 WBC (3.8-10.6) k/uL RBC (4.30-5.90) m/uL Hgb (13.0-17.5) gm/dL Hct (39.0-53.0) % Plt Count (150-450) k/uL Neutrophils # (1.3-7.7) k/uL Sodium (137-145) mmol/L BUN (9-20) mg/dL Glucose (74-99) mg/dL POC Glucose (mg/dL) 134 H 134 H 134 H (75-99) mg/dL Calcium (8.4-10.2) mg/dL Total Protein (6.3-8.2) g/dL Albumin (3.5-5.0) g/dL HDL Cholesterol (40-60) mg/dL 12/12/20 12/13/20 12/13/20 Range/Units 20:40 03:10 03:10 WBC 12.2 H (3.8-10.6) k/uL RBC 2.31 L (4.30-5.90) m/uL Hgb 7.5 L (13.0-17.5) gm/dL Hct 22.2 L (39.0-53.0) % Plt Count 140 L (150-450) k/uL Neutrophils # 9.7 H (1.3-7.7) k/uL Sodium 131 L (137-145) mmol/L BUN 34 H (9-20) mg/dL Glucose 132 H (74-99) mg/dL POC Glucose (mg/dL) 143 H (75-99) mg/dL Calcium 7.6 L (8.4-10.2) mg/dL Total Protein 5.1 L (6.3-8.2) g/dL Albumin 2.9 L (3.5-5.0) g/dL HDL Cholesterol (40-60) mg/dL 12/13/20 Range/Units 07:02 WBC (3.8-10.6) k/uL RBC (4.30-5.90) m/uL Hgb (13.0-17.5) gm/dL Hct (39.0-53.0) % Plt Count (150-450) k/uL Neutrophils # (1.3-7.7) k/uL Sodium (137-145) mmol/L BUN (9-20) mg/dL Glucose (74-99) mg/dL POC Glucose (mg/dL) 146 H (75-99) mg/dL Calcium (8.4-10.2) mg/dL Total Protein (6.3-8.2) g/dL Albumin (3.5-5.0) g/dL HDL Cholesterol (40-60) mg/dL Assessment and Plan Assessment: Assessment #1 severe triple-vessel CAD and status post CABG #2 preserved left ventricular systolic function #3 hypertension #4 dyslipidemia Plan #1 continue dual antiplatelet therapy #2 continue amiodarone by mouth #3 consider oral anticoagulation if he continues to be in atrial fibrillation for 48 hours or more #4 follow-up with the patient
[2020-12-13] MEDS ORDERED: FUROSEMIDE 10 MG/ML 2 ML VIAL IV STA (08:26)
[2020-12-13] MEDS ORDERED: METOCLOPRAMIDE 5 MG/ML 2 ML VIAL IVP STA (08:27)
[2020-12-13] MEDS ORDERED: ACETAMINOPHEN TAB 325 MG TAB PO PRN (08:27)
[2020-12-13] MEDS: ATORVASTATIN 80 MG TAB PO SCH (08:47)
[2020-12-13] MEDS: TAMSULOSIN 0.4 MG CAP.ER.24H PO SCH (08:48)
[2020-12-13] MEDS: CLOPIDOGREL 75 MG TAB PO SCH (08:48)
[2020-12-13] MEDS: ASPIRIN 325 MG TAB PO SCH (08:48)
[2020-12-13] MEDS: MULTIVITAMINS, THERA 1 EACH TAB PO SCH (08:48)
[2020-12-13] MEDS: AMIODARONE 200 MG TAB PO SCH ×2 (08:48→20:00)
--- NOTE | 2020-12-13 09:43 | P.PN ---
Subjective Progress Note Date: 12/13/20 Principal diagnosis: Coronary artery disease with left main disease, unstable angina. Previous medical history of hypertension, hyperlipidemia, enlarged prostate, never smoker, bilateral internal carotid artery stenosis, and family history of premature coronary artery disease POD #3 coronary artery bypass grafting 4 vessels, left internal mammary artery to the left anterior descending artery, radial artery to the obtuse marginal artery, reverse saphenous vein graft to the diagonal artery, reverse saphenous vein graft to the distal right coronary artery, endoscopic harvesting of the left greater saphenous vein, endoscopic harvest of the left radial artery, epi- aortic ultrasound, intraoperative transesophageal echocardiogram, ligation of the left atrial appendage using a 35 mm AtriCure clip. Atrial fibrillation, known complication of open-heart surgery The patient's currently sitting up in a recliner in the intensive care unit in no acute distress. States postoperative pain controlled on current medication regimen, denies shortness of breath. Actively using incentive spirometer. He does state that he felt better yesterday than today, still complains of some nausea. Continues to be in controlled atrial fibrillation, hemodynamically stable. He does have a generalized edema and urine output has been marginal. Left pleural chest tube, right internal jugular Cordis present. Objective - Vital Signs Vital signs: Vital Signs Temp 98.1 F 12/13/20 08:00 Pulse 87 12/13/20 09:00 Resp 18 12/13/20 09:00 BP 128/66 12/13/20 09:00 Pulse Ox 91 L 12/13/20 09:00 Intake & Output 12/12/20 12/13/20 12/13/20 18:59 06:59 18:59 Intake Total 426.650 386 99 Output Total 180 605 175 Balance 246.650 -219 -76 Weight 119.295 kg Intake: IV 414 386 99 Lactated Ringers 1,000 ml 360 350 90 @ 20 mls/hr IV .Q24H [facility] Rx#:[id number] pressure bag 54 36 9 Intake, IV Titration 12.650 Amount Insulin Regular 100 unit 12.650 In Sodium Chloride 0.9% 100 ml @ Per Protocol IV .Q0M [facility] Rx#:[id number] Output: Chest Tube Drainage 60 130 Left Left Pleural/ 40 130 Mediastinal Medistinal x2 20 Urine 120 475 175 Other: Voiding Method Indwelling Catheter Urinal # Voids 0 0 ABP, PAP, CO, CI - Last Documented Arterial Blood Pressure 110/47 Pulmonary Artery Pressure 27/9 Cardiac Output 5.8 Cardiac Index 2.4 - Constitutional General appearance: Present: cooperative, no acute distress, obese - Respiratory Details: Lungs sounds diminished bilaterally. Respirations even, nonlabored. Currently on room air with oxygen saturation 93%. Able to achieve 2328-0822 mL on his incentive spirometry. Weak cough. Left pleural chest tubes present to continuous wall suction, 80 mL thin serosanguineous drainage overnight, 230 mL in the last 24 hours. No air leaks present. - Cardiovascular Details: S1, S2 present. Irregular rate and rhythm, controlled atrial fibrillation on telemetry. Sternum stable. A/V epicardial pacemaker wires present, grounded. Palpable peripheral pulses bilaterally. Generalized edema present. No calf pain or tenderness noted. Heart hugger in place with patient demonstrating appropriate use. Antiembolism stockings, SCDs present. Right internal jugular Cordis present. - Gastrointestinal Gastrointestinal Comment(s): Abdomen soft, nontender, nondistended, tympanic to percussion. Active bowel sounds present 4 quadrants. Tolerating minimal diet. Positive flatus, does complain of some nausea but better than yesterday - Genitourinary Genitourinary Comment(s): Continues to void clear, yellow urine with marginal output, 595 mL the last 24 hours. - Integumentary Integumentary Comment(s): Skin is warm and dry with evidence of good perfusion. Anterior chest incision well approximated and covered with dry intact dressing. Left lower extremity EVH site well approximated without redness or drainage. Left radial artery harvest site well approximated without redness or drainage. Patient is able to wiggle his fingers and r developer appropriately, does complain of some numbness to his fingers but better than yesterday. - Neurologic Neurologic: Present: CNII-XII intact - Musculoskeletal Musculoskeletal: Present: strength equal bilaterally - Psychiatric Psychiatric: Present: A&O x's 3, appropriate affect - Allied health notes Allied health notes reviewed: nursing - Labs CBC & Chem 7: 12/13/20 03:10 12/13/20 03:10 Labs: Abnormal Lab Results - Last 24 Hours (Table) 12/12/20 12/12/20 12/12/20 Range/Units 04:20 09:34 10:41 WBC (3.8-10.6) k/uL RBC (4.30-5.90) m/uL Hgb (13.0-17.5) gm/dL Hct (39.0-53.0) % Plt Count (150-450) k/uL Neutrophils # (1.3-7.7) k/uL Sodium (137-145) mmol/L BUN (9-20) mg/dL Glucose (74-99) mg/dL POC Glucose (mg/dL) 138 H 134 H (75-99) mg/dL Calcium (8.4-10.2) mg/dL Total Protein (6.3-8.2) g/dL Albumin (3.5-5.0) g/dL HDL Cholesterol 22 L (40-60) mg/dL 12/12/20 12/12/20 12/12/20 Range/Units 12:05 17:01 20:40 WBC (3.8-10.6) k/uL RBC (4.30-5.90) m/uL Hgb (13.0-17.5) gm/dL Hct (39.0-53.0) % Plt Count (150-450) k/uL Neutrophils # (1.3-7.7) k/uL Sodium (137-145) mmol/L BUN (9-20) mg/dL Glucose (74-99) mg/dL POC Glucose (mg/dL) 134 H 134 H 143 H (75-99) mg/dL Calcium (8.4-10.2) mg/dL Total Protein (6.3-8.2) g/dL Albumin (3.5-5.0) g/dL HDL Cholesterol (40-60) mg/dL 12/13/20 12/13/20 12/13/20 Range/Units 03:10 03:10 07:02 WBC 12.2 H (3.8-10.6) k/uL RBC 2.31 L (4.30-5.90) m/uL Hgb 7.5 L (13.0-17.5) gm/dL Hct 22.2 L (39.0-53.0) % Plt Count 140 L (150-450) k/uL Neutrophils # 9.7 H (1.3-7.7) k/uL Sodium 131 L (137-145) mmol/L BUN 34 H (9-20) mg/dL Glucose 132 H (74-99) mg/dL POC Glucose (mg/dL) 146 H (75-99) mg/dL Calcium 7.6 L (8.4-10.2) mg/dL Total Protein 5.1 L (6.3-8.2) g/dL Albumin 2.9 L (3.5-5.0) g/dL HDL Cholesterol (40-60) mg/dL - Imaging and Cardiology Chest x-ray: report reviewed, image reviewed Assessment and Plan Assessment: 1. Coronary artery disease with left main disease, unstable angina, status post four-vessel CABG 2. Hypertension 3. Hyperlipidemia, treated, cholesterol 95, LDL 47 4. Enlarged prostate, treated 5. Never smoker, preoperative FEV1 91% of predicted 6. Bilateral internal carotid artery stenosis, 65-70% on the right and near 75% on the left per angiography, asymptomatic 7. Family history of premature coronary artery disease 8. Atrial fibrillation, known complication of open-heart surgery, status post left atrial appendage ligation Plan: 1. Continue aspirin, statin, Plavix, beta marcus therapy. Will increase beta marcus therapy as tolerated. 2. Continue oral Cardizem for radial artery spasm. Do not discontinue CCB without discussing with cardio thoracic surgery 3. Continue amiodarone. Likely will start anticoagulation tomorrow after all lines and tubes are out 4. Encourage incentive spirometry use 10 times every hour while awake. Bronchodilators per pulmonology 5. Increase activity, ambulate as tolerated. PT/OT/cardiac rehab consulted. He needs much encouragement to ambulate 6. Will monitor daily labs and x-rays. Electrolyte replacement per protocol. Will give 20 mg IV push Lasix today 7. GI/DVT prophylaxis 8. Pain control with current medication regimen. 9. Insulin management per primary care service. Patient is not diabetic, preoperative A1c 5.7% 10. Continue cordis for another 24 hours to transduce CVP, will discontinue Cordis and epicardial pacemaker wires tomorrow morning 10. Discontinue left pleural chest tube 11. Will give IV Reglan 1 dose today. 12. Strict accurate intake and output. Daily weights. 13. More recommendations to follow Time with Patient: Greater than 30
[2020-12-13] MEDS: METOPROLOL TARTRATE 12.5 MG TAB PO SCH ×2 (10:00→22:22)
[2020-12-13 11:28] LABS: Glucose,Whole Blood 138 mg/dL (75-99)
[2020-12-13] MEDS: LACTATED RINGERS 1,000 ML IV SCH (12:00)
--- NOTE | 2020-12-13 13:12 | P.PN ---
Subjective Progress Note Date: 12/13/20 Principal diagnosis: Status post CABG, postoperative day #3. This is a 70-year-old white male, history of coronary artery disease, patient underwent CABG 4 vessels, CASH to LAD, radial artery to obtuse marginal, saphenous vein graft to diagonal, saphenous vein graft to distal right coronary artery. This was done yesterday, postoperatively was asked to see the patient on consultation, and I was notified about his ventilator settings. Reviewed his chest x-ray. Adjusted his ventilator settings. And eventually extubated the patient around 19:30 p.m. I evaluated the patient today, patient is resting at a bedside chair, in no distress, he is on room air with O2 saturation is 94%, his cardiac output is 5.8 cardiac index is 2.4. He doing extremely well with incentive spirometry about 1000 mL. Chest tubes seem intact, and in proper positions, chest x-ray is showing minimal basilar atelectasis. His only complaint is postoperative chest pain controlled with pain medication. Denies shortness of breath. Actively using his incentive spirometer. He is in sinus rhythm, hemodynamically stable, not requiring any pressors or inotropes. The patient is seen today 05/12/2021 in follow-up in the intensive care unit. He is status post coronary artery bypass grafting 4 utilizing a CASH to LAD, radial artery to the obtuse marginal, saphenous vein grafts to diagonal, right coronary artery. This is postoperative day #2. He is currently sitting up in a chair at the bedside. Awake and alert in no acute distress. He is maintaining O2 saturations in the 90s on room air. He did have an episode of atrial fibrillation and is currently on amiodarone at 0.5 mg/m. Insulin drip at 4.5 units per hour. Lactated Ringer's at 20 mL per hour. He is pulling approximately 1000 ML's on his incentive spirometer. Right cordis remains in place. Mediastinal chest tube 2. Left pleural chest tube 1. Chest x-ray reveals no sizable pneumothorax or pleural effusions. White count 13.3. Hemoglobin 8.1. Platelets 130. Sodium 133. Potassium 4.2. Creatinine 1.07. He remains on bronchodilators. Heparin for DVT prophylaxis. Reevaluated today on 12/13/2020, patient developed postoperative atrial fibrillation, presently sitting in a recliner, in no distress. Doing well with incentive spirometry. Pain seems to be fairly well controlled. Still has intermittent episodes of nausea. Remains in controlled atrial fibrillation, hemodynamically stable, continues to have left pleural chest tube and the right internal jugular Cordis in place. Chest x-ray is essentially stable, evidence of postoperative changes, otherwise not significantly. CBC is normal except for hemoglobin of 7.5. Objective - Vital Signs Vital signs: Vital Signs Temp 99.3 F 12/13/20 12:00 Pulse 105 H 12/13/20 13:00 Resp 19 12/13/20 13:00 BP 114/60 12/13/20 13:00 Pulse Ox 90 L 12/13/20 13:00 Intake & Output 12/12/20 12/13/20 12/13/20 18:59 06:59 18:59 Intake Total 426.650 386 231 Output Total 180 605 650 Balance 246.650 -219 -419 Weight 119.295 kg Intake: IV 414 386 231 Lactated Ringers 1,000 ml 360 350 210 @ 20 mls/hr IV .Q24H JORDIN Rx#:[id number] pressure bag 54 36 21 Intake, IV Titration 12.650 Amount Insulin Regular 100 unit 12.650 In Sodium Chloride 0.9% 100 ml @ Per Protocol IV .Q0M JORDIN Rx#:[id number] Output: Chest Tube Drainage 60 130 Left Left Pleural/ 40 130 Mediastinal Medistinal x2 20 Urine 120 475 650 Other: Voiding Method Indwelling Catheter Urinal Urinal # Voids 0 0 ABP, PAP, CO, CI - Last Documented Arterial Blood Pressure 110/47 Pulmonary Artery Pressure 27/9 Cardiac Output 5.8 Cardiac Index 2.4 - Exam GENERAL EXAM: Alert, very pleasant 70 year old gentleman, on room air. HEAD: Normocephalic. EENT PERRLA, EOMI, nonicteric. Moist mucous membranes. NECK: Right neck Cordis in place. No JVD, no neck masses. CHEST: Sternal dressing dry and intact. Symmetrical chest expansion. LUNGS: Diminished breath sounds at the bases no crackles or rhonchi or wheezes. CVS: Irregular irregular rhythm. S1 and S2 normal with no audible murmur ABDOMEN: No hepatosplenomegaly, normal bowel sounds, no guarding or rigidity. SPINE: No scoliosis or deformity SKIN: No rashes CENTRAL NERVOUS SYSTEM: No focal deficits, tone is normal in all 4 extremities. EXTREMITIES: There is no peripheral edema. No clubbing, no cyanosis. Peripheral pulses are intact. - Labs CBC & Chem 7: 12/13/20 03:10 12/13/20 03:10 Labs: Abnormal Lab Results - Last 24 Hours (Table) 12/12/20 12/12/20 12/12/20 Range/Units 04:20 17:01 20:40 WBC (3.8-10.6) k/uL RBC (4.30-5.90) m/uL Hgb (13.0-17.5) gm/dL Hct (39.0-53.0) % Plt Count (150-450) k/uL Neutrophils # (1.3-7.7) k/uL Sodium (137-145) mmol/L BUN (9-20) mg/dL Glucose (74-99) mg/dL POC Glucose (mg/dL) 134 H 143 H (75-99) mg/dL Calcium (8.4-10.2) mg/dL Total Protein (6.3-8.2) g/dL Albumin (3.5-5.0) g/dL HDL Cholesterol 22 L (40-60) mg/dL 12/13/20 12/13/20 12/13/20 Range/Units 03:10 03:10 07:02 WBC 12.2 H (3.8-10.6) k/uL RBC 2.31 L (4.30-5.90) m/uL Hgb 7.5 L (13.0-17.5) gm/dL Hct 22.2 L (39.0-53.0) % Plt Count 140 L (150-450) k/uL Neutrophils # 9.7 H (1.3-7.7) k/uL Sodium 131 L (137-145) mmol/L BUN 34 H (9-20) mg/dL Glucose 132 H (74-99) mg/dL POC Glucose (mg/dL) 146 H (75-99) mg/dL Calcium 7.6 L (8.4-10.2) mg/dL Total Protein 5.1 L (6.3-8.2) g/dL Albumin 2.9 L (3.5-5.0) g/dL HDL Cholesterol (40-60) mg/dL 12/13/20 Range/Units 11:28 WBC (3.8-10.6) k/uL RBC (4.30-5.90) m/uL Hgb (13.0-17.5) gm/dL Hct (39.0-53.0) % Plt Count (150-450) k/uL Neutrophils # (1.3-7.7) k/uL Sodium (137-145) mmol/L BUN (9-20) mg/dL Glucose (74-99) mg/dL POC Glucose (mg/dL) 138 H (75-99) mg/dL Calcium (8.4-10.2) mg/dL Total Protein (6.3-8.2) g/dL Albumin (3.5-5.0) g/dL HDL Cholesterol (40-60) mg/dL Assessment and Plan Assessment: Impression: Coronary artery disease, status post four-vessel CABG postoperative day #3 Benign essential hypertension. Dyslipidemia. Lifelong nonsmoker. History of bilateral internal carotid artery disease. Strong family history of premature coronary artery disease. Postoperative atelectasis, expected. Postoperative atrial fibrillation, rate controlled, expected. Recommendation: Continue incentive spirometry. Ambulate. As tolerated. Continue aspirin statins and Plavix beta blockers. Continue pain control. Monitor daily x-rays. Continue GI and DVT prophylaxis. We'll continue to follow. Time with Patient: Less than 30
[2020-12-13] MEDS: SODIUM FERRIC GLUCONAT-SUCROSE 125 MG in SODIUM CHLORIDE 0.9% 100 ML IVPB SCH (13:36)
--- NOTE | 2020-12-13 15:06 | PN ---
PROGRESS NOTE 70-year-old white male status post coronary bypass graft x4 vessels. He is seen in ICU. He is feeling better. Some tubes have been removed. He is in controlled atrial fibrillation. Urine output borderline low. He is going to drink more water. Has pleural chest tube. Right internal jugular is still there. Satting 91 on room air. Blood pressure 128/66, respiratory rate 16-18. We took him off his insulin drip with an Accu-Chek protocol. He is alert and orient x3, saturating 93% on room air. White count 12.2, hemoglobin 7.5, platelets 140. Sodium 132, potassium 4.2. ASSESSMENT: 1. Status post four vessel coronary artery bypass grafting. 2. Hypertension. 3. Dyslipidemia. 4. Benign prostatic hypertrophy. 5. Bilateral internal carotid stenosis. 6. Family history of premature coronary artery disease. 7. Atrial fibrillation. 8. Status post open heart surgery. PLAN: Continue aspirin, statins, Plavix, beta marcus, oral Cardizem for radial artery spasm. He is on amiodarone and will possibly give him long-term Eliquis for anticoagulation starting tomorrow for atrial fibrillation. He will be given 20 of Lasix today. A1c is 5.7. He is not diabetic. We will try to get him off insulin and take this chest tube out, give some Raglan and continue current treatments. Prognosis guarded. MMODL / IJN: [id number] /
[2020-12-13 17:01] LABS: Glucose,Whole Blood 152 mg/dL (75-99)
[2020-12-13 19:54] LABS: Glucose,Whole Blood 182 mg/dL (75-99)
[2020-12-13] MEDS: SENNOSIDES-DOCUSATE SODIUM 1 EACH TAB PO SCH (20:00)
[2020-12-13] MEDS: BENZOCAINE/MENTHOL LOZENG 1 EACH LOZENGE MUCOUS MEM PRN (22:22)
[2020-12-14] MEDS: HEPARIN SODIUM,PORCINE 5,000 UNIT/ML 1 ML VIAL SQ SCH ×3 (00:10→17:11)
[2020-12-14] MEDS: DILTIAZEM ORAL 30 MG TAB PO SCH ×5 (00:10→22:59)
[2020-12-14 04:00] LABS: Basophils % (A) 0 %; Eosinophils % (A) 0 %; HCT 22.4 % (39.0-53.0); HGB 7.9 gm/dL (13.0-17.5); Lymphocytes # (A) 1.2 k/uL (1.0-4.8); Lymphocytes % (A) 7 %; MCH 33.5 pg (25.0-35.0); MCHC 35.4 g/dL (31.0-37.0); MCV 94.7 fL (80.0-100.0); Mean Platelet Volume 7.7; Monocytes # (A) 1.4 k/uL (0-1.0); Monocytes % (A) 8 %; Neutrophils # (A) 14.3 k/uL (1.3-7.7); Neutrophils % (A) 82 %; Platelet Count 207 k/uL (150-450); RBC 2.36 m/uL (4.30-5.90); RDW 12.2 % (11.5-15.5); WBC 17.3 k/uL (3.8-10.6)
[2020-12-14 04:26] LABS: Albumin 2.9 g/dL (3.5-5.0); Calcium 7.8 mg/dL (8.4-10.2); Magnesium 2.8 mg/dL (1.6-2.3); Potassium 4.1 mmol/L (3.5-5.1); Total Bilirubin 0.6 mg/dL (0.2-1.3); Total Protein 5.3 g/dL (6.3-8.2)
[2020-12-14 06:54] LABS: Glucose,Whole Blood 146 mg/dL (75-99)
[2020-12-14] MEDS: INSULIN ASPART (NovoLOG) 100 UNIT/ML VIAL SQ SCH ×4 (06:56→21:09)
[2020-12-14] MEDS: PANTOPRAZOLE 40 MG TABLET PO SCH (06:56)
[2020-12-14] MEDS ORDERED: METOCLOPRAMIDE 5 MG/ML 2 ML VIAL IVP STA (07:14)
[2020-12-14] MEDS: LACTATED RINGERS 1,000 ML IV SCH (07:41)
[2020-12-14] MEDS: METOPROLOL TARTRATE 25 MG TAB PO SCH ×2 (08:00→18:41)
[2020-12-14] MEDS ORDERED: FUROSEMIDE 10 MG/ML 2 ML VIAL IV STA (08:05)
[2020-12-14] MEDS: IPRATROPIUM-ALBUTEROL 3 ML NEB INHALATION SCH ×4 (08:07→20:14)
--- NOTE | 2020-12-14 08:18 | P.PN ---
Subjective Progress Note Date: 12/14/20 Principal diagnosis: Coronary artery disease with left main disease, unstable angina. Previous medical history of hypertension, hyperlipidemia, enlarged prostate, never smoker, bilateral internal carotid artery stenosis, and family history of premature coronary artery disease POD #4 coronary artery bypass grafting 4 vessels, left internal mammary artery to the left anterior descending artery, radial artery to the obtuse marginal artery, reverse saphenous vein graft to the diagonal artery, reverse saphenous vein graft to the distal right coronary artery, endoscopic harvesting of the left greater saphenous vein, endoscopic harvest of the left radial artery, epi- aortic ultrasound, intraoperative transesophageal echocardiogram, ligation of the left atrial appendage using a 35 mm AtriCure clip. Atrial fibrillation, known complication of open-heart surgery The patient's currently sitting up in a recliner in the intensive care unit in no acute distress. States postoperative pain controlled on current medication regimen, denies shortness of breath. Actively using incentive spirometer. Continues to be in controlled atrial fibrillation, hemodynamically stable. He does have a generalized edema, urine output improved after lasix given yesterday. Right internal jugular Cordis, epicardial pacemaker wires remain present. No new concerns Objective - Vital Signs Vital signs: Vital Signs Temp 98.9 F 12/14/20 04:00 Pulse 101 H 12/14/20 07:00 Resp 31 H 12/14/20 07:00 BP 145/61 12/14/20 07:00 Pulse Ox 94 L 12/14/20 07:00 Intake & Output 12/13/20 12/14/20 12/14/20 18:59 06:59 18:59 Intake Total 429 963 33 Output Total 800 475 25 Balance -371 488 8 Weight 118.5 kg Intake: IV 429 363 33 Lactated Ringers 1,000 ml 390 330 30 @ 20 mls/hr IV .Q24H JORDIN Rx#:[id number] pressure bag 39 33 3 Oral 600 Output: Urine 800 475 25 Other: Voiding Method Urinal Urinal # Voids 0 1 1 ABP, PAP, CO, CI - Last Documented Arterial Blood Pressure 110/47 Pulmonary Artery Pressure 27/9 Cardiac Output 5.8 Cardiac Index 2.4 - Constitutional General appearance: Present: cooperative, no acute distress, obese - Respiratory Details: Lungs sounds diminished bilaterally. Respirations even, nonlabored. Currently on room air with oxygen saturation 93%. Able to achieve 7787-8229 mL on his incentive spirometry. Weak cough. - Cardiovascular Details: S1, S2 present. Irregular rate and rhythm, controlled atrial fibrillation on telemetry. Sternum stable. A/V epicardial pacemaker wires present, grounded. Palpable peripheral pulses bilaterally. Generalized edema present. No calf pain or tenderness noted. Heart hugger in place with patient demonstrating appropriate use. Antiembolism stockings, SCDs present. Right internal jugular Cordis present. - Gastrointestinal Gastrointestinal Comment(s): Abdomen soft, nontender, nondistended, tympanic to percussion. Active bowel sounds present 4 quadrants. Tolerating minimal diet. Positive flatus, negative bowel movement - Genitourinary Genitourinary Comment(s): Continues to void clear, yellow urine, output 1275 mL the last 24 hours. - Integumentary Integumentary Comment(s): Skin is warm and dry with evidence of good perfusion. Anterior chest incision well approximated and covered with dry intact dressing. Left lower extremity EVH site well approximated without redness or drainage. Left radial artery harvest site well approximated without redness or drainage. 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 - Neurologic Neurologic: Present: CNII-XII intact - Musculoskeletal Musculoskeletal: Present: gait normal, strength equal bilaterally - Psychiatric Psychiatric: Present: A&O x's 3, appropriate affect, intact judgment & insight - Allied health notes Allied health notes reviewed: nursing - Labs CBC & Chem 7: 12/14/20 03:39 12/14/20 03:39 Labs: Abnormal Lab Results - Last 24 Hours (Table) 12/13/20 12/13/20 12/13/20 Range/Units 11:28 17:00 19:53 WBC (3.8-10.6) k/uL RBC (4.30-5.90) m/uL Hgb (13.0-17.5) gm/dL Hct (39.0-53.0) % Neutrophils # (1.3-7.7) k/uL Monocytes # (0-1.0) k/uL Sodium (137-145) mmol/L BUN (9-20) mg/dL Creatinine (0.66-1.25) mg/dL Glucose (74-99) mg/dL POC Glucose (mg/dL) 138 H 152 H 182 H (75-99) mg/dL Calcium (8.4-10.2) mg/dL Magnesium (1.6-2.3) mg/dL Total Protein (6.3-8.2) g/dL Albumin (3.5-5.0) g/dL 12/14/20 12/14/20 12/14/20 Range/Units 03:39 03:39 06:53 WBC 17.3 H (3.8-10.6) k/uL RBC 2.36 L (4.30-5.90) m/uL Hgb 7.9 L (13.0-17.5) gm/dL Hct 22.4 L (39.0-53.0) % Neutrophils # 14.3 H (1.3-7.7) k/uL Monocytes # 1.4 H (0-1.0) k/uL Sodium 132 L (137-145) mmol/L BUN 42 H (9-20) mg/dL Creatinine 1.29 H (0.66-1.25) mg/dL Glucose 136 H (74-99) mg/dL POC Glucose (mg/dL) 146 H (75-99) mg/dL Calcium 7.8 L (8.4-10.2) mg/dL Magnesium 2.8 H (1.6-2.3) mg/dL Total Protein 5.3 L (6.3-8.2) g/dL Albumin 2.9 L (3.5-5.0) g/dL - Imaging and Cardiology Chest x-ray: image reviewed Assessment and Plan Assessment: 1. Coronary artery disease with left main disease, unstable angina, status post four-vessel CABG 2. Hypertension 3. Hyperlipidemia, treated, cholesterol 95, LDL 47 4. Enlarged prostate, treated 5. Never smoker, preoperative FEV1 91% of predicted 6. Bilateral internal carotid artery stenosis, 65-70% on the right and near 75% on the left per angiography, asymptomatic 7. Family history of premature coronary artery disease 8. Atrial fibrillation, known complication of open-heart surgery, status post left atrial appendage ligation Plan: 1. Continue aspirin, statin, Plavix, beta marcus therapy. Will increase beta marcus therapy as tolerated, increased to 25 mg twice daily today. 2. Continue oral Cardizem for radial artery spasm. Do not discontinue CCB wit hout discussing with cardio thoracic surgery 3. Continue amiodarone. Will start anticoagulation today after all lines and tubes are out 4. Encourage incentive spirometry use 10 times every hour while awake. Bronchodilators per pulmonology 5. Increase activity, ambulate as tolerated. PT/OT/cardiac rehab consulted. He needs much encouragement to ambulate 6. Will monitor daily labs and x-rays. Electrolyte replacement per protocol. Will give 25% albumin followed by 20 mg IV push Lasix today 7. GI/DVT prophylaxis 8. Pain control with current medication regimen. 9. Insulin management per primary care service. Patient is not diabetic, preoperative A1c 5.7% 10. Discontinue cordis, will discontinue epicardial pacemaker wires today 10. Will give IV Reglan 1 dose today. 11. Strict accurate intake and output. Daily weights. 12. Will place transfer orders for cardiac stepdown unit, may transfer when bed available 13. More recommendations to follow Time with Patient: Greater than 30
[2020-12-14] MEDS ORDERED: ALBUMIN HUMAN 25% 50 ML in EMPTY BAG 1 BAG IVPB ONE (08:30)
[2020-12-14] MEDS: CLOPIDOGREL 75 MG TAB PO SCH (08:55)
[2020-12-14] MEDS: MULTIVITAMINS, THERA 1 EACH TAB PO SCH (08:55)
[2020-12-14] MEDS: ASPIRIN 81 MG PO SCH (08:55)
[2020-12-14] MEDS: TAMSULOSIN 0.4 MG CAP.ER.24H PO SCH (08:56)
[2020-12-14] MEDS: AMIODARONE 200 MG TAB PO SCH ×2 (09:53→19:58)
[2020-12-14] MEDS: ATORVASTATIN 80 MG TAB PO SCH (09:53)
[2020-12-14] MEDS ORDERED: SODIUM CHLORIDE 0.65% NASAL SPRAY 44 ML BTL NASAL PRN (10:30)
--- NOTE | 2020-12-14 10:31 | XR ---
EXAMINATION TYPE: XR chest 1V portable DATE OF EXAM: 12/14/2020 COMPARISON: Chest x-ray 12/13/2020 HISTORY: Post cardiac surgery, chest tube removal TECHNIQUE: Single frontal view of the chest is obtained. FINDINGS: Patient is post median sternotomy and left atrial appendage clip placement. There are over lying artifacts. Right jugular central venous sheath remains in place, left chest tube has in removed . No evident pneumothorax. No effusion. Cardiac mediastinal silhouette is stable. Minimal patchy basi lar density is noted. IMPRESSION: No evident, condition status post chest tube removal. Residual basilar atelectasis.
--- NOTE | 2020-12-14 11:02 | P.PN ---
Subjective Progress Note Date: 12/14/20 Principal diagnosis: Coronary artery disease. Progress note dated 12/14/2020. 70-year-old male who is postoperative day #4, status post four-vessel bypass grafting. The patient is doing relatively well. He does have a history of benign essential hypertension, hyperlipidemia, bilateral internal carotid artery disease, strong family history of premature coronary disease, postoperative atelectasis, and postoperative atrial fibrillation. Currently, the patient is not receiving any supplemental oxygen. Is getting saline keep vein open. We are encouraging the patient to deep breathe, cough, and clear secretions, and using incentive spirometer every hour. Patient should continue on his aspirin, statins, Plavix, and beta blockers. We will continue with pain control as well as GI and DVT prophylaxis. Patient seemed be resting comfortably with no major complaints. The patient could move out of the ICU today. Objective - Vital Signs Vital signs: Vital Signs Temp 98.4 F 12/14/20 08:06 Pulse 87 12/14/20 10:00 Resp 24 12/14/20 10:00 BP 131/65 12/14/20 10:00 Pulse Ox 94 L 12/14/20 10:00 Intake & Output 12/13/20 12/14/20 12/14/20 18:59 06:59 18:59 Intake Total 429 963 132 Output Total 800 475 150 Balance -371 488 -18 Weight 118.5 kg Intake: IV 429 363 132 Lactated Ringers 1,000 ml 390 330 120 @ 20 mls/hr IV .Q24H JORDIN Rx#:[id number] pressure bag 39 33 12 Oral 600 Output: Urine 800 475 125 Post Void Residual 25 Other: Voiding Method Urinal Urinal # Voids 0 1 1 # Bowel Movements 1 ABP, PAP, CO, CI - Last Documented Arterial Blood Pressure 110/47 Pulmonary Artery Pressure 27/9 Cardiac Output 5.8 Cardiac Index 2.4 - Exam No acute distress, oriented 3. HEENT examination is grossly unremarkable. Mucous membranes are moist. No oral lesions. Neck supple. Full range of motion. No adenopathy thyromegaly or neck vein distention. Cardiovascular examination reveals regular rhythm rate. S1-S2 normal. No S3 or S4. No discernible murmur noted. Heart rate is 87 bpm. Lungs reveal clear breath sounds. Her sounds are equal bilaterally. No adventitious lung sounds including wheezes rhonchi or crackles. Abdomen soft bowel sounds are heard. No masses or tenderness. Extremities are intact. No cyanosis clubbing or edema. Skin is without rash or lesion. Neurologic examination is brief but nonfocal. - Labs CBC & Chem 7: 12/14/20 03:39 12/14/20 03:39 Labs: Abnormal Lab Results - Last 24 Hours (Table) 12/13/20 12/13/20 12/13/20 Range/Units 11:28 17:00 19:53 WBC (3.8-10.6) k/uL RBC (4.30-5.90) m/uL Hgb (13.0-17.5) gm/dL Hct (39.0-53.0) % Neutrophils # (1.3-7.7) k/uL Monocytes # (0-1.0) k/uL Sodium (137-145) mmol/L BUN (9-20) mg/dL Creatinine (0.66-1.25) mg/dL Glucose (74-99) mg/dL POC Glucose (mg/dL) 138 H 152 H 182 H (75-99) mg/dL Calcium (8.4-10.2) mg/dL Magnesium (1.6-2.3) mg/dL Total Protein (6.3-8.2) g/dL Albumin (3.5-5.0) g/dL 12/14/20 12/14/20 12/14/20 Range/Units 03:39 03:39 06:53 WBC 17.3 H (3.8-10.6) k/uL RBC 2.36 L (4.30-5.90) m/uL Hgb 7.9 L (13.0-17.5) gm/dL Hct 22.4 L (39.0-53.0) % Neutrophils # 14.3 H (1.3-7.7) k/uL Monocytes # 1.4 H (0-1.0) k/uL Sodium 132 L (137-145) mmol/L BUN 42 H (9-20) mg/dL Creatinine 1.29 H (0.66-1.25) mg/dL Glucose 136 H (74-99) mg/dL POC Glucose (mg/dL) 146 H (75-99) mg/dL Calcium 7.8 L (8.4-10.2) mg/dL Magnesium 2.8 H (1.6-2.3) mg/dL Total Protein 5.3 L (6.3-8.2) g/dL Albumin 2.9 L (3.5-5.0) g/dL Assessment and Plan Assessment: Postop day #4, status post four-vessel bypass grafting, for coronary artery disease. Routine postoperative ventilator management. History of benign essential hypertension. History of hyperlipidemia. Lifelong nontobacco user. History of bilateral internal carotid artery disease. Strong family history of premature coronary disease. Postoperative atelectasis, improved, expected. Postoperative atrial fibrillation, controlled. Plan: Plan dated 12/14/2020. The patient should continue with hourly use of incentive spirometer, as well as deep breathing, coughing, and clearing of secretions. We will continue to ambulate the patient as tolerated, continue aspirin, statins, Plavix, beta blockers, and pain control. The patient's chest x-ray will be monitored on a daily basis. Obviously, we'll continue with GI and DVT prophylaxis and continue to follow the patient successfully through his hospital discharge. She is stable enough to be potentially transferred out of the intensive care unit. We'll leave that up to cardiothoracic surgery. No additional recommendations are made at this time. Time with Patient: Less than 30
[2020-12-14 11:27] LABS: Glucose,Whole Blood 140 mg/dL (75-99)
[2020-12-14] MEDS: MIDODRINE 5 MG TAB PO SCH ×2 (12:24→17:11)
[2020-12-14] MEDS: SODIUM FERRIC GLUCONAT-SUCROSE 125 MG in SODIUM CHLORIDE 0.9% 100 ML IVPB SCH (13:35)
[2020-12-14 16:37] LABS: Glucose,Whole Blood 136 mg/dL (75-99)
--- NOTE | 2020-12-14 18:33 | PN ---
PROGRESS NOTE This 70-year-old white male with coronary artery disease status post CABG. Continues on beta marcus and aspirin, statin, Plavix. He is moved out of the ICU. He is on the regular floor. Temperature 98.4, pulse 87, respiratory 18 to 24, blood pressure 130s over 60s. O2 94. Cardiovascular S1, S2. Lungs transmitted upper sounds. Neck is supple. White count 17.3, hemoglobin 7.9, sodium 132, potassium 4.1, BUN is 42, creatinine 1.29. ASSESSMENT: 1. Postop day 4 CABG x4. 2. Status post vent management. 3. Hypertension. 4. Dyslipidemia. 5. Nicotine addiction. 6. Bilateral internal carotid artery stenosis. 7. Postoperative atelectasis. 8. Atrial fibrillation. Should continue aspirin, statins, Plavix, beta blockers. He is doing stable at this point. Follow up in the next 24 to 48 hours. MMODL / IJN: [id number] /
[2020-12-14] MEDS: BENZOCAINE/MENTHOL LOZENG 1 EACH LOZENGE MUCOUS MEM PRN (19:57)
[2020-12-14] MEDS: APIXABAN 5 MG TAB PO SCH (19:58)
[2020-12-14] MEDS: SENNOSIDES-DOCUSATE SODIUM 1 EACH TAB PO SCH (19:58)
[2020-12-14] MEDS: MELATONIN 3 MG TABLET PO PRN (19:58)
[2020-12-14 20:19] LABS: Glucose,Whole Blood 174 mg/dL (75-99)
[2020-12-15] MEDS: DILTIAZEM ORAL 30 MG TAB PO SCH ×4 (05:09→23:46)
[2020-12-15 05:44] LABS: Glucose,Whole Blood 133 mg/dL (75-99)
[2020-12-15] MEDS: METOPROLOL TARTRATE 25 MG TAB PO SCH ×3 (06:03→22:52)
[2020-12-15] MEDS: PANTOPRAZOLE 40 MG TABLET PO SCH (06:03)
[2020-12-15] MEDS: INSULIN ASPART (NovoLOG) 100 UNIT/ML VIAL SQ SCH ×4 (06:03→20:04)
[2020-12-15] MEDS: MIDODRINE 5 MG TAB PO SCH ×3 (06:03→16:55)
[2020-12-15] MEDS: IPRATROPIUM-ALBUTEROL 3 ML NEB INHALATION SCH ×4 (07:59→20:07)
--- NOTE | 2020-12-15 08:19 | XR ---
EXAMINATION TYPE: XR chest 2V DATE OF EXAM: 12/15/2020 COMPARISON: Chest x-ray 12/14/2020 HISTORY: Post cardiac surgery TECHNIQUE: Frontal and lateral views of the chest are obtained. FINDINGS: Patient is post median sternotomy. There are overlying leads. Left atrial appendage clippi ng placement is noted. No evident pneumothorax or sizable effusion. There are overlying artifacts. Ca rdiac mediastinal silhouette is stable. Patchy densities present at the lung bases. IMPRESSION: Some residual atelectasis is noted, difficult to exclude minimal pleural fluid.
[2020-12-15 08:32] LABS: Basophils % (A) 0 %; Eosinophils # (A) 0.1 k/uL (0-0.7); Eosinophils % (A) 0 %; HCT 25.4 % (39.0-53.0); HGB 8.4 gm/dL (13.0-17.5); Hypochromasia Slight; Lymphocytes # (A) 1.5 k/uL (1.0-4.8); Lymphocytes % (A) 8 %; MCH 32.7 pg (25.0-35.0); MCHC 33.2 g/dL (31.0-37.0); MCV 98.5 fL (80.0-100.0); Mean Platelet Volume 7.5; Monocytes # (A) 1.3 k/uL (0-1.0); Monocytes % (A) 7 %; Neutrophils # (A) 14.6 k/uL (1.3-7.7); Neutrophils % (A) 82 %; Platelet Count 298 k/uL (150-450); RBC 2.58 m/uL (4.30-5.90); RDW 13.4 % (11.5-15.5); WBC 17.8 k/uL (3.8-10.6)
[2020-12-15 08:41] LABS: Albumin 3.4 g/dL (3.5-5.0); Calcium 7.9 mg/dL (8.4-10.2); Total Bilirubin 0.8 mg/dL (0.2-1.3)
[2020-12-15] MEDS: ATORVASTATIN 80 MG TAB PO SCH (08:44)
[2020-12-15] MEDS: MULTIVITAMINS, THERA 1 EACH TAB PO SCH (08:44)
[2020-12-15] MEDS: ASPIRIN 81 MG PO SCH (08:44)
[2020-12-15] MEDS: TAMSULOSIN 0.4 MG CAP.ER.24H PO SCH (08:44)
[2020-12-15] MEDS: APIXABAN 5 MG TAB PO SCH ×2 (08:45→20:04)
[2020-12-15] MEDS: AMIODARONE 200 MG TAB PO SCH ×3 (08:46→20:04)
[2020-12-15] MEDS: SODIUM FERRIC GLUCONAT-SUCROSE 125 MG in SODIUM CHLORIDE 0.9% 100 ML IVPB SCH (08:51)
[2020-12-15] MEDS ORDERED: FUROSEMIDE 10 MG/ML 2 ML VIAL IV STA (09:35)
--- NOTE | 2020-12-15 09:44 | P.PN ---
Subjective Progress Note Date: 12/15/20 Principal diagnosis: Coronary artery disease with left main disease, unstable angina. Previous medical history of hypertension, hyperlipidemia, enlarged prostate, never smoker, bilateral internal carotid artery stenosis, and family history of premature coronary artery disease POD #5 coronary artery bypass grafting 4 vessels, left internal mammary artery to the left anterior descending artery, radial artery to the obtuse marginal artery, reverse saphenous vein graft to the diagonal artery, reverse saphenous vein graft to the distal right coronary artery, endoscopic harvesting of the left greater saphenous vein, endoscopic harvest of the left radial artery, epi- aortic ultrasound, intraoperative transesophageal echocardiogram, ligation of the left atrial appendage using a 35 mm AtriCure clip. Atrial fibrillation, known complication of open-heart surgery The patient's currently sitting up in a recliner on the cardiac stepdown unit in no acute distress. States postoperative pain controlled on current medication regimen, complains of shortness of breath with activity. Actively using incentive spirometer. Continues to be in controlled atrial fibrillation, hemod ynamically stable. He does have a generalized edema. Received first postop shower yesterday. He continues to need a lot of encouragement for any movement whatsoever as he would prefer to stay sitting in the recliner and letting other people do things for him. Strongly encouraged increase activity, this was discussed in detail with his . Objective - Vital Signs Vital signs: Vital Signs Temp 97.9 F 12/15/20 08:00 Pulse 108 H 12/15/20 08:10 Resp 22 12/15/20 08:00 BP 122/45 12/15/20 08:00 Pulse Ox 96 12/15/20 08:00 Intake & Output 12/14/20 12/15/20 12/15/20 18:59 06:59 18:59 Intake Total 938 240 Output Total 750 551 150 Balance 188 -551 90 Weight 117.7 kg Intake: IV 198 Lactated Ringers 1,000 ml 180 @ 20 mls/hr IV .Q24H JORDIN Rx#:[id number] pressure bag 18 Intake, IV Titration 200 Amount Sodium Ferric Gluconat- 200 Sucrose 125 mg In Sodium Chloride 0.9% 100 ml @ 100 mls/hr IVPB DAILY JORDIN Rx#:[id number] Oral 540 240 Output: Urine 725 550 150 Post Void Residual 25 Stool 0 1 Other: Voiding Method Urinal Urinal # Voids 0 1 1 # Bowel Movements 1 ABP, PAP, CO, CI - Last Documented Arterial Blood Pressure 110/47 Pulmonary Artery Pressure 27/9 Cardiac Output 5.8 Cardiac Index 2.4 - Constitutional General appearance: Present: no acute distress, obese - Respiratory Details: Lungs sounds diminished bilaterally. Respirations even, nonlabored. Currently on 2 L nasal cannula with oxygen saturation 96%. Able to achieve 1500 mL on his incentive spirometry. Stronger cough - Cardiovascular Details: S1, S2 present. Irregular rate and rhythm, controlled atrial fibrillation on telemetry. Sternum stable. Palpable peripheral pulses bilaterally. Generalized edema present. No calf pain or tenderness noted. Heart hugger in place with patient demonstrating appropriate use. Antiembolism stockings, SCDs present. - Gastrointestinal Gastrointestinal Comment(s): Abdomen soft, nontender, nondistended. Active bowel sounds present 4 quadran ts. Tolerating minimal diet. Positive bowel movement yesterday and today - Genitourinary Genitourinary Comment(s): Continues to void clear, yellow urine, output 1275 mL the last 24 hours without residual per bladder scan. - Integumentary Integumentary Comment(s): Skin is warm and dry with evidence of good perfusion. Anterior chest incision well approximated. Left lower extremity EVH site well approximated without redness or drainage. Left radial artery harvest site well approximated without redness or drainage. Patient is able to wiggle his fingers and operations representative appropriately. - Neurologic Neurologic: Present: CNII-XII intact - Musculoskeletal Musculoskeletal: Present: gait normal, strength equal bilaterally - Psychiatric Psychiatric Comment(s): Flat affect Psychiatric: Present: A&O x's 3 - Allied health notes Allied health notes reviewed: nursing - Labs CBC & Chem 7: 12/15/20 07:18 12/15/20 07:18 Labs: Abnormal Lab Results - Last 24 Hours (Table) 12/14/20 12/14/20 12/14/20 Range/Units 11:26 16:35 20:18 WBC (3.8-10.6) k/uL RBC (4.30-5.90) m/uL Hgb (13.0-17.5) gm/dL Hct (39.0-53.0) % Neutrophils # (1.3-7.7) k/uL Monocytes # (0-1.0) k/uL Sodium (137-145) mmol/L Carbon Dioxide (22-30) mmol/L BUN (9-20) mg/dL Glucose (74-99) mg/dL POC Glucose (mg/dL) 140 H 136 H 174 H (75-99) mg/dL Calcium (8.4-10.2) mg/dL Total Protein (6.3-8.2) g/dL Albumin (3.5-5.0) g/dL 12/15/20 12/15/20 12/15/20 Range/Units 05:43 07:18 07:18 WBC 17.8 H (3.8-10.6) k/uL RBC 2.58 L (4.30-5.90) m/uL Hgb 8.4 L (13.0-17.5) gm/dL Hct 25.4 L (39.0-53.0) % Neutrophils # 14.6 H (1.3-7.7) k/uL Monocytes # 1.3 H (0-1.0) k/uL Sodium 136 L (137-145) mmol/L Carbon Dioxide 21 L (22-30) mmol/L BUN 47 H (9-20) mg/dL Glucose 131 H (74-99) mg/dL POC Glucose (mg/dL) 133 H (75-99) mg/dL Calcium 7.9 L (8.4-10.2) mg/dL Total Protein 6.0 L (6.3-8.2) g/dL Albumin 3.4 L (3.5-5.0) g/dL - Imaging and Cardiology Chest x-ray: report reviewed, image reviewed Assessment and Plan Assessment: 1. Coronary artery disease with left main disease, unstable angina, status post four-vessel CABG 2. Hypertension 3. Hyperlipidemia, treated, cholesterol 95, LDL 47 4. Enlarged prostate, treated 5. Never smoker, preoperative FEV1 91% of predicted 6. Bilateral internal carotid artery stenosis, 65-70% on the right and near 75% on the left per angiography, asymptomatic 7. Family history of premature coronary artery disease 8. Atrial fibrillation, known complication of open-heart surgery, status post left atrial appendage ligation Plan: 1. Continue low-dose aspirin, statin, beta marcus therapy. Will increase beta marcus therapy as tolerated, increased to 25 mg every 8 hours today. 2. Continue oral Cardizem for radial artery spasm. Do not discontinue CCB with out discussing with cardio thoracic surgery 3. Continue amiodarone. Continue Eliquis for anticoagulation 4. Encourage incentive spirometry use 10 times every hour while awake. Bronchodilators per pulmonology 5. Increase activity, ambulate as tolerated. PT/OT/cardiac rehab consulted. He needs much encouragement to ambulate, should ambulate minimum 4 times in the hallway today 6. Will monitor daily labs and x-rays. Electrolyte replacement per protocol. Will give 20 mg IV push Lasix today 7. GI/DVT prophylaxis 8. Pain control with current medication regimen. 9. Insulin management per primary care service. Patient is not diabetic, preoperative A1c 5.7% 10. Strict accurate intake and output. 11. Daily weights. 12. Discharge planning in progress. Anticipate discharge to home with home care soon 13. More recommendations to follow Time with Patient: Greater than 30
[2020-12-15] MEDS: ONDANSETRON 4 MG/2 ML VIAL IVP PRN (10:17)
[2020-12-15] MEDS ORDERED: ALPRAZolam 0.25 MG TAB PO PRN (10:33)
[2020-12-15 11:37] LABS: Glucose,Whole Blood 150 mg/dL (75-99)
--- NOTE | 2020-12-15 12:14 | P.PN ---
Subjective This is a pleasant 70-year-old male s/p bypass grafting with CASH-LAD, radial artery-OM, SVG-dx and SVG-RCA. He is seen and examined sitting up in the recliner in no acute distress. He complains of chest pain when he tries to take a deep breath at the site of his incision. Repeat EKG reveals left bundle branch block with underlying atrial fibrillation. He has not been up and moving much since surgery. He denies shortness of breath, dizziness or palpitations. Blood pressure 122/45 heart rate 99 afebrile and maintaining oxygen saturation on nasal cannula. CT surgery has ordered a one time dose of IV lasix this morning. Chest xray shows some residual atelectasis with minimal pleural fluid noted. Laboratory data reviewed, WBC 17.8, hemoglobin 8.4, platelets 298, sodium 136, potassium 4.0, creatinine 1.19. Currently maintained on amiodarone 200 mg twice a day, Eliquis 5 mg twice a day, aspirin 81 mg daily, atorvastatin 80 mg daily, diltiazem 30 mg 4 times a day and Lopressor 25 mg 3 times a day. GENERAL: Well-appearing, well-nourished and in no acute distress. NECK: Supple without JVD or thyromegaly. LUNGS: Breath sounds clear to auscultation bilaterally. Respiration equal and unlabored. No wheezes, rales or rhonchi. Diminished bilaterally. HEART: Irregular rate and rhythm without murmurs, rubs or gallops. S1 and S2 h eard. Heart hugger in place. Incision noted to be intact with no drainage. EXTREMITIES: Normal range of motion, trace edema. No clubbing or cyanosis. Peripheral pulses intact. ASSESSMENT Coronary artery disease s/p bypass grafting POD#5 Hypertension Dyslipidemia New onset paroxysmal atrial fibrillation with variable ventricular rates Leuckocytosis PLAN Increase amiodarone to 200 mg TID for more optimal rate control and hopeful conversion to SR. Discussed with CT surgery increasing lorpessor as tolerated. Further recommendations to follow based on clinical course. Nurse Practitioner note has been reviewed, I agree with a documented findings and plan of care. Patient was seen and examined. Objective - Vital Signs Vital signs: Vital Signs Temp 97.9 F 12/15/20 08:00 Pulse 99 12/15/20 11:40 Resp 22 12/15/20 08:00 BP 122/45 12/15/20 08:00 Pulse Ox 96 12/15/20 08:00 Intake & Output 12/14/20 12/15/20 12/15/20 18:59 06:59 18:59 Intake Total 938 240 Output Total 750 551 450 Balance 188 -551 -210 Weight 117.7 kg Intake: IV 198 Lactated Ringers 1,000 ml 180 @ 20 mls/hr IV .Q24H JORD[facility] Rx#:[id number] pressure bag 18 Intake, IV Titration 200 Amount Sodium Ferric Gluconat- 200 Sucrose 125 mg In Sodium Chloride 0.9% 100 ml @ 100 mls/hr IVPB DAILY JORDIN Rx#:[id number] Oral 540 240 Output: Urine 725 550 450 Post Void Residual 25 Stool 0 1 Other: Voiding Method Urinal Urinal # Voids 0 1 1 # Bowel Movements 1 ABP, PAP, CO, CI - Last Documented Arterial Blood Pressure 110/47 Pulmonary Artery Pressure 27/9 Cardiac Output 5.8 Cardiac Index 2.4 - Labs CBC & Chem 7: 12/15/20 07:18 12/15/20 07:18 Labs: Abnormal Lab Results - Last 24 Hours (Table) 12/14/20 12/14/20 12/15/20 Range/Units 16:35 20:18 05:43 WBC (3.8-10.6) k/uL RBC (4.30-5.90) m/uL Hgb (13.0-17.5) gm/dL Hct (39.0-53.0) % Neutrophils # (1.3-7.7) k/uL Monocytes # (0-1.0) k/uL Sodium (137-145) mmol/L Carbon Dioxide (22-30) mmol/L BUN (9-20) mg/dL Glucose (74-99) mg/dL POC Glucose (mg/dL) 136 H 174 H 133 H (75-99) mg/dL Calcium (8.4-10.2) mg/dL Total Protein (6.3-8.2) g/dL Albumin (3.5-5.0) g/dL 12/15/20 12/15/20 12/15/20 Range/Units 07:18 07:18 11:35 WBC 17.8 H (3.8-10.6) k/uL RBC 2.58 L (4.30-5.90) m/uL Hgb 8.4 L (13.0-17.5) gm/dL Hct 25.4 L (39.0-53.0) % Neutrophils # 14.6 H (1.3-7.7) k/uL Monocytes # 1.3 H (0-1.0) k/uL Sodium 136 L (137-145) mmol/L Carbon Dioxide 21 L (22-30) mmol/L BUN 47 H (9-20) mg/dL Glucose 131 H (74-99) mg/dL POC Glucose (mg/dL) 150 H (75-99) mg/dL Calcium 7.9 L (8.4-10.2) mg/dL Total Protein 6.0 L (6.3-8.2) g/dL Albumin 3.4 L (3.5-5.0) g/dL
--- NOTE | 2020-12-15 14:28 | P.PN ---
Subjective Progress Note Date: 12/15/20 Principal diagnosis: Coronary artery disease 70-year-old male who is postoperative day #4, status post four-vessel bypass grafting. The patient is doing relatively well. He does have a history of benign essential hypertension, hyperlipidemia, bilateral internal carotid artery disease, strong family history of premature coronary disease, postoperative atelectasis, and postoperative atrial fibrillation. Currently, the patient is not receiving any supplemental oxygen. Is getting saline keep vein open. We are encouraging the patient to deep breathe, cough, and clear secretions, and using incentive spirometer every hour. Patient should continue on his aspirin, statins, Plavix, and beta blockers. We will continue with pain control as well as GI and DVT prophylaxis. Patient seemed be resting comfortably with no major complaints. The patient could move out of the ICU today. On 12/15/2020 patient seen in follow-up on selective care unit, patient states he feels a little bit more short of breath today, especially with exertion, he was given a dose of Lasix, he is been frequently going to the bathroom. He remains in A. fib with a controlled rate, he does have some mild generalized edema. 2 L of oxygen with pulse ox of 98%, no fever chills, blood pressure is stable. Today's chest x-ray shows some residual atelectasis, possible minimal pleural fluid. His labs have been reviewed today, showing white blood cell count of 17.8, hemoglobin is 8.4, sodium is 136, potassium is 4.0, BUN is 47, creatinine has improved and is down to 1.19. Patient is on oral Cardizem and amiodarone for rate control medications. He was started on Eliquis for anticoagulation. Objective - Vital Signs Vital signs: Vital Signs Temp 98.7 F 12/15/20 12:00 Pulse 109 H 12/15/20 12:00 Resp 22 12/15/20 12:00 BP 125/62 12/15/20 12:00 Pulse Ox 98 12/15/20 12:00 Intake & Output 12/14/20 12/15/20 12/15/20 18:59 06:59 18:59 Intake Total 938 480 Output Total 750 551 850 Balance 355 -041 -597 Weight 117.7 kg Intake: IV 198 Lactated Ringers 1,000 ml 180 @ 20 mls/hr IV .Q24H JORDIN Rx#:[id number] pressure bag 18 Intake, IV Titration 200 Amount Sodium Ferric Gluconat- 200 Sucrose 125 mg In Sodium Chloride 0.9% 100 ml @ 100 mls/hr IVPB DAILY JORDIN Rx#:[id number] Oral 540 480 Output: Urine 725 550 850 Post Void Residual 25 Stool 0 1 Other: Voiding Method Urinal Urinal Toilet Urinal # Voids 0 1 1 # Bowel Movements 1 1 ABP, PAP, CO, CI - Last Documented Arterial Blood Pressure 110/47 Pulmonary Artery Pressure 27/9 Cardiac Output 5.8 Cardiac Index 2.4 - Exam GENERAL EXAM: Alert, very pleasant, 70-year-old white male, on 2 L of oxygen with pulse ox of 98% comfortable in no apparent distress. HEAD: Normocephalic/atraumatic. EYES: Normal reaction of pupils, equal size. Conjunctiva pink, sclera white. NOSE: Clear with pink turbinates. THROAT: No erythema or exudates. NECK: No masses, no JVD, no thyroid enlargement, no adenopathy. CHEST: No chest wall deformity. Symmetrical expansion. Sternal incision is clean dry and intact, chest tube sites clean dry intact LUNGS: Equal air entry with no crackles, wheeze, rhonchi or dullness. CVS: Regular rate and rhythm, normal S1 and S2, no gallops, no murmurs, no rubs ABDOMEN: Soft, nontender. No hepatosplenomegaly, normal bowel sounds, no guarding or rigidity. EXTREMITIES: No clubbing, generalized edema involving his upper and lower extremities, no cyanosis, 2+ pulses and upper and lower extremities. MUSCULOSKELETAL: Muscle strength and tone normal. SPINE: No scoliosis or deformity SKIN: No rashes CENTRAL NERVOUS SYSTEM: Alert and oriented -3. No focal deficits, tone is normal in all 4 extremities. PSYCHIATRIC: Alert and oriented -3. Appropriate affect. Intact judgment and insight. - Labs CBC & Chem 7: 12/15/20 07:18 12/15/20 07:18 Labs: Abnormal Lab Results - Last 24 Hours (Table) 12/14/20 12/14/20 12/15/20 Range/Units 16:35 20:18 05:43 WBC (3.8-10.6) k/uL RBC (4.30-5.90) m/uL Hgb (13.0-17.5) gm/dL Hct (39.0-53.0) % Neutrophils # (1.3-7.7) k/uL Monocytes # (0-1.0) k/uL Sodium (137-145) mmol/L Carbon Dioxide (22-30) mmol/L BUN (9-20) mg/dL Glucose (74-99) mg/dL POC Glucose (mg/dL) 136 H 174 H 133 H (75-99) mg/dL Calcium (8.4-10.2) mg/dL Total Protein (6.3-8.2) g/dL Albumin (3.5-5.0) g/dL 12/15/20 12/15/20 12/15/20 Range/Units 07:18 07:18 11:35 WBC 17.8 H (3.8-10.6) k/uL RBC 2.58 L (4.30-5.90) m/uL Hgb 8.4 L (13.0-17.5) gm/dL Hct 25.4 L (39.0-53.0) % Neutrophils # 14.6 H (1.3-7.7) k/uL Monocytes # 1.3 H (0-1.0) k/uL Sodium 136 L (137-145) mmol/L Carbon Dioxide 21 L (22-30) mmol/L BUN 47 H (9-20) mg/dL Glucose 131 H (74-99) mg/dL POC Glucose (mg/dL) 150 H (75-99) mg/dL Calcium 7.9 L (8.4-10.2) mg/dL Total Protein 6.0 L (6.3-8.2) g/dL Albumin 3.4 L (3.5-5.0) g/dL Assessment and Plan Plan: Assessment: #1. Coronary artery disease status post four-vessel bypass grafting, postoperative day #5 #2. Routine postoperative ventilator management, currently patient is on 2 L of oxygen, doing well #3. History of benign essential hypertension #4. History of hyperlipidemia #5. Lifelong nontobacco user #6. History of bilateral internal carotid artery disease #7. Strong family history of premature coronary disease #8. Postoperative atelectasis, improved, expected #9. Postoperative atrial fibrillation, controlled, patient has been started on oral Cardizem and oral amiodarone, and Eliquis for anticoagulation Plan: Continue current medical treatment, continue encouraging deep breathing and coughing, incentive spirometry use, ambulation. Continue breathing treatments. Patient is mildly generally swollen, was given a dose of IV Lasix. Remains in A. fib with a controlled rate, continue oral anticoagulation and rate control medications per cardiology and CT surgery. No acute events overnight. We'll continue to follow along with CT surgery I performed a history & physical examination of the patient and discussed their management with my nurse practitioner, Kristin Payton. I reviewed the nurse practitioner's note and agree with the documented findings and plan of care. Lung sounds are positive for diminished breath sounds. The findings and the impression was discussed with the patient. I attest to the documentation by the nurse practitioner. Time with Patient: Less than 30
[2020-12-15] MEDS ORDERED: METOPROLOL TARTRATE 25 MG TAB PO SCH ×2 (16:00→23:00)
[2020-12-15 16:33] LABS: Glucose,Whole Blood 141 mg/dL (75-99)
--- NOTE | 2020-12-15 19:41 | PN ---
PROGRESS NOTE This is a 70-year-old white male moved to the regular telemetry floor out of the ICU. His creatinine is down to 1.19. He is on oral Cardizem, amiodarone, started on anticoagulation with Eliquis . He looks weak, fatigued. Lungs are clear. CARDIOVASCULAR: S1, S2. White count 17.8, hemoglobin 8.4. ASSESSMENT: 1. Coronary artery disease status post 4-vessel coronary artery bypass grafting surgery. 2. Carotid stenosis. 3. Bilateral internal carotid artery disease. 4. Dyslipidemia. 5. Obesity. 6. Hypertension. 7. Atrial fibrillation. Continue with Cardizem, amiodarone, Eliquis, breathing treatments. He is going to get a dose of Lasix today. Continue current treatments. Prognosis guarded. MMODL / IJN: [id number] /
[2020-12-15 19:58] LABS: Glucose,Whole Blood 183 mg/dL (75-99)
[2020-12-15] MEDS: MELATONIN 3 MG TABLET PO PRN (20:03)
[2020-12-15] MEDS: SENNOSIDES-DOCUSATE SODIUM 1 EACH TAB PO SCH (20:04)
[2020-12-15] MEDS: BENZOCAINE/MENTHOL LOZENG 1 EACH LOZENGE MUCOUS MEM PRN (22:52)
[2020-12-16] MEDS: DILTIAZEM ORAL 30 MG TAB PO SCH ×4 (05:23→23:15)
[2020-12-16] MEDS: PANTOPRAZOLE 40 MG TABLET PO SCH (05:59)
[2020-12-16] MEDS: METOPROLOL TARTRATE 25 MG TAB PO SCH (05:59)
[2020-12-16] MEDS: MIDODRINE 5 MG TAB PO SCH ×3 (05:59→17:47)
[2020-12-16 06:25] LABS: Glucose,Whole Blood 121 mg/dL (75-99)
[2020-12-16] MEDS: INSULIN ASPART (NovoLOG) 100 UNIT/ML VIAL SQ SCH ×4 (06:44→21:08)
[2020-12-16 07:37] LABS: Basophils % (A) 0 %; Eosinophils # (A) 0.1 k/uL (0-0.7); Eosinophils % (A) 1 %; HCT 23.4 % (39.0-53.0); HGB 7.6 gm/dL (13.0-17.5); Lymphocytes # (A) 1.4 k/uL (1.0-4.8); Lymphocytes % (A) 9 %; MCH 32.1 pg (25.0-35.0); MCHC 32.3 g/dL (31.0-37.0); MCV 99.3 fL (80.0-100.0); Mean Platelet Volume 7.5; Monocytes # (A) 1.3 k/uL (0-1.0); Monocytes % (A) 8 %; Neutrophils # (A) 12.4 k/uL (1.3-7.7); Neutrophils % (A) 79 %; Platelet Count 393 k/uL (150-450); RBC 2.36 m/uL (4.30-5.90); RDW 13.8 % (11.5-15.5); WBC 15.6 k/uL (3.8-10.6)
[2020-12-16 07:55] LABS: Albumin 3.1 g/dL (3.5-5.0); Calcium 7.7 mg/dL (8.4-10.2); Magnesium 2.7 mg/dL (1.6-2.3); Potassium 3.8 mmol/L (3.5-5.1); Total Bilirubin 0.9 mg/dL (0.2-1.3); Total Protein 5.8 g/dL (6.3-8.2)
[2020-12-16] MEDS ORDERED: FUROSEMIDE 10 MG/ML 2 ML VIAL IV STA (08:19)
--- NOTE | 2020-12-16 08:22 | XR ---
EXAMINATION TYPE: XR chest 2V DATE OF EXAM: 12/16/2020 COMPARISON: Prior chest x-ray 12-15-20 HISTORY: Post cardiac surgery TECHNIQUE: Frontal and lateral views of the chest are obtained. FINDINGS: Cardiac mediastinal silhouette is stable. Patient is post median sternotomy and left atria l appendage clipping placement. Bibasilar atelectatic changes again noted. No pneumothorax or pleural effusion. IMPRESSION: Probable basilar atelectasis, difficult to exclude minimal effusion
[2020-12-16] MEDS ORDERED: POTASSIUM CHLORIDE ER 20 MEQ TAB.ER PO STA (08:25)
[2020-12-16] MEDS: SODIUM FERRIC GLUCONAT-SUCROSE 125 MG in SODIUM CHLORIDE 0.9% 100 ML IVPB SCH (08:26)
[2020-12-16] MEDS: TAMSULOSIN 0.4 MG CAP.ER.24H PO SCH (08:26)
[2020-12-16] MEDS: APIXABAN 5 MG TAB PO SCH ×2 (08:26→21:08)
[2020-12-16] MEDS: MULTIVITAMINS, THERA 1 EACH TAB PO SCH (08:26)
[2020-12-16] MEDS: AMIODARONE 200 MG TAB PO SCH ×3 (08:26→22:08)
[2020-12-16] MEDS: ASPIRIN 81 MG PO SCH (08:26)
[2020-12-16] MEDS: ONDANSETRON 4 MG/2 ML VIAL IVP PRN (08:37)
[2020-12-16] MEDS: ATORVASTATIN 40 MG TAB PO SCH (08:37)
[2020-12-16] MEDS: IPRATROPIUM-ALBUTEROL 3 ML NEB INHALATION SCH ×4 (09:01→20:37)
--- NOTE | 2020-12-16 09:32 | P.PN ---
Subjective Progress Note Date: 12/16/20 Principal diagnosis: Coronary artery disease with left main disease, unstable angina. Previous medical history of hypertension, hyperlipidemia, enlarged prostate, never smoker, bilateral internal carotid artery stenosis, and family history of premature coronary artery disease POD #6 coronary artery bypass grafting 4 vessels, left internal mammary artery to the left anterior descending artery, radial artery to the obtuse marginal artery, reverse saphenous vein graft to the diagonal artery, reverse saphenous vein graft to the distal right coronary artery, endoscopic harvesting of the left greater saphenous vein, endoscopic harvest of the left radial artery, epi- aortic ultrasound, intraoperative transesophageal echocardiogram, ligation of the left atrial appendage using a 35 mm AtriCure clip. Atrial fibrillation, known complication of open-heart surgery The patient's currently sitting up in a recliner on the cardiac stepdown unit in no acute distress. Had an episode yesterday where he complained of increased shortness of breath and chest pain, EKG obtained without any acute ischemic changes, resolved without treatment. Patient did state later that he felt be tter after IV Lasix. Actively using incentive spirometer. Continues to be in atrial fibrillation with heart rate in the high 90s to low 100s, hemodynamically stable. He does have a generalized edema which has decreased since yesterday. He continues to need a lot of encouragement for any movement whatsoever as he would prefer to stay sitting in the recliner and letting other people do things for him. Strongly encouraged increase activity, this was discussed in detail with the patient and his . Upon assessment this morning he was asking to go home today, was instructed to walk in the hallway minimum 4 times and shower, needs to be safe to go home. Patient verbalizes understanding and agreement, however getting up to get into the shower the patient had another episode of shortness of breath and chest pain. Again no changes in his heart rate or rhythm, medications continued to be adjusted. Objective - Vital Signs Vital signs: Vital Signs Temp 97.3 F L 12/16/20 08:00 Pulse 102 H 12/16/20 09:13 Resp 20 12/16/20 08:00 BP 146/66 12/16/20 08:00 Pulse Ox 94 L 12/16/20 08:00 Intake & Output 12/15/20 12/16/20 12/16/20 18:59 06:59 18:59 Intake Total 720 236 Output Total 1000 170 Balance -280 -170 236 Weight 118.2 kg Intake: Oral 720 236 Output: Urine 1000 170 Other: Voiding Method Toilet Toilet Urinal Urinal # Voids 1 2 1 # Bowel Movements 1 1 ABP, PAP, CO, CI - Last Documented Arterial Blood Pressure 110/47 Pulmonary Artery Pressure 27/9 Cardiac Output 5.8 Cardiac Index 2.4 - Constitutional General appearance: Present: no acute distress, obese - Respiratory Details: Lungs sounds diminished bilaterally. Respirations even, nonlabored. Currently on room air with oxygen saturation 94%. Able to achieve 1500 mL on his incentive spirometry. Stronger cough - Cardiovascular Details: S1, S2 present. Irregular rate and rhythm, atrial fibrillation on telemetry with heart rate in the high 90s to low 100s. Sternum stable. Palpable peripheral pulses bilaterally. Generalized edema present but less than yesterday. No calf pain or tenderness noted. Heart hugger in place with patient demonstrating appropriate use. Antiembolism stockings, SCDs present. - Gastrointestinal Gastrointestinal Comment(s): Abdomen soft, nontender, nondistended. Active bowel sounds present 4 quadrants. Tolerating minimal diet. Positive bowel movement yesterday - Genitourinary Genitourinary Comment(s): Continues to void clear, yellow urine, output 1170 mL the last 24 hours - Integumentary Integumentary Comment(s): Skin is warm and dry with evidence of good perfusion. Anterior chest incision well approximated. Left lower extremity EVH site well approximated without redness or drainage. Left radial artery harvest site well approximated without redness or drainage. 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 - Neurologic Neurologic: Present: CNII-XII intact - Musculoskeletal Musculoskeletal: Present: gait normal, strength equal bilaterally - Psychiatric Psychiatric Comment(s): Flat affect Psychiatric: Present: A&O x's 3 - Allied health notes Allied health notes reviewed: nursing - Labs CBC & Chem 7: 12/16/20 06:55 12/16/20 06:55 Labs: Abnormal Lab Results - Last 24 Hours (Table) 12/15/20 12/15/20 12/15/20 Range/Units 11:35 16:31 19:57 WBC (3.8-10.6) k/uL RBC (4.30-5.90) m/uL Hgb (13.0-17.5) gm/dL Hct (39.0-53.0) % Neutrophils # (1.3-7.7) k/uL Monocytes # (0-1.0) k/uL Sodium (137-145) mmol/L BUN (9-20) mg/dL Glucose (74-99) mg/dL POC Glucose (mg/dL) 150 H 141 H 183 H (75-99) mg/dL Calcium (8.4-10.2) mg/dL Magnesium (1.6-2.3) mg/dL AST (17-59) U/L ALT (4-49) U/L Total Protein (6.3-8.2) g/dL Albumin (3.5-5.0) g/dL 12/16/20 12/16/20 12/16/20 Range/Units 06:24 06:55 06:55 WBC 15.6 H (3.8-10.6) k/uL RBC 2.36 L (4.30-5.90) m/uL Hgb 7.6 L (13.0-17.5) gm/dL Hct 23.4 L (39.0-53.0) % Neutrophils # 12.4 H (1.3-7.7) k/uL Monocytes # 1.3 H (0-1.0) k/uL Sodium 135 L (137-145) mmol/L BUN 46 H (9-20) mg/dL Glucose 118 H (74-99) mg/dL POC Glucose (mg/dL) 121 H (75-99) mg/dL Calcium 7.7 L (8.4-10.2) mg/dL Magnesium 2.7 H (1.6-2.3) mg/dL AST 67 H (17-59) U/L ALT 70 H (4-49) U/L Total Protein 5.8 L (6.3-8.2) g/dL Albumin 3.1 L (3.5-5.0) g/dL - Imaging and Cardiology Chest x-ray: report reviewed, image reviewed Assessment and Plan Assessment: 1. Coronary artery disease with left main disease, unstable angina, status post four-vessel CABG 2. Hypertension 3. Hyperlipidemia, treated, cholesterol 95, LDL 47 4. Enlarged prostate, treated 5. Never smoker, preoperative FEV1 91% of predicted 6. Bilateral internal carotid artery stenosis, 65-70% on the right and near 75% on the left per angiography, asymptomatic 7. Family history of premature coronary artery disease 8. Atrial fibrillation, known complication of open-heart surgery, status post left atrial appendage ligation Plan: 1. Continue low-dose aspirin, statin, beta marcus therapy. Will increase beta marcus therapy as tolerated, increased to 50 mg twice daily today 2. Continue oral Cardizem for radial artery spasm. Do not discontinue CCB without discussing with cardio thoracic surgery 3. Continue amiodarone, increased to 200 mg 3 times daily yesterday by cardiology. Continue Eliquis for anticoagulation 4. Encourage incentive spirometry use 10 times every hour while awake. Bronchodilators per pulmonology 5. Increase activity, ambulate as tolerated. PT/OT/cardiac rehab consulted. He needs much encouragement to ambulate, should ambulate minimum 4 times in the hallway today 6. Will monitor daily labs and x-rays. Electrolyte replacement per protocol. Will give 20 mg IV push Lasix today 7. GI/DVT prophylaxis 8. Pain control with current medication regimen. 9. Insulin management per primary care service. Patient is not diabetic, preoperative A1c 5.7% 10. Strict accurate intake and output. 11. Daily weights. 12. Discharge planning in progress. Anticipate discharge to home with home care soon 13. More recommendations to follow Time with Patient: Greater than 30
[2020-12-16] MEDS: METOPROLOL TARTRATE 50 MG TAB PO SCH ×2 (10:46→21:08)
[2020-12-16 11:48] LABS: Glucose,Whole Blood 143 mg/dL (75-99)
--- NOTE | 2020-12-16 13:23 | P.PN ---
Subjective Progress Note Date: 12/16/20 Principal diagnosis: Status post CABG 70-year-old male who is status post four-vessel bypass grafting. The patient is doing relatively well. He does have a history of benign essential hypertension, hyperlipidemia, bilateral internal carotid artery disease, strong family history of premature coronary disease, postoperative atelectasis, and postoperative atrial fibrillation. Currently, the patient is not receiving any supplemental oxygen. Is getting saline keep vein open. We are encouraging the patient to deep breathe, cough, and clear secretions, and using incentive s pirometer every hour. Patient should continue on his aspirin, statins, Plavix, and beta blockers. We will continue with pain control as well as GI and DVT prophylaxis. Patient seemed be resting comfortably with no major complaints. The patient could move out of the ICU today. On 12/15/2020 patient seen in follow-up on selective care unit, patient states he feels a little bit more short of breath today, especially with exertion, he was given a dose of Lasix, he is been frequently going to the bathroom. He remains in A. fib with a controlled rate, he does have some mild generalized edema. 2 L of oxygen with pulse ox of 98%, no fever chills, blood pressure is stable. Today's chest x-ray shows some residual atelectasis, possible minimal pleural fluid. His labs have been reviewed today, showing white blood cell count of 17.8, hemoglobin is 8.4, sodium is 136, potassium is 4.0, BUN is 47, creatinine has improved and is down to 1.19. Patient is on oral Cardizem and amiodarone for rate control medications. He was started on Eliquis for anticoagulation. The patient is seen today 12/16/2020 in follow-up on the selective care unit. Postoperative day #6. He is currently up ambulating in his room. Awake and alert in no acute distress. Maintaining O2 saturations in the mid 90s on room air. No worsening shortness of breath, cough or congestion. He's been afebrile. Chest x-ray reveals basilar atelectasis. He continues to work well with the incentive spirometer. White count 15.6. Hemoglobin 7.6. Sodium 135. Potassium 3.8. Creatinine 1.7. He remains on bronchodilators. Anticoagulated with Eliquis. Amiodarone and beta blockers for rate control. Cardizem due to r ight radial artery use. Objective - Vital Signs Vital signs: Vital Signs Temp 97.8 F 12/16/20 10:49 Pulse 104 H 12/16/20 12:58 Resp 18 12/16/20 10:49 BP 115/67 12/16/20 10:49 Pulse Ox 95 12/16/20 10:49 Intake & Output 12/15/20 12/16/20 12/16/20 18:59 06:59 18:59 Intake Total 720 236 Output Total 1000 170 751 Balance -280 -170 -515 Weight 118.2 kg Intake: Oral 720 236 Output: Urine 1000 170 750 Stool 1 Other: Voiding Method Toilet Toilet Toilet Urinal Urinal Urinal # Voids 1 2 1 # Bowel Movements 1 1 ABP, PAP, CO, CI - Last Documented Arterial Blood Pressure 110/47 Pulmonary Artery Pressure 27/9 Cardiac Output 5.8 Cardiac Index 2.4 - Exam GENERAL EXAM: Alert, very pleasant 70 year old gentleman, on room air, up in a chair, comfortable in no apparent distress. HEAD: Normocephalic. EYES: Normal reaction of pupils, equal size. NOSE: Clear with pink turbinates. THROAT: No erythema or exudates. NECK: No masses, no JVD. CHEST: Sternal dressing dry and intact. Heart Hugger in place. LUNGS: Equal air entry with basilar crackles. CVS: S1 and S2 normal with no audible murmur, regular rhythm. ABDOMEN: No hepatosplenomegaly, normal bowel sounds, no guarding or rigidity. SPINE: No scoliosis or deformity SKIN: No rashes CENTRAL NERVOUS SYSTEM: No focal deficits, tone is normal in all 4 extremities. EXTREMITIES: There is no peripheral edema. No clubbing, no cyanosis. Perip heral pulses are intact. - Labs CBC & Chem 7: 12/16/20 06:55 12/16/20 06:55 Labs: Abnormal Lab Results - Last 24 Hours (Table) 12/15/20 12/15/20 12/16/20 Range/Units 16:31 19:57 06:24 WBC (3.8-10.6) k/uL RBC (4.30-5.90) m/uL Hgb (13.0-17.5) gm/dL Hct (39.0-53.0) % Neutrophils # (1.3-7.7) k/uL Monocytes # (0-1.0) k/uL Sodium (137-145) mmol/L BUN (9-20) mg/dL Glucose (74-99) mg/dL POC Glucose (mg/dL) 141 H 183 H 121 H (75-99) mg/dL Calcium (8.4-10.2) mg/dL Magnesium (1.6-2.3) mg/dL AST (17-59) U/L ALT (4-49) U/L Total Protein (6.3-8.2) g/dL Albumin (3.5-5.0) g/dL 12/16/20 12/16/20 12/16/20 Range/Units 06:55 06:55 11:47 WBC 15.6 H (3.8-10.6) k/uL RBC 2.36 L (4.30-5.90) m/uL Hgb 7.6 L (13.0-17.5) gm/dL Hct 23.4 L (39.0-53.0) % Neutrophils # 12.4 H (1.3-7.7) k/uL Monocytes # 1.3 H (0-1.0) k/uL Sodium 135 L (137-145) mmol/L BUN 46 H (9-20) mg/dL Glucose 118 H (74-99) mg/dL POC Glucose (mg/dL) 143 H (75-99) mg/dL Calcium 7.7 L (8.4-10.2) mg/dL Magnesium 2.7 H (1.6-2.3) mg/dL AST 67 H (17-59) U/L ALT 70 H (4-49) U/L Total Protein 5.8 L (6.3-8.2) g/dL Albumin 3.1 L (3.5-5.0) g/dL Assessment and Plan Assessment: 1 Coronary artery disease status post CABG 4 vessels, CASH to LAD, radial artery to obtuse marginal, saphenous vein graft to diagonal, saphenous vein graft to distal right coronary artery. Postoperative day #6. 2 Atrial fibrillation, expected outcome of cardiac surgery 3 Hypertension 4 Hyperlipidemia 5 Benign prosthetic hypertrophy 6 Carotid artery disease Plan: The patient was seen and evaluated by Dr. Barcenas Chest x-ray and labs reviewed Continue the current treatment plan Increase his activity as tolerated Encouraged increased use the incentive spirometer We will continue to follow I, the cosigning physician, performed a history & physical examination of the patient. Lungs sounds with faint crackles in the posterior bases. Maintaining good O2 saturations in the 90s on room air. I discussed the assessment and plan of care with my nurse practitioner, Kim Guthrie. I attest to the above note as dictated by her.
--- NOTE | 2020-12-16 13:31 | P.PN ---
Subjective This is a pleasant 70-year-old male s/p bypass grafting with CASH-LAD, radial artery-OM, SVG-dx and SVG-RCA. He is seen and examined preparing to take a shower with the aid. He states he woke up this morning feeling short of breath. He did sleep well without any significant orthopnea. He denies exertional chest pain. He continues to be in atrial fibrillation with rates between 90 and 110. Blood pressure 115/67 afebrile and maintaining oxygen saturations on room air. Laboratory data reviewed, WBC 15.6, hemoglobin 7.6, platelets 393, sodium 135, potassium 3.8, creatinine 1.17 and magnesium 2.7. Chest x-ray this morning reveals basilar atelectasis with possible minimal effusions. GENERAL: Well-appearing, well-nourished and in no acute distress. NECK: Supple without JVD or thyromegaly. LUNGS: Breath sounds clear to auscultation bilaterally. Respiration equal and unlabored. No wheezes, rales or rhonchi. Diminished bilaterally. HEART: Irregular rate and rhythm without murmurs, rubs or gallops. S1 and S2 heard. Heart hugger in place. Incision noted to be intact with no drainage. EXTREMITIES: Normal range of motion, trace edema. No clubbing or cyanosis. Peripheral pulses intact. ASSESSMENT Coronary artery disease s/p bypass grafting POD#5 Hypertension Dyslipidemia New onset paroxysmal atrial fibrillation with variable ventricular rates Leuckocytosis PLAN Increase lopressor as tolerated. Continue amiodarone. Nurse Practitioner note has been reviewed, I agree with a documented findings and plan of care. Patient was seen and examined. Objective - Vital Signs Vital signs: Vital Signs Temp 97.8 F 12/16/20 10:49 Pulse 104 H 12/16/20 12:58 Resp 18 12/16/20 10:49 BP 115/67 12/16/20 10:49 Pulse Ox 95 12/16/20 10:49 Intake & Output 12/15/20 12/16/20 12/16/20 18:59 06:59 18:59 Intake Total 720 236 Output Total 1000 170 751 Balance -280 -170 -796 Weight 118.2 kg Intake: Oral 720 236 Output: Urine 1000 170 750 Stool 1 Other: Voiding Method Toilet Toilet Toilet Urinal Urinal Urinal # Voids 1 2 1 # Bowel Movements 1 1 ABP, PAP, CO, CI - Last Documented Arterial Blood Pressure 110/47 Pulmonary Artery Pressure 27/9 Cardiac Output 5.8 Cardiac Index 2.4 - Labs CBC & Chem 7: 12/16/20 06:55 12/16/20 06:55 Labs: Abnormal Lab Results - Last 24 Hours (Table) 12/15/20 12/15/20 12/16/20 Range/Units 16:31 19:57 06:24 WBC (3.8-10.6) k/uL RBC (4.30-5.90) m/uL Hgb (13.0-17.5) gm/dL Hct (39.0-53.0) % Neutrophils # (1.3-7.7) k/uL Monocytes # (0-1.0) k/uL Sodium (137-145) mmol/L BUN (9-20) mg/dL Glucose (74-99) mg/dL POC Glucose (mg/dL) 141 H 183 H 121 H (75-99) mg/dL Calcium (8.4-10.2) mg/dL Magnesium (1.6-2.3) mg/dL AST (17-59) U/L ALT (4-49) U/L Total Protein (6.3-8.2) g/dL Albumin (3.5-5.0) g/dL 12/16/20 12/16/20 12/16/20 Range/Units 06:55 06:55 11:47 WBC 15.6 H (3.8-10.6) k/uL RBC 2.36 L (4.30-5.90) m/uL Hgb 7.6 L (13.0-17.5) gm/dL Hct 23.4 L (39.0-53.0) % Neutrophils # 12.4 H (1.3-7.7) k/uL Monocytes # 1.3 H (0-1.0) k/uL Sodium 135 L (137-145) mmol/L BUN 46 H (9-20) mg/dL Glucose 118 H (74-99) mg/dL POC Glucose (mg/dL) 143 H (75-99) mg/dL Calcium 7.7 L (8.4-10.2) mg/dL Magnesium 2.7 H (1.6-2.3) mg/dL AST 67 H (17-59) U/L ALT 70 H (4-49) U/L Total Protein 5.8 L (6.3-8.2) g/dL Albumin 3.1 L (3.5-5.0) g/dL
[2020-12-16] MEDS: SERTRALINE 25 MG TAB PO SCH (14:25)
[2020-12-16 17:05] LABS: Glucose,Whole Blood 154 mg/dL (75-99)
--- NOTE | 2020-12-16 17:11 | PN ---
PROGRESS NOTE This is a white male who is having a tough time status post CABG surgery. Respiratory rate 16 to 18, blood pressure 115/67, pulse rate in low 1002, temperature 97.8. He has poor mood, poor affect. He appears to be clinically depressed. Discussed with his and the patient. We are going to start him on a low-dose depression medicine, as 50% of people get depressed post CABG. He is one of them. He remains on Eliquis for atrial fibrillation, Xanax for anxiety p.r.n., high-dose atorvastatin, diltiazem orally for atrial fibrillation, breathing treatments, melatonin for sleep, metoprolol 50 b.i.d., midodrine before meals and at bedtime for hypotension, multivitamins, Protonix 40 mg daily, potassium protocol. He was started on Zoloft 25 daily. Will monitor him clinically. Continue with current treatment. Continue to ambulate him and get him up moving. Prognosis guarded. Will continue current treatment. He is saturating 95% on room air. Start Zoloft for depression, status post CABG. Please see further orders above. He appears to be slowly improving. Zoloft will be started for depression. MMODL / IJN: [id number] /
[2020-12-16 21:00] LABS: Glucose,Whole Blood 157 mg/dL (75-99)
[2020-12-16] MEDS: SENNOSIDES-DOCUSATE SODIUM 1 EACH TAB PO SCH (21:08)
[2020-12-17] MEDS: INSULIN ASPART (NovoLOG) 100 UNIT/ML VIAL SQ SCH ×3 (06:20→17:25)
[2020-12-17] MEDS: MIDODRINE 5 MG TAB PO SCH ×3 (06:20→17:26)
[2020-12-17] MEDS: PANTOPRAZOLE 40 MG TABLET PO SCH (06:20)
[2020-12-17] MEDS: DILTIAZEM ORAL 30 MG TAB PO SCH ×2 (06:20→15:42)
[2020-12-17 06:30] LABS: Glucose,Whole Blood 124 mg/dL (75-99)
[2020-12-17] MEDS: IPRATROPIUM-ALBUTEROL 3 ML NEB INHALATION SCH ×3 (06:55→16:10)
[2020-12-17 08:24] LABS: Basophils % (A) 0 %; Eosinophils # (A) 0.2 k/uL (0-0.7); Eosinophils % (A) 2 %; HCT 22.9 % (39.0-53.0); HGB 7.5 gm/dL (13.0-17.5); Hypochromasia Slight; Lymphocytes # (A) 1.5 k/uL (1.0-4.8); Lymphocytes % (A) 10 %; MCH 32.7 pg (25.0-35.0); MCHC 32.7 g/dL (31.0-37.0); MCV 100.2 fL (80.0-100.0); Macrocytosis Slight; Mean Platelet Volume 7.5; Monocytes # (A) 0.8 k/uL (0-1.0); Monocytes % (A) 5 %; Neutrophils # (A) 11.3 k/uL (1.3-7.7); Neutrophils % (A) 80 %; Platelet Count 431 k/uL (150-450); RBC 2.29 m/uL (4.30-5.90); RDW 14.5 % (11.5-15.5); WBC 14.1 k/uL (3.8-10.6)
[2020-12-17 08:41] LABS: Calcium 7.7 mg/dL (8.4-10.2); Potassium 3.9 mmol/L (3.5-5.1); Total Bilirubin 0.9 mg/dL (0.2-1.3); Total Protein 5.6 g/dL (6.3-8.2)
[2020-12-17] MEDS: SODIUM FERRIC GLUCONAT-SUCROSE 125 MG in SODIUM CHLORIDE 0.9% 100 ML IVPB SCH (09:29)
[2020-12-17] MEDS: AMIODARONE 200 MG TAB PO SCH ×2 (09:30→17:26)
[2020-12-17] MEDS: MULTIVITAMINS, THERA 1 EACH TAB PO SCH (09:30)
[2020-12-17] MEDS: ATORVASTATIN 40 MG TAB PO SCH (09:30)
[2020-12-17] MEDS: ASPIRIN 81 MG PO SCH (09:30)
[2020-12-17] MEDS: APIXABAN 5 MG TAB PO SCH (09:30)
[2020-12-17] MEDS: SERTRALINE 25 MG TAB PO SCH (09:30)
[2020-12-17] MEDS: TAMSULOSIN 0.4 MG CAP.ER.24H PO SCH (09:30)
[2020-12-17] MEDS ORDERED: POTASSIUM CHLORIDE ER 20 MEQ TAB.ER PO STA (10:19)
--- NOTE | 2020-12-17 10:25 | XR ---
EXAMINATION TYPE: XR chest 2V DATE OF EXAM: 12/17/2020 COMPARISON: Chest x-ray 12/16/2020 HISTORY: Post cardiac surgery TECHNIQUE: Frontal and lateral views of the chest are obtained. FINDINGS: There are overlying artifacts, patient is rotated and post median sternotomy, left atrial appendage clipping placement. There is no evident pneumothorax. Some blunting the costophrenic angles , patchy basilar density persists. IMPRESSION: Atelectasis, difficult to exclude small effusions. Expiratory exam.
[2020-12-17] MEDS ORDERED: FUROSEMIDE 20 MG TAB PO SCH (11:15)
--- NOTE | 2020-12-17 11:25 | P.PN ---
Subjective Progress Note Date: 12/17/20 Principal diagnosis: Coronary artery disease with left main disease, unstable angina. Past medical history significant for hypertension, hyperlipidemia, enlarged prostate, lifetim e non-smoker, bilateral internal carotid artery stenosis, and family history of premature coronary artery diseas. POD #7 coronary artery bypass grafting 4 vessels, left internal mammary artery to the left anterior descending artery, radial artery to the obtuse marginal artery, a reverse greater saphenous vein graft to the diagonal coronary artery, a reverse greater saphenous vein graft to the distal right coronary artery, endoscopic harvesting of the left greater saphenous vein, endoscopic harvest of the left radial artery, epi-aortic ultrasound, intraoperative transesophageal echocardiogram, ligation of the left atrial appendage using a 35 mm AtriCure clip. Atrial fibrillation, known complication of open-heart surgery. The patient was seen in follow-up today at his bedside on the cardiac stepdown unit. Currently he is sitting up to the bedside chair, is awake, alert and oriented 3. Denies any complaints of pain or shortness of breath. He does report that he does get somewhat short of breath when ambulating. He is complaining of some blood in his urine this morning. He ambulated in the cardiac stepdown unit hallway this morning without difficulty with assist from one nursing staff. Remote telemetry showing normal sinus rhythm with bundle branch block heart rate 77 BPM, no further episodes of atrial fibrillation reported. Oxygen saturations are 94% on room air and he is achieving 1500 mL on his incentive spirometry. He remains afebrile the last 24 hours. Objective - Vital Signs Vital signs: Vital Signs Temp 97.4 F L 12/17/20 08:05 Pulse 87 12/17/20 08:05 Resp 19 12/17/20 08:05 BP 123/58 12/17/20 08:05 Pulse Ox 97 12/17/20 08:05 Intake & Output 12/16/20 12/17/20 12/17/20 18:59 06:59 18:59 Intake Total 458 100 240 Output Total 752 450 200 Balance -294 -350 40 Weight 116.6 kg Intake: Oral 458 100 240 Output: Urine 750 450 200 Stool 2 Other: Voiding Method Toilet Toilet Toilet Urinal Urinal Urinal # Voids 2 1 1 # Bowel Movements 1 ABP, PAP, CO, CI - Last Documented Arterial Blood Pressure 110/47 Pulmonary Artery Pressure 27/9 Cardiac Output 5.8 Cardiac Index 2.4 - Constitutional General appearance: Present: cooperative, no acute distress, obese - EENT Eyes: Present: normal appearance. Absent: scleral icterus ENT: Present: hearing grossly normal - Neck Details: Neck is supple, no JVD. - Respiratory Details: Lung sounds are essentially clear throughout, diminished bilateral bases. Respirations are symmetrical and nonlabored. Oxygen saturation are 94% on room air and he is achieving 1500 mL on his incentive spirometry. - Cardiovascular Details: Regular rhythm and rate. S1 and S2 present, negative for S3, gallop or murmur. Sternum is stable. Heart hugger is in place and he is demonstrating appropriate use. Remote telemetry showing normal sinus rhythm with bundle branch block heart rate 77 BPM. +1 edema to his bilateral lower extremities. Knee-high sequential compression devices and knee-high JOHN hose in place to his bilateral lower extremities. - Gastrointestinal Gastrointestinal Comment(s): Abdomen is soft, nontender and nondistended. Active bowel sounds present in all 4 abdominal quadrants. No guarding or rigidity. No organomegaly appreciated. Tolerating oral intake. Bowel movement yesterday 12/16/2020. - Genitourinary Genitourinary Comment(s): Continues to void. - Integumentary Integumentary Comment(s): Skin is warm and dry. No clubbing or cyanosis is present. Midline sternal in cision is clean, dry and approximated. Scant serosanguineous drainage from his distal incision. Left radial artery harvest site clean, dry and approximated. No drainage or redness is present. Scattered ecchymosis to his left forearm and upper arm. Left lower extremity EVH site is clean, dry and approximated. No drainage or redness is present. - Neurologic Neurologic: Present: CNII-XII intact. Absent: focal deficits - Musculoskeletal Musculoskeletal: Present: gait normal, strength equal bilaterally - Psychiatric Psychiatric: Present: A&O x's 3, appropriate affect, intact judgment & insight - Allied health notes Allied health notes reviewed: nursing - Labs CBC & Chem 7: 12/17/20 06:56 12/17/20 06:56 Labs: Abnormal Lab Results - Last 24 Hours (Table) 12/16/20 12/16/20 12/16/20 Range/Units 11:47 17:04 20:48 WBC (3.8-10.6) k/uL RBC (4.30-5.90) m/uL Hgb (13.0-17.5) gm/dL Hct (39.0-53.0) % MCV (80.0-100.0) fL Neutrophils # (1.3-7.7) k/uL Sodium (137-145) mmol/L BUN (9-20) mg/dL Glucose (74-99) mg/dL POC Glucose (mg/dL) 143 H 154 H 157 H (75-99) mg/dL Calcium (8.4-10.2) mg/dL AST (17-59) U/L ALT (4-49) U/L Total Protein (6.3-8.2) g/dL Albumin (3.5-5.0) g/dL 12/17/20 12/17/20 12/17/20 Range/Units 06:19 06:56 06:56 WBC 14.1 H (3.8-10.6) k/uL RBC 2.29 L (4.30-5.90) m/uL Hgb 7.5 L (13.0-17.5) gm/dL Hct 22.9 L (39.0-53.0) % MCV 100.2 H (80.0-100.0) fL Neutrophils # 11.3 H (1.3-7.7) k/uL Sodium 135 L (137-145) mmol/L BUN 45 H (9-20) mg/dL Glucose 139 H (74-99) mg/dL POC Glucose (mg/dL) 124 H (75-99) mg/dL Calcium 7.7 L (8.4-10.2) mg/dL AST 70 H (17-59) U/L ALT 98 H (4-49) U/L Total Protein 5.6 L (6.3-8.2) g/dL Albumin 3.0 L (3.5-5.0) g/dL - Imaging and Cardiology Chest x-ray: report reviewed, image reviewed Assessment and Plan Assessment: 1. Coronary artery disease with left main disease, unstable angina, status post four-vessel CABG 2. Hypertension 3. Hyperlipidemia, treated, cholesterol 95, LDL 47 4. Enlarged prostate, treated 5. Never smoker, preoperative FEV1 91% of predicted 6. Bilateral internal carotid artery stenosis, 65-70% on the right and near 75% on the left per angiography, asymptomatic 7. Family history of premature coronary artery disease 8. Atrial fibrillation, known complication of open-heart surgery, status post left atrial appendage ligation Plan: 1. Continue low-dose aspirin, statin, and beta marcus. Will increase beta marcus therapy as tolerated. 2. Continue oral Cardizem for radial artery spasm prophylaxis. Please do not discontinue calcium channel marcus without discussing with cardio thoracic surgery. 3. Continue amiodarone 200 mg 3 times daily. Continue Eliquis for anticoagulation 4. Encourage incentive spirometry use 10 times every hour while awake. Bronchodilators per pulmonology. 5. Increase activity, ambulate as tolerated. PT/OT/cardiac rehab following. 6. Will monitor daily labs and chest x-rays. Electrolyte replacement per protocol. Will give 20 mg by mouth Lasix today. When discharged home we will send home on Lasix 20 mg by mouth daily 5 days and potassium chloride ER 10 mEq by mouth daily 5 days. 7. GI/DVT prophylaxis. 8. Pain control with current when necessary orders. 9. Insulin management per primary care service. Patient is not diabetic, preoperative A1c 5.7%. 10. Strict accurate intake and output. 11. Daily weights. 12. Discharge planning in progress. Anticipate discharge to home with home care soon within the next 24 hours. 13. More recommendations to follow based on patient's clinical course. Time with Patient: Greater than 30
--- NOTE | 2020-12-17 11:41 | P.PN ---
Subjective Progress Note Date: 12/17/20 Principal diagnosis: Status post CABG 70-year-old male who is status post four-vessel bypass grafting. The patient is doing relatively well. He does have a history of benign essential hypertension, hyperlipidemia, bilateral internal carotid artery disease, strong family history of premature coronary disease, postoperative atelectasis, and postoperative atrial fibrillation. Currently, the patient is not receiving any supplemental oxygen. Is getting saline keep vein open. We are encouraging the patient to deep breathe, cough, and clear secretions, and using incentive s pirometer every hour. Patient should continue on his aspirin, statins, Plavix, and beta blockers. We will continue with pain control as well as GI and DVT prophylaxis. Patient seemed be resting comfortably with no major complaints. The patient could move out of the ICU today. On 12/15/2020 patient seen in follow-up on selective care unit, patient states he feels a little bit more short of breath today, especially with exertion, he was given a dose of Lasix, he is been frequently going to the bathroom. He remains in A. fib with a controlled rate, he does have some mild generalized edema. 2 L of oxygen with pulse ox of 98%, no fever chills, blood pressure is stable. Today's chest x-ray shows some residual atelectasis, possible minimal pleural fluid. His labs have been reviewed today, showing white blood cell count of 17.8, hemoglobin is 8.4, sodium is 136, potassium is 4.0, BUN is 47, creatinine has improved and is down to 1.19. Patient is on oral Cardizem and amiodarone for rate control medications. He was started on Eliquis for anticoagulation. The patient is seen today 12/16/2020 in follow-up on the selective care unit. Postoperative day #6. He is currently up ambulating in his room. Awake and alert in no acute distress. Maintaining O2 saturations in the mid 90s on room air. No worsening shortness of breath, cough or congestion. He's been afebrile. Chest x-ray reveals basilar atelectasis. He continues to work well with the incentive spirometer. White count 15.6. Hemoglobin 7.6. Sodium 135. Potassium 3.8. Creatinine 1.7. He remains on bronchodilators. Anticoagulated with Eliquis. Amiodarone and beta blockers for rate control. Cardizem due to r ight radial artery use. The patient is seen today 12/17/2020 in follow-up on the selective care unit. This is postoperative day #7. He is currently up ambulating in the hallway. Awake and alert in no acute distress. He is maintaining sinus rhythm. O2 saturations in the 90s on room air. He is afebrile. Hemodynamically stable. Chest x-ray reveals basilar atelectasis. White count 14.1. Hemoglobin 7.5. Sodium 135. Potassium 3.9. Creatinine 1.13. He remains on bronchodilators. Anticoagulated with Eliquis. Objective - Vital Signs Vital signs: Vital Signs Temp 97.4 F L 12/17/20 08:05 Pulse 82 12/17/20 11:00 Resp 19 12/17/20 08:05 BP 123/58 12/17/20 08:05 Pulse Ox 97 12/17/20 08:05 Intake & Output 12/16/20 12/17/20 12/17/20 18:59 06:59 18:59 Intake Total 458 100 240 Output Total 752 450 200 Balance -294 -350 40 Weight 116.6 kg Intake: Oral 458 100 240 Output: Urine 750 450 200 Stool 2 Other: Voiding Method Toilet Toilet Toilet Urinal Urinal Urinal # Voids 2 1 1 # Bowel Movements 1 ABP, PAP, CO, CI - Last Documented Arterial Blood Pressure 110/47 Pulmonary Artery Pressure 27/9 Cardiac Output 5.8 Cardiac Index 2.4 - Exam GENERAL EXAM: Alert, very pleasant 70 year old gentleman, on room air, ambulating in the hallway, comfortable in no apparent distress. HEAD: Normocephalic. EYES: Normal reaction of pupils, equal size. NOSE: Clear with pink turbinates. THROAT: No erythema or exudates. NECK: No masses, no JVD. CHEST: Sternal dressing dry and intact. Heart Hugger in place. LUNGS: Equal air entry with basilar crackles. CVS: S1 and S2 normal with no audible murmur, regular rhythm. ABDOMEN: No hepatosplenomegaly, normal bowel sounds, no guarding or rigidity. SPINE: No scoliosis or deformity SKIN: No rashes CENTRAL NERVOUS SYSTEM: No focal deficits, tone is normal in all 4 extremities. EXTREMITIES: There is no peripheral edema. No clubbing, no cyanosis. Peripheral pulses are intact. - Labs CBC & Chem 7: 12/17/20 06:56 12/17/20 06:56 Labs: Abnormal Lab Results - Last 24 Hours (Table) 12/16/20 12/16/20 12/16/20 Range/Units 11:47 17:04 20:48 WBC (3.8-10.6) k/uL RBC (4.30-5.90) m/uL Hgb (13.0-17.5) gm/dL Hct (39.0-53.0) % MCV (80.0-100.0) fL Neutrophils # (1.3-7.7) k/uL Sodium (137-145) mmol/L BUN (9-20) mg/dL Glucose (74-99) mg/dL POC Glucose (mg/dL) 143 H 154 H 157 H (75-99) mg/dL Calcium (8.4-10.2) mg/dL AST (17-59) U/L ALT (4-49) U/L Total Protein (6.3-8.2) g/dL Albumin (3.5-5.0) g/dL 12/17/20 12/17/20 12/17/20 Range/Units 06:19 06:56 06:56 WBC 14.1 H (3.8-10.6) k/uL RBC 2.29 L (4.30-5.90) m/uL Hgb 7.5 L (13.0-17.5) gm/dL Hct 22.9 L (39.0-53.0) % MCV 100.2 H (80.0-100.0) fL Neutrophils # 11.3 H (1.3-7.7) k/uL Sodium 135 L (137-145) mmol/L BUN 45 H (9-20) mg/dL Glucose 139 H (74-99) mg/dL POC Glucose (mg/dL) 124 H (75-99) mg/dL Calcium 7.7 L (8.4-10.2) mg/dL AST 70 H (17-59) U/L ALT 98 H (4-49) U/L Total Protein 5.6 L (6.3-8.2) g/dL Albumin 3.0 L (3.5-5.0) g/dL Assessment and Plan Assessment: 1 Coronary artery disease status post CABG 4 vessels, CASH to LAD, radial artery to obtuse marginal, saphenous vein graft to diagonal, saphenous vein graft to distal right coronary artery. Postoperative day #7. 2 Atrial fibrillation, expected outcome of cardiac surgery 3 Hypertension 4 Hyperlipidemia 5 Benign prosthetic hypertrophy 6 Carotid artery disease Plan: The patient was seen and evaluated by Dr. Barcenas Chest x-ray and labs reviewed Continue the current treatment plan Increase his activity as tolerated Encouraged increased use the incentive spirometer Home once cleared by CT services I, the cosigning physician, performed a history & physical examination of the patient. Lungs sounds with faint crackles in the posterior bases. Maintaining good O2 saturations in the 90s on room air. I discussed the assessment and plan of care with my nurse practitioner, Kim Guthrie. I attest to the above note as dictated by her.
[2020-12-17 12:00] LABS: Glucose,Whole Blood 136 mg/dL (75-99)
[2020-12-17] MEDS: METOPROLOL TARTRATE 50 MG TAB PO SCH (12:24)
--- NOTE | 2020-12-17 12:25 | P.PN ---
Subjective Patient looks better today. He is walking around in the hallway. He still gets short of breath but he is not in a regular rhythm. He was in atrial fibrillation with RVR yesterday and was on amiodarone He denies any chest discomfort. He short of breath when he walks half the hallway Impression CAD status post demographics the LAD, radial graft to the OM and SVG to the diagonal and SVG to the RCA On examination he is mildly short of breath with exertion comfortable at rest Supple neck no JVD Breath sounds are clear, reduced bilaterally but no rhonchi no crackles Heart sounds are regular no murmurs Extremity is warm Impression Coronary artery disease status post coronary artery bypass grafting Hypertension Dyslipidemia Atrial fibrillation, paroxysmal and converted to sinus rhythm on amiodarone Maximize beta blockers Continue oral amiodarone for one month Anticoagulation recommended Objective - Vital Signs Vital signs: Vital Signs Temp 97.4 F L 12/17/20 08:05 Pulse 82 12/17/20 11:00 Resp 19 12/17/20 08:05 BP 123/58 12/17/20 08:05 Pulse Ox 97 12/17/20 08:05 Intake & Output 12/16/20 12/17/20 12/17/20 18:59 06:59 18:59 Intake Total 458 100 240 Output Total 752 450 200 Balance -294 -350 40 Weight 116.6 kg Intake: Oral 458 100 240 Output: Urine 750 450 200 Stool 2 Other: Voiding Method Toilet Toilet Toilet Urinal Urinal Urinal # Voids 2 1 1 # Bowel Movements 1 ABP, PAP, CO, CI - Last Documented Arterial Blood Pressure 110/47 Pulmonary Artery Pressure 27/9 Cardiac Output 5.8 Cardiac Index 2.4 - Labs CBC & Chem 7: 12/17/20 06:56 12/17/20 06:56 Labs: Abnormal Lab Results - Last 24 Hours (Table) 12/16/20 12/16/20 12/17/20 Range/Units 17:04 20:48 06:19 WBC (3.8-10.6) k/uL RBC (4.30-5.90) m/uL Hgb (13.0-17.5) gm/dL Hct (39.0-53.0) % MCV (80.0-100.0) fL Neutrophils # (1.3-7.7) k/uL Sodium (137-145) mmol/L BUN (9-20) mg/dL Glucose (74-99) mg/dL POC Glucose (mg/dL) 154 H 157 H 124 H (75-99) mg/dL Calcium (8.4-10.2) mg/dL AST (17-59) U/L ALT (4-49) U/L Total Protein (6.3-8.2) g/dL Albumin (3.5-5.0) g/dL 12/17/20 12/17/20 12/17/20 Range/Units 06:56 06:56 11:59 WBC 14.1 H (3.8-10.6) k/uL RBC 2.29 L (4.30-5.90) m/uL Hgb 7.5 L (13.0-17.5) gm/dL Hct 22.9 L (39.0-53.0) % MCV 100.2 H (80.0-100.0) fL Neutrophils # 11.3 H (1.3-7.7) k/uL Sodium 135 L (137-145) mmol/L BUN 45 H (9-20) mg/dL Glucose 139 H (74-99) mg/dL POC Glucose (mg/dL) 136 H (75-99) mg/dL Calcium 7.7 L (8.4-10.2) mg/dL AST 70 H (17-59) U/L ALT 98 H (4-49) U/L Total Protein 5.6 L (6.3-8.2) g/dL Albumin 3.0 L (3.5-5.0) g/dL
[2020-12-17 12:59] VITALS: RESP 18
--- NOTE | 2020-12-17 14:18 | P.DS ---
Providers Date of admission: 12/10/20 05:52 Expected date of discharge: 12/17/20 Attending physician: Oneil Stack Consults: 12/10/20 15:29 Consult Physician Routine Consulting Provider: Hue Wiley Consult Reason/Comments: Geospatial Information Technologist Consult: post cardiac surgery Do you want consulting provider notified?: Yes Consult Physician Routine Consulting Provider: Conrad Rivera Consult Reason/Comments: med mgmt Do you want consulting provider notified?: Yes Consult Physician Routine Consulting Provider: Ilene Goodman Consult Reason/Comments: Contracting Support Specialist Consult: post cardiac surgery Do you want consulting provider notified?: Yes Primary care physician: [facility] Course: FINAL DIAGNOSIS: 1. Coronary artery disease with left main disease, unstable angina, status post four-vessel coronary artery bypass grafting surgery 2. Hypertension 3. Hyperlipidemia, treated 4. Benign prostatic hypertrophy, treated 5. Lifetime nonsmoker with a preoperative FEV1 91% of predicted value 6. Bilateral internal carotid artery stenosis, 60-70% on the right and near 75% on the left per angiography, asymptomatic 7. Family history of premature coronary artery disease 8. Postoperative atrial fibrillation, known complication of open heart surgery, status post left atrial appendage ligation PRINCIPAL PROCEDURE: 1. Coronary artery bypass grafting 4 vessels, left internal mammary artery to left anterior descending coronary artery, radial artery to the obtuse marginal coronary artery, a reverse greater saphenous vein graft to the diagonal coronary artery, a reverse greater saphenous vein graft to the distal right coronary artery. 2. Endoscopic harvesting of the left greater saphenous vein. 3. Endoscopic harvesting of the left radial artery. 4. Intraoperative transesophageal echocardiogram. 5. Ligation of the left atrial appendage using a 35 mm Atricure clip. HISTORY OF PRESENT ILLNESS: This is a 70-year-old gentleman who follows with Dr. Conrad Rivera on an outpatient basis for primary care service. He is a past medical history significant for hypertension, hyperlipidemia, lifetime nonsmoker and family history of premature coronary artery disease with his father from a myocardial infarction at age [age] years old. Recently, he has been experiencing episodes of chest pressure associated with shortness of breath with activity but not at rest. Due to the episodes of chest pressure and shortness of breath he sought medical attention from his primary care physician who subsequently referred him to Dr. Tan from [facility]. He was initiated on medical therapy including aspirin and statin. A 12-lead EKG was completed which showed a new left bundle branch block compared to his EKG completed 4 years prior. For further evaluation he underwent a stress test which showed reduced uptake within the inferior wall, possibly artifact versus ischemia. Due to the patient's symptoms and EKG changes a cardiac catheterization was recommended and completed on 12/07/[address] Tan. The cardiac catheterization results demonstrated a 50% stenosis to his left main coronary artery, and 80-90% stenosis to his proximal left anterior descending coronary artery, and 80% stenosis to his obtuse marginal branch of his circumflex coronary artery and a 70% ostial stenosis to his right coronary artery. Subsequently, because of the findings on the cardiac catheterization a consult was placed to Dr. Dmitri Hu from cardiothoracic surgery for further evaluation and recommendations including myocardial revascularization. The results of the heart catheterization were reviewed with the patient and his by Dr. Hu, treatment options including myocardial revascularization surgery were discussed with the patient and his . Risks and benefits of surgery including the STS risk score were discussed and knowing and understanding the risks the patient wanted to proceed with the surgical option. The patient was discharged home after his cardiac catheterization and he was scheduled for myocardial revascularization surgery on elective basis which will be performed by Dr. Oneil Stack. HOSPITAL COURSE: On 12/10/2020, the patient was admitted to the hospital, brought to the preoperative area, prepared in the usual fashion and subsequently taken to the operating room per Dr. Oneil Stack performed a four-vessel coronary artery bypass grafting surgery with his left internal mammary artery to left anterior descending coronary artery, radial artery to the obtuse marginal coronary artery, a reverse greater saphenous vein graft to the diagonal coronary artery, a reverse greater saphenous vein graft to the distal right coronary artery, endoscopic harvesting of the left greater saphenous vein, endoscopic harvesting of the left radial artery, ligation of the left atrial appendage using a 35 mm Atricure clip and an intraoperative transesophageal echocardiogram. Upon completion of the surgery the patient was transferred to the cardiovascular intensive care unit where he was recovered, monitored hemodynamically and where he progressed cardiac rehabilitation phase 1. He was extubated, all lines, tubes and supportive drips were discontinued when appropriate and he was transferred to the cardiac stepdown unit for further monitoring and rehabilitation. He did experience some paroxysmal atrial fibrillation which was treated accordingly and he is currently in normal sinus rhythm with a left bundle branch block. His oxygen was titrated down, he continued to work with physical/occupational therapy and cardiac rehabilitation, he was tolerating an oral diet, his pain was well controlled without narcotics and he was ready to be discharged home with [facility] care on postoper ative day #7. He has received written and verbal instructions regarding his medications, activity restrictions, signs and symptoms requiring physician notification and his follow-up appointments. COMPLICATIONS: His postoperative recovery was complicated by some postoperative paroxysmal atrial fibrillation which was treated accordingly. Plan - Discharge Summary Discharge Rx Participant: Yes New Discharge Prescriptions: New Diltiazem Oral [Cardizem*] 30 mg PO Q6HR #120 tab Amiodarone [Cordarone] 200 mg PO TID #90 tab Apixaban [Eliquis] 5 mg PO BID #60 tab Potassium Chloride ER [K-Dur 10] 10 meq PO DAILY #5 tab.er.prt Furosemide [Lasix] 20 mg PO DAILY #5 tab Atorvastatin [Lipitor] 40 mg PO DAILY #30 tab Metoprolol Tartrate [Lopressor] 50 mg PO BID #60 tab Midodrine [ProAmatine] 10 mg PO AC-TID #90 tab Pantoprazole [Protonix] 40 mg PO AC-BRKFST #30 tablet.dr [place]-Docusate Sodium [Senokot-S] 2 each PO HS #7 tab Acetaminophen Tab [Tylenol] 650 mg PO Q4HR PRN tab PRN Reason: Fever And/ Or Pain Sertraline [Zoloft] 25 mg PO DAILY #30 tab Ferrous Sulfate [Feosol] 325 mg PO DAILY #30 tab Ascorbic Acid [Vitamin C] 500 mg PO DAILY #30 tablet Continue Tamsulosin [Flomax] 0.4 mg PO DAILY Aspirin [Adult Low Dose Aspirin EC] 81 mg PO DAILY Multivitamins, Thera [Multivitamin (formulary)] 1 tab PO DAILY Fluticasone Nasal [place] [Flonase Nasal [place]] 1 spray EA NOSTRIL DAILY PRN PRN Reason: Sinus Symptoms Discontinued Losartan [Cozaar] 25 mg PO DAILY Atorvastatin [Lipitor] 80 mg PO HS Carvedilol [Coreg] 6.25 mg PO BID Discharge Medication List Aspirin [Adult Low Dose Aspirin EC] 81 mg PO DAILY 11/25/16 [History] Fluticasone Nasal [place] [Flonase Nasal [place]] 1 spray EA NOSTRIL DAILY PRN 11/25/16 [History] Multivitamins, Thera [Multivitamin (formulary)] 1 tab PO DAILY 11/25/16 [History] Tamsulosin [Flomax] 0.4 mg PO DAILY 11/25/16 [History] Acetaminophen Tab [Tylenol] 650 mg PO Q4HR PRN tab 12/17/20 [Rx] Amiodarone [Cordarone] 200 mg PO TID #90 tab 12/17/20 [Rx] Apixaban [Eliquis] 5 mg PO BID #60 tab 12/17/20 [Rx] Ascorbic Acid [Vitamin C] 500 mg PO DAILY #30 tablet 12/17/20 [Rx] Atorvastatin [Lipitor] 40 mg PO DAILY #30 tab 12/17/20 [Rx] Diltiazem Oral [Cardizem*] 30 mg PO Q6HR #120 tab 12/17/20 [Rx] Ferrous Sulfate [Feosol] 325 mg PO DAILY #30 tab 12/17/20 [Rx] Furosemide [Lasix] 20 mg PO DAILY #5 tab 12/17/20 [Rx] Metoprolol Tartrate [Lopressor] 50 mg PO BID #60 tab 12/17/20 [Rx] Midodrine [ProAmatine] 10 mg PO AC-TID #90 tab 12/17/20 [Rx] Pantoprazole [Protonix] 40 mg PO AC-BRKFST #30 tablet.dr 12/17/20 [Rx] Potassium Chloride ER [K-Dur 10] 10 meq PO DAILY #5 tab.er.prt 12/17/20 [Rx] Sennosides-Docusate Sodium [Senokot-S] 2 each PO HS #7 tab 12/17/20 [Rx] Sertraline [Zoloft] 25 mg PO DAILY #30 tab 12/17/20 [Rx] Follow up Appointment(s)/Referral(s): Elizabeth Page NPC [Nurse Practitioner] - 12/21/20 11:30 am [facility],Cardiac [NON-STAFF] - 4 Weeks (You will be called approximately 4 weeks after surgery for evaluation for cardiac rehab) Yaima Sarmiento NPC [Nurse Practitioner] - 12/29/20 1:45 pm (Appt will be at [address] address in the [facility]) Kim Guthrie NPC [Nurse Practitioner] - 01/06/21 2:00 pm Conrad Rivera MD [Primary Care Provider] - 12/25/20 11:15 am [facility], [NON-STAFF] - 1-2 Days Oneil Stack MD [STAFF PHYSICIAN] - 12/28/20 10:00 am Ambulatory/Diagnostic Orders: Complete Blood Count w/diff [LAB.AMB] Time Frame: 12/20/20, Facility: [facility], Location: Laboratory [facility] Comprehensive Metabolic Panel [LAB.AMB] Time Frame: 12/20/20, Facility: [facility], Location: Laboratory [facility] Activity/Diet/Wound Care/Special Instructions: DISCHARGE INSTRUCTIONS: 1. No driving for 4 weeks, or until physician gives their ok. 2. The patient should sleep in their own bed, no medical bed needed. 3. Stairs are not an issue. If the bedroom is upstairs, it is advised that the patient go up at night and down in the morning for the first week. Go slowly, using handrail and take 1 step at a time. 4. JOHN hose are to be worn for 30 days or until physician discontinues. 5. Heart hugger is to be worn 100% of the time until physician discontinues.(except when showering) 6. No lifting, pushing, or pulling more than 10 pounds for 12 weeks. The physician will advise of any restriction changes. 7. The patient is expected to continue the prescribed walking program. 8. Continue pain control per as needed orders. 9. Continue with incentive spirometry and splinting/heart hugger until otherwise directed by the physician. 10. Must shower daily using liquid antibacterial soap and a separate white washcloth for each individual incision. 11. Routine sternal incision care. No powders, lotions, ointments on incisions. No dressings are necessary on incisions unless they are draining. Dermabond tape is to remain on sternal incision until surgeon follow-up. 12. Please call surgeon/CYLINDER CHECKER for temp greater than 101 F or purulent drainage from incisions. 13. All prescriptions given by surgeon for 30 days. Refills need to be filled through real estate agent/broker/primary care physician. 14. A Red armband has been placed on the patient. It should be worn for 30 days post surgery and will be removed by the cardiac surgeons. If an ER visit is necessary, please make sure the number on the Red armband is called. 15. You have been referred to and are expected to begin Cardiac Rehab in approximately 4-6 weeks. HOME HEALTH SERVICES TO PROVIDE: RN SKILLED HOME CARE SERVICES FOR POST-OP SURGICAL PATIENTS WITH THE FOLLOWING: Coronary Artery Bypass Surgery (CABG) RN TO CONTINUE EDUCATION FROM ``ROAD TO A HEALTH HEART PATIENT EDUCATION MANUAL (GIVEN TO PATIENT IN THE HOSPITAL) MEDICATION RECONCILIATION WITH EDUCATION NEEDED ON FIRST HOME VISIT EMPHASIZE IMPORTANCE OF WEARING BREAST SUPPORT/HEART HUGGER ENCOURAGE USE OF INCENTIVE SPIROMETER 10 X EVERY HOUR WHILE AWAKE ENCOURAGE UTILIZATION OF LOWER EXTREMITY COMPRESSION STOCKINGS/JOHN HOSE and ELEVATE LEGS ABOVE LEVEL OF HEART WHILE AT REST. ENCOURAGE AMBULATION 3-5x/day INCREASING TOLERATES, WHILE AVOIDING EXTREMES IN TEMPERATURE FREQUENCY: RN TO OPEN THE PATIENT WITHIN 24 HOURS OF DISCHARGE FROM THE HOSPITAL WITH TELEHEALTH INSTALLED AT [facility], RN TO VISIT 2-3 X A WEEK FOR 4 WEEKS ESTABLISHED BY PATIENT NEEDS. LABORATORY: CBC, CMP TO BE DRAWN ON THE THIRD DAY HOME, (RAN STAT) FAX RESULTS TO [phone]. TELEHEALTH PARAMETERS: WEIGHT: NOTIFY MD OF WEIGHT GAIN OF 2 LBS IN 24 HOURS OR 5 LBS IN ONE WEEK HR: NOTIFY MD OF HR <55 BPM OR HR>100 BPM BP: NOTIFY MD IF BP <90/55 OR BP>140/100 O2 SAT: NOTIFY MD IF PO2<93% ON ROOM AIR SEND TELEHEALTH REPORT TO TOASTER ELEMENT REPAIRER AND CARDIOVASCULAR SURGEON THE FIRST WEEK OF CARE AND THEN BI-WEEKLY. PLEASE ADDITIONALLY COMMUNICATE ANY ABNORMALS AND NEW FINDINGS TO THE SURGEONS OFFICE. For any questions or concerns please call ticket speculator Elizabeth @ or Don @ Discharge Disposition: HOME WITH HOME HEALTH SERVICES
[2020-12-17 15:46] VITALS: BP 117/56; TEMP 98.1
[2020-12-17 16:13] VITALS: PULSE 86
[2020-12-18] MEDS ORDERED: POTASSIUM CHLORIDE ER 10 MEQ TAB.ER.PRT PO SCH (09:00)
== END 2020-12-17 17:41 | disposition home health service (06) | DRG 236 ==
LOC: 2ORMAIN 05:52 → 2SICU 15:15 → 3SCARD 12-14 14:17
PROVIDERS: ADMIT Surgery; ATTEND Surgery
PROC: 02100AW Bypass Coronary Artery, One Artery from Aorta with Autologous Arterial Tissue, Open Approach (ICD-10-PCS; 2020-12-10)
PROC: 03BC4ZZ Excision of Left Radial Artery, Percutaneous Endoscopic Approach (ICD-10-PCS; 2020-12-10)
PROC: 02L70CK Occlusion of Left Atrial Appendage with Extraluminal Device, Open Approach (ICD-10-PCS; 2020-12-10)
PROC: 5A1221Z Performance of Cardiac Output, Continuous (ICD-10-PCS; 2020-12-10)
PROC: 02100Z9 Bypass Coronary Artery, One Artery from Left Internal Mammary, Open Approach (ICD-10-PCS; principal; 2020-12-10 08:00)
PROC: 021109W Bypass Coronary Artery, Two Arteries from Aorta with Autologous Venous Tissue, Open Approach (ICD-10-PCS; 2020-12-10 08:00)
PROC: 06BQ4ZZ Excision of Left Saphenous Vein, Percutaneous Endoscopic Approach (ICD-10-PCS; 2020-12-10 08:00)
PROC: 05HD33Z Insertion of Infusion Device into Right Cephalic Vein, Percutaneous Approach (ICD-10-PCS; 2020-12-14)
DX: I25.110 Atherosclerotic heart disease of native coronary artery with unstable angina pectoris (principal); J98.11 Atelectasis; I48.0 Paroxysmal atrial fibrillation; E78.5 Hyperlipidemia, unspecified; I10 Essential (primary) hypertension; I65.23 Occlusion and stenosis of bilateral carotid arteries; N40.0 Benign prostatic hyperplasia without lower urinary tract symptoms; I44.7 Left bundle-branch block, unspecified; E87.70 Fluid overload, unspecified; E66.9 Obesity, unspecified; F41.9 Anxiety disorder, unspecified; F32.9 Major depressive disorder, single episode, unspecified; Z68.33 Body mass index [BMI] 33.0-33.9, adult; Z71.3 Dietary counseling and surveillance; Z79.82 Long term (current) use of aspirin; Z79.899 Other long term (current) drug therapy; Z87.442 Personal history of urinary calculi; Z82.49 Family history of ischemic heart disease and other diseases of the circulatory system; Z80.3 Family history of malignant neoplasm of breast; Z80.51 Family history of malignant neoplasm of kidney
CPT/HCPCS: 36410; 36415; 70496; 70498; 71045; 71046; 76937; 80053; 80061; 82330; 82533; 82565; 82805; 83036; 83735; 83880; 84443; 84520; 85025; 85520; 85610; 85730; 86850; 86891; 86900; 86901; 86920; 94002; 94640

== ENCOUNTER → 2020-12-21 | Outpatient (CLI) | payer MEDICARE, BC ==
--- NOTE | 2020-12-21 21:50 | CT ---
EXAMINATION TYPE: CT chest wo con DATE OF EXAM: 12/21/2020 COMPARISON: NONE HISTORY: Post op CABG. Drainage from sternal incision. CT DLP: 570.5 mGycm. Automated Exposure Control for Dose Reduction was Utilized. TECHNIQUE: CT scan of the thorax is performed without IV contrast. FINDINGS: LUNGS: There are small to moderate-sized bilateral pleural effusions with associated compressive atel ectasis. No pneumothorax seen bilaterally. Patent tracheobronchial tree. MEDIASTINUM: Lack of IV contrast is noted to limit evaluation for mediastinal and especially hilar ad enopathy. There are no definitive greater than 1 cm hilar or mediastinal lymph nodes. Mild cardiomega ly. There is a moderate size inferior pericardial effusion measuring 3.0 cm thickness coronal image 4 0. Hounsfield units average 21. Cannot exclude some blood product. There is some hyperdense material along the pericardial effusion in the right superior aspect just above the right atrium axial images 34 and 35, possible mediastinal clips. Additional sternal wires and mediastinal clips are seen. Sligh tly more separation superiorly with linear 3 mm gap coronal image 32 in the sternum. There is left at rial appendage clip. Evidence of CASH harvesting. Mild to moderate ill-defined fluid and fat strandin g in the mediastinum, slightly more hyperdense component axial image 27 could reflect product of more acute hemorrhage. OTHER: No additional significant abnormality is seen. IMPRESSION: Mild to moderate nonspecific mediastinal fluid collection with more acute blood product c omponent suspected just left of midline in the upper to mid thorax axial image 27. Overall small debra cardial fluid collection with more moderate to large inferior component, some hyperdense component al inez right superior aspect of pericardial fluid noted, possible clip. Other findings as noted above.
== END | disposition home or self-care (01) ==
LOC: RADCTMAIN 15:44
PROVIDERS: ATTEND Surgery
DX: J90 Pleural effusion, not elsewhere classified (principal); I31.3 Pericardial effusion (noninflammatory); I51.7 Cardiomegaly; J98.59 Other diseases of mediastinum, not elsewhere classified; Z95.818 Presence of other cardiac implants and grafts
CPT/HCPCS: 71250

== ENCOUNTER → 2020-12-23 | Outpatient (CLI) | payer MEDICARE, BC ==
[2020-12-23 19:19] LABS: Basophils # (A) 0.02 X 10*3/uL (0.00-0.10); Basophils % (A) 0.2 %; Eosinophils # (A) 0.12 X 10*3/uL (0.04-0.35); Eosinophils % (A) 1.2 %; HCT 25.3 % (39.6-50.0); HGB 7.9 g/dL (13.0-17.0); Lymphocytes # (A) 0.99 X 10*3/uL (0.90-5.00); Lymphocytes % (A) 9.9 %; MCH 33.2 pg (27.0-32.0); MCHC 31.2 g/dL (32.0-37.0); MCV 106.3 fL (80.0-97.0); Mean Platelet Volume 9.6 fL (9.5-12.2); Monocytes # (A) 0.84 X 10*3/uL (0.20-1.00); Monocytes % (A) 8.4 %; Neutrophils # (A) 7.93 X 10*3/uL (1.80-7.70); Neutrophils % (A) 79.7 %; Platelet Count 528 X 10*3/uL (140-440); RBC 2.38 X 10*6/uL (4.40-5.60); RDW 16.2 % (11.5-14.5); WBC 9.96 X 10*3/uL (4.50-10.00)
[2020-12-23 20:02] LABS: African American GFR (CKD) 70.1 (60.0-200.0); Albumin 3.7 g/dL (3.80-4.90); Albumin/Globulin Ratio 1.85 (1.60-3.17); Anion Gap 10.2 mmol/L (4.00-12.00); BUN/Creat Ratio 24.17 Ratio (12.00-20.00); Calcium 7.7 mg/dL (8.7-10.3); Carbon Dioxide 20.8 mmol/L (21.6-31.8); Non-African American GFR(CKD) 60.5 (60.0-200.0); Potassium 4.8 mmol/L (3.5-5.5); Total Bilirubin 0.4 mg/dL (0.3-1.2); Total Protein 5.7 g/dL (6.2-8.2)
== END | disposition home or self-care (01) ==
LOC: LABWHC1 10:41
PROVIDERS: ATTEND Surgery
DX: I25.10 Atherosclerotic heart disease of native coronary artery without angina pectoris (principal); D72.829 Elevated white blood cell count, unspecified; R94.4 Abnormal results of kidney function studies
CPT/HCPCS: 36415; 80053; 85025

== ENCOUNTER → 2020-12-24 | Outpatient (CLI) | payer MEDICARE, BC ==
--- NOTE | 2020-12-24 11:45 | US ---
EXAMINATION TYPE: US chest DATE OF EXAM: 12/24/2020 COMPARISON: CT chest 12/21/2020 CLINICAL HISTORY: J91.8 Pleural Effusion. Left side markings TECHNIQUE: Targeted ultrasound of the posterior lower left hemithorax EXAM MEASUREMENTS: Left Pleural Effusion pocket size: 3.0 cm Left skin surface to fluid distance: 10.4 cm Left side marked for possible thoracentesis outside the dept. Pulmonologists are able to review the images in the patient?s EMR. IMPRESSIONS: 1. Left pleural effusion
== END | disposition home or self-care (01) ==
LOC: RADUSWWP 10:33
PROVIDERS: ATTEND Internal Medicine Critical Care Medicine
DX: J90 Pleural effusion, not elsewhere classified (principal)
CPT/HCPCS: 76604

== ENCOUNTER → 2020-12-24 | Day surgery (SDC) | payer MEDICARE, BC ==
[~2020-12-24] MED LIST changes: -ALBUMIN HUMAN 25% 50 ML IV ONE; -ALBUMIN HUMAN 5% 500 ML IVPB ONE; -ASPIRIN 325 MG TAB PO ONE; -ATORVASTATIN 10 MG TAB PO ONE; -CALCIUM CHLORIDE 100 MG/ML 10 ML SYRINGE IV ONE; -CARDIOPLEGIC SOLN (K+ 16 MEQ/L 1,000 ML with SODIUM BICARB (1 MEQ/ML) 20 ML, LIDOCAINE ... PERFUSION ONE; -CHLORHEXIDINE GLUCONATE 15 ML CUP MUCOUS MEM ONE; -CLEVIDIPINE BUTYRATE 25 MG in EMPTY BAG 1 BAG IV ONE; -DILTIAZEM 125 MG in SODIUM CHLORIDE 0.9% 100 ML IV ONE; -HEPARIN SODIUM 1,000 UN/ML (10ML VL) IV ONE; -HEPARIN SODIUM,PORCINE 5,000 UNIT in SODIUM CHLORIDE 0.9% 500 ML 500 ML IV ONE; -INSULIN REGULAR 100 UNIT in SODIUM CHLORIDE 0.9% 100 ML IV ONE; -LACTATED RINGERS 1,000 ML IV ONE; -MAGNESIUM SULFATE MG 500 MG/ML IV ONE; -MANNITOL 25% 12.5 GM/50 ML VIAL IV ONE; -METOPROLOL TARTRATE 12.5 MG TAB PO ONE; -NITROGLYCERIN SL TABS 0.4 MG TAB SUBLINGUAL ONE; -NITROGLYCERIN-D5W PMX 25 MG/250 ML BTL IV ONE; -NITROGLYCERIN-D5W PMX 50 MG in DEXTROSE/WATER 1 250ML.BAG IV ONE; -NOREPINEPHRINE 4 MG in SODIUM CHLORIDE 0.9% 250 ML IV ONE; -PAPAVERINE 360 MG in SODIUM CHLORIDE 0.9% 90 ML IV ONE; -PHENYLEPHRINE 10 MG/ML VIAL IV ONE; -PHENYLEPHRINE 40 MG in SODIUM CHLORIDE 0.9% 250 ML IV ONE; -PROTAMINE SULFATE 10 MG/ML 25 ML VIAL IV ONE; -PROTAMINE SULFATE 250 MG in EMPTY BAG 1 BAG IV ONE; -SODIUM BICARB 8.4% 50 ML SYR (1 MEQ/ML) IV ONE; -SODIUM CHLORIDE 0.9% 1,000 ML IV ONE; +SODIUM CHLORIDE 0.9% 500 ML 500 ML in EMPTY BAG 1 BAG IV PRN; -TRANEXAMIC ACID 2,000 MG in SODIUM CHLORIDE 0.9% 80 ML IV ONE; -ceFAZolin 1,000 MG in SODIUM CHLORIDE 0.9% IRRIGATIO 1,000 ML IRRIGATION ONE; -propofoL 1,000 MG/100 ML VIAL IV ONE
[2020-12-24 12:04] VITALS: TEMP 97.7
[2020-12-24 12:07] VITALS: RESP 18
[2020-12-24 13:07] VITALS: BP 133/72; PULSE 82
--- NOTE | 2020-12-24 13:45 | XR ---
EXAMINATION TYPE: XR chest 1V portable DATE OF EXAM: 12/24/2020 COMPARISON: Chest x-ray 12/17/2020 HISTORY: Status post left thoracentesis TECHNIQUE: Single frontal view of the chest is obtained. FINDINGS: There is no pneumothorax. Cardiac mediastinal silhouette shows a stable appearance. Retroc ardiac density is present suggesting atelectasis or scarring. No other significant interval change. IMPRESSION: No evident complication status post thoracentesis.
[2020-12-24 16:47] LABS: Appearance,BF Cloudy; Color,BF Orange; Nucleated Cells, Body Fluid 250 /uL; RBC, Body Fluid 9150 /uL
[2020-12-24 17:48] LABS: Mononuclear WBC,Body Fluid 56 %; Polynuclear WBC,Body Fluid 44 %; Total Cells Counted,Body Fluid 100
--- NOTE | 2020-12-24 23:56 | PCN ---
PROCEDURE NOTE THORACENTESIS: PREOP DIAGNOSIS: Left-sided pleural effusion. POSTOP DIAGNOSIS: Left side pleural effusion. Indication Pleural effusion. A time-out was completed verifying correct patient, procedure, site, positioning , and implant (s) or special equipment if applicable. Ultrasound guidance was used and appropriate fluid pocket was identified and marked. Patient was positioned, prepped and draped in usual sterile fashion. Lidocaine was used to anesthetize the area. A Thoracentesis catheter was introduced into the pleural space and fluid was removed. Blood loss was none. A chest x-ray was ordered to evaluate for pneumothorax. Total Fluid Removed: 1.2 L Color of Fluid: Dark turbid Fluid @@was/was not sent for appropriate laboratory tests. Patient tolerated the procedure well and there were no complications. No bedside complications. Chest x-rays to follow. MMODL / IJN: [id number] /
[2020-12-25 04:21] LABS: Glucose, BF Source Thoracentesis Fluid; Glucose, Body Fluid 96 mg/dL; LDH, Body Fluid Source Thoracentesis Fluid
== END ==
LOC: PROCWHC3 11:09
PROVIDERS: ATTEND Internal Medicine Critical Care Medicine
DX: J90 Pleural effusion, not elsewhere classified (principal); I10 Essential (primary) hypertension; E78.5 Hyperlipidemia, unspecified; Z82.49 Family history of ischemic heart disease and other diseases of the circulatory system; I44.7 Left bundle-branch block, unspecified; I25.10 Atherosclerotic heart disease of native coronary artery without angina pectoris; N40.0 Benign prostatic hyperplasia without lower urinary tract symptoms; Z87.442 Personal history of urinary calculi; Z98.890 Other specified postprocedural states; Z80.51 Family history of malignant neoplasm of kidney; Z80.3 Family history of malignant neoplasm of breast; Z79.82 Long term (current) use of aspirin; Z79.899 Other long term (current) drug therapy
CPT/HCPCS: 32554; 71045; 76604; 82945; 83615; 84157; 87070; 87075; 87116; 87205; 87206; 89050

== ENCOUNTER → 2022-01-21 | Day surgery (SDC) | payer MEDICARE, BC ==
[~2022-01-21] MED LIST changes: +LACTATED RINGERS 1,000 ML IV ONE; +LACTATED RINGERS 1,000 ML IV SCH; +PROPOFOL 10 MG/ML 20 ML VIAL IV ONE; -SODIUM CHLORIDE 0.9% 500 ML 500 ML in EMPTY BAG 1 BAG IV PRN
[2022-01-21 08:22] VITALS: TEMP 97.6
--- NOTE | 2022-01-21 09:24 | P.PCN ---
Date of Procedure: 01/21/22 Preoperative Diagnosis: Screening Postoperative Diagnosis: Sigmoid colon polyp Procedure(s) Performed: Colonoscopy with hot snare polypectomy Anesthesia: MAC Surgeon: Juliet Kaplan Pathology: other (Sigmoid colon polyp) Condition: stable Disposition: same day Indications for Procedure: 72-year-old male presents today for screening colonoscopy. Risks, benefits and alternatives were provided to the patient. He did provide consent. Operative Findings: Sigmoid colon polyp Description of Procedure: The patient was brought to the endoscopy suite and placed in left lateral decubitus position and adequate sedation was achieved using conscious sedation. A digital rectal exam was performed and mild internal hemorrhoids palpated. An endoscope was then placed in the rectum and advanced to the cecum as identified by limits including the appendiceal orifice and the ileocecal valve. The prep was good. The colonoscope was then slowly withdrawn, examining for any mucosal abnormalities. The cecum, ascending, transverse, descending and sigmoid colon were visualized adequately. There were no obvious neoplastic lesions throughout the colon. A polyp was noted in the sigmoid colon. This was removed with hot snare polypectomy. Hemostasis was maintained. There is no significant evidence of diverticulosis. Retroflexion was performed in the rectum and internal hemorrhoids were visible. Excess air was removed, the colonoscope withdrawn and the procedure terminated. The patient was then transferred to the recovery unit in stable condition. Repeat colonoscopy should be performed in 5 years.
[2022-01-21 09:38] VITALS: BP 123/65; PULSE 67; RESP 16
== END | disposition home or self-care (01) ==
LOC: ORWHC2ENDO 08:01
PROVIDERS: ATTEND Surgery
DX: Z12.11 Encounter for screening for malignant neoplasm of colon (principal); D12.5 Benign neoplasm of sigmoid colon; K64.8 Other hemorrhoids; I25.10 Atherosclerotic heart disease of native coronary artery without angina pectoris; Z95.1 Presence of aortocoronary bypass graft; N40.0 Benign prostatic hyperplasia without lower urinary tract symptoms; Z79.82 Long term (current) use of aspirin; Z79.01 Long term (current) use of anticoagulants; Z79.899 Other long term (current) drug therapy
CPT/HCPCS: 88305; 45385; J2704

== ENCOUNTER → 2022-08-08 | Outpatient (CLI) | payer MEDICARE, BC ==
[2022-08-08 15:47] LABS: INR 0.9 (<1.2); Partial Thromboplastin Time 22.6 sec (22.0-30.0); Prothrombin Time 10.4 sec (9.0-12.0)
[2022-08-08 23:11] LABS: Appearance,Urine Clear (Clear); Bilirubin,Urine Negative (Negative); Blood,Urine Negative (Negative); Color,Urine Dark Yellow (Yellow); Ketones,Urine 15 mg/dL (Negative); Nitrite,Urine Negative (Negative); PH, Urine 6.5 (5.0-8.0); Specific Gravity,Urine 1.029 (1.001-1.030)
[2022-08-08 23:41] LABS: African American GFR (CKD) 62.7 (60.0-200.0); Albumin 4.2 g/dL (3.8-4.9); Albumin/Globulin Ratio 2.1 (1.60-3.17); Anion Gap 11.2 mmol/L (10.00-18.00); BUN/Creat Ratio 17.38 Ratio (12.00-20.00); Blood Urea Nitrogen 22.6 mg/dL (9.0-27.0); Calcium 9.2 mg/dL (8.7-10.3); Carbon Dioxide 24.8 mmol/L (20.0-27.5); Non-African American GFR(CKD) 54.1 (60.0-200.0); Potassium 4.7 mmol/L (3.5-5.5); Total Bilirubin 0.3 mg/dL (0.30-1.20); Total Protein 6.2 g/dL (6.2-8.2)
[2022-08-09 00:03] LABS: Bacteria,Urine None Seen /HPF (None Seen); Calcium Oxalate Crystals,Urine Present /LPF (None Seen); Mucus,Urine Present /LPF (None Seen)
[2022-08-09 00:44] LABS: Basophils # (A) 0.02 X 10*3/uL (0.00-0.10); Basophils % (A) 0.2 %; Eosinophils # (A) 0.02 X 10*3/uL (0.04-0.35); Eosinophils % (A) 0.2 %; HCT 44.3 % (39.6-50.0); HGB 14.6 g/dL (13.0-17.0); Immature Grans, Automated 0.5 %; Lymphocytes # (A) 0.77 X 10*3/uL (0.90-5.00); Lymphocytes % (A) 7.6 %; MCH 32.7 pg (27.0-32.0); MCV 99.1 fL (80.0-97.0); Mean Platelet Volume 10.1 fL (9.5-12.2); Monocytes # (A) 0.59 X 10*3/uL (0.20-1.00); Monocytes % (A) 5.8 %; NRBC Per 100 WBC 0 /100 WBCS (0.0-0.0); Neutrophils # (A) 8.72 X 10*3/uL (1.80-7.70); Neutrophils % (A) 85.7 %; Platelet Count 253 X 10*3/uL (140-440); RBC 4.47 X 10*6/uL (4.40-5.60); RDW 12.6 % (11.5-14.5); WBC 10.17 X 10*3/uL (4.50-10.00)
== END | disposition home or self-care (01) ==
LOC: LABPAT 14:18
PROVIDERS: ATTEND Orthopaedic Surgery
DX: Z01.812 Encounter for preprocedural laboratory examination (principal)
CPT/HCPCS: 80053; 81001; 85025; 85610; 85730; 87070; 93005

== ENCOUNTER 2022-08-16 08:02 | Day surgery (SDC) | payer MEDICARE, BC ==
[2022-08-09 16:17] VITALS: BMI 31.1
[~2022-08-16 08:02] MED LIST changes: +ACETAMINOPHEN TAB 500 MG TAB PO PRN; +DEXAMETHASONE SOD PHOSPHATE 4 MG/ML 1 ML VIAL IV ONE; +GABAPENTIN 300 MG CAP PO PRN; +HYDROmorphone 0.5 MG/0.5 ML SYRINGE IVP PRN; -LACTATED RINGERS 1,000 ML IV ONE; -LACTATED RINGERS 1,000 ML IV SCH; +LIDOCAINE 1% (10MG/ML) FOR IV START INTRADERMA PRN; +MELOXICAM 7.5 MG TAB PO PRN; +ONDANSETRON 4 MG/2 ML VIAL IVP ONE; -PROPOFOL 10 MG/ML 20 ML VIAL IV ONE; +TRANEXAMIC ACID IN NACL,ISO-OS 1,000 MG in SALINE 1 100ML.BAG IVPB PRN
[2022-08-16] MEDS: LACTATED RINGERS 1,000 ML IV SCH (08:45)
[2022-08-16] MEDS ORDERED: NALOXONE 0.4 MG/ML 1 ML VIAL IV PRN (08:52)
[2022-08-16] MEDS ORDERED: MAGNESIUM HYDROXIDE 2,400 MG/10 ML CUP PO PRN (08:52)
[2022-08-16] MEDS ORDERED: HYDROmorphone 0.5 MG/0.5 ML SYRINGE IVP PRN ×3 (08:52)
[2022-08-16] MEDS ORDERED: ONDANSETRON 4 MG/2 ML VIAL IVP PRN (08:52)
[2022-08-16] MEDS ORDERED: HYDROcodone/APAP 7.5-325MG 1 EACH TAB PO PRN (08:54)
[2022-08-16] MEDS ORDERED: fentaNYL (PF) 50 MCG/ML 2 ML AMP ONE (09:06)
[2022-08-16] MEDS ORDERED: MIDAZOLAM 2 MG/2 ML VIAL ONE (09:06)
[2022-08-16] MEDS ORDERED: TRANEXAMIC ACID IN NACL,ISO-OS 1,000 MG/100 ML BAG ONE (09:06)
[2022-08-16] MEDS ORDERED: PROPOFOL 10 MG/ML 20 ML VIAL IV ONE (09:06)
[2022-08-16 09:10] LABS: Glucose,Whole Blood 101 mg/dL (70-110)
[2022-08-16] MEDS ORDERED: ROPIVACAINE 5 MG/ML 30 ML VIAL MISCELLANE ONE ×2 (09:34→10:20)
[2022-08-16] MEDS ORDERED: ceFAZolin 1,000 MG in SODIUM CHLORIDE 0.9% 1,000 ML IRRIGATION ONE (09:35)
--- NOTE | 2022-08-16 10:22 | P.OP ---
Date of Procedure: 08/16/22 Preoperative Diagnosis: Severe osteoarthritis right hip Postoperative Diagnosis: Severe osteoarthritis right hip Procedure(s) Performed: Right total hip arthroplasty with a direct anterior approach Implants: [employer] Polarstem standard size 5, collar [employer] R3, 3 hole hemispherical acetabular shell, 56 mm [employer] Reflection 6.5 mm cancellus screw, 25 mm 2 [employer] R3, XLPE 20 acetabular liner [employer] Oxinium femoral head 36 m, +4 All components were press-fit. The articulation is Oxinium on polyethylene. Anesthesia: spinal Surgeon: Canelo Mariee Warper Creeler #1: Iram Mcclure Estimated Blood Loss (ml): 350 Pathology: other (Bone and cartilage) Condition: stable Disposition: PACU Indications for Procedure: After failure of conservative treatment we discussed the surgical and nonsurgical treatment options at length. Patient wishes to proceed with a total hip arthroplasty with a direct anterior approach. Complications specific to this procedure were discussed at length, including but not limited to infection, leg length discrepancy, dislocation, nerve injury, and fracture. Covid-19 was also discussed at length with the patient, and they are aware of the current policies and procedures. The patient was given the option of delaying surgery, but they elect to proceed knowing these risks. Patient is aware of all these complications and informed consent was obtained Operative Findings: The operative findings are consistent with severe osteoarthritis of the right hip Description of Procedure: Patient was seen and evaluated in the preoperative area and the consent was reviewed. The operative site was marked with a skin marker. The patient was then brought to the operating room and given preoperative antibiotics intravenously. 1 g of Tranexamic acid was also given intravenously. A spinal anesthetic was administered by the anesthesia department. The patient was then placed on the Savanna table with the bony prominences well-padded. The hip area was then prepped with a ChloraPrep solution and draped in the usual sterile fashion. A universal timeout was then performed, which confirmed the patient's name, surgical site, ALLERGIES, and procedure being performed on the consent. Next the incision site was located at 1 cm distal and 2 cm lateral to the anterior superior iliac spine. The skin and subcutaneous tissues were sharply incised. Incision was carefully dissected down to the fascia overlying the tensor fascia denis muscle. This fascia was then incised in line with the incision. Care was taken to stay laterally in order to avoid injuring the lateral femoral cutaneous nerve. Next, using blunt finger dissection, the tensor fascia denis muscle was dissected off its investing fascia. The muscle was then carefully retracted laterally with a cobra retractor over the lateral neck of the femur. Next, the circumflex vessels were identified and cauterized using the AquaMantis device. The anterior hip capsule was then exposed. The capsule was then opened and an inverted T fashion. Cobra retractors were then placed intracapsularly. The retractors were maintained intracapsular throughout the procedure. The proximal femur was then visualized. Fluoroscopic x-rays were then taken in order to evaluate the preoperative leg lengths. A small amount of traction was placed on the leg. The femoral neck was then osteotomized at the appropriate level above the lesser trochanter. A small wedge of bone was then removed from the remaining femoral head. Next, using a corkscrew the femoral head was removed from the acetabulum. On gross visual inspection, the femoral head had complete loss of articular cartilage and multiple periarticular osteophytes. The femoral head was then measured. Attention was then turned to the acetabulum. The acetabulum was exposed and any remaining labrum was excised. Sequential reaming of the acetabulum was performed using fluoroscopic guidance until there was a good bed of bleeding cancellus bone. When the appropriate size was reached, a trial was then placed. The position and fit of the trial was checked with fluoroscopy. The trial was then removed. Then, using fluoroscopic guidance, the final implant was impacted at 20 of anteversion and 40 of abduction, and fully seated in the acetabulum. 2 screws were then placed in the acetabulum. Again fluoroscopy was used to check position of the screws. Next, the liner was then impacted, with a 20 elevated liner located in the anterior superior quadrant. Component locking was confirmed. There was noted to be a large osteophyte around the anterior superior aspect of the acetabulum. A Curved osteotome was used to remove this large osteophyte. Attention was then directed to the femur. With the aid of the Savanna table, the femur was externally rotated to approximately 130, extended, and adducted under the opposite leg. A side hook was then placed under the proximal femur, and the side hook elevator was used to elevate the proximal femur while releasing the capsule. Retractors were then placed. A capsular release was performed, as well as a release of the conjoined tendon, which afforded excellent visualization of the proximal femur. Next, a box osteotome was used to lateralize the proximal femur. A deckhand fishing vessel was then used to locate the femoral canal. Sequential broaching was then performed with appropriate size which afforded excellent fixation in the proximal femur. A trial was then placed with appropriate head and neck, and the hip was gently reduced with the aid of the Savanna table. Fluoroscopy was then used to check position of the components, as well as to ensure equal leg lengths. The hip was then gently dislocated and the trials were then removed. Final implants were then impacted and the hip was again reduced. Final fluoroscopic x-rays confirmed that the components were in anatomic position, as well as equal leg lengths. The hip was also taken through range of motion, and found to be stable. The hip was then copiously irrigated with antibiotic solution with pulsatile lavage. The hip was then irrigated with Irrisept solution. The soft tissues were then injected with a ropivacaine solution. A second dose of 1 g of Tranexamic acid was also given intravenously. The fascia was then closed with 2-0 strata fix suture. The subcutaneous tissue was closed with 3-0 Vicryl. The subcuticular tissue was closed with 3-0 strata fix suture. The skin was then closed with Exofin skin glue. After the glue and dried, and Optifoam silver impregnated dressing was applied. The patient was then transferred to the recovery room in stable condition. The automobile mechanic assistant JOLIE Keene was required due to the complexity of surgery, and the need for skilled surgical rn for positioning, draping, exposure, retraction, and closure of the wound.
[2022-08-16] MEDS ORDERED: LACTATED RINGERS 1,000 ML IV ONE (10:31)
--- NOTE | 2022-08-16 10:58 | XR ---
EXAMINATION TYPE: XR Hip Limited RT DATE OF EXAM: 08/16/2022 COMPARISON: NONE HISTORY: Postop TECHNIQUE: One view submitted. FINDINGS: There is postsurgical change in near anatomic alignment. There is soft tissue edema and emphysema. IMPRESSION: 1. Postoperative change. Appears in near-anatomic alignment.
--- NOTE | 2022-08-16 10:58 | FL ---
EXAMINATION TYPE: FL guidance operating room DATE OF EXAM: 08/16/2022 HISTORY: Fluoroscopy time 1 minute and 4 seconds seconds of fluoroscopy provided. IMPRESSION: 1. Fluoroscopy time.
--- NOTE | 2022-08-16 11:20 | XR ---
EXAMINATION TYPE: XR Hip Limited RT DATE OF EXAM: 08/16/2022 11:07 AM INDICATION: Patient age:Male; 72 years old; Reason for study: Status post hip surgery, assess surgical alignment; PHH. COMPARISON: Fluoroscopic images of the right hip of the same date. TECHNIQUE: The right hip was examined in frontal projection. FINDINGS: Post surgical changes right total hip arthroplasty. Hardware appears intact with appropriat e position. There is associated soft tissue edema and subcutaneous gas. IMPRESSION: Post surgical changes from right total hip arthroplasty. Hardware appears intact with appropriate ali gnment.
[2022-08-16] MEDS: ASPIRIN 81 MG PO SCH (19:00)
[2022-08-16] MEDS: SODIUM CHLORIDE 0.9% 1,000 ML IV SCH (19:20)
[2022-08-16] MEDS: TAMSULOSIN 0.4 MG CAP.ER.24H PO SCH (20:45)
[2022-08-16] MEDS: DILTIAZEM ORAL 30 MG TAB PO SCH (20:45)
[2022-08-16] MEDS ORDERED: ATORVASTATIN 40 MG TAB PO SCH (21:00)
[2022-08-16] MEDS ORDERED: SENNOSIDES-DOCUSATE SODIUM 1 EACH TAB PO SCH (21:00)
[2022-08-17] MEDS: SODIUM CHLORIDE 0.9% 1,000 ML IV SCH (00:31)
[2022-08-17 04:15] VITALS: PULSE 78
[2022-08-17] MEDS: LACTATED RINGERS 1,000 ML IV SCH (07:06)
[2022-08-17] MEDS: HYDROcodone/APAP 7.5-325MG 1 EACH TAB PO PRN ×2 (07:08→09:39)
[2022-08-17] MEDS: DILTIAZEM ORAL 30 MG TAB PO SCH (08:07)
[2022-08-17] MEDS: ASPIRIN 81 MG PO SCH (08:07)
[2022-08-17] MEDS: TAMSULOSIN 0.4 MG CAP.ER.24H PO SCH (08:07)
[2022-08-17 08:56] VITALS: BP 151/79; RESP 18; TEMP 97.7
[2022-08-17] MEDS ORDERED: APIXABAN 5 MG TAB PO SCH (09:00)
[2022-08-17] MEDS ORDERED: MULTIVITAMINS, THERA 1 EACH TAB PO SCH (09:00)
[2022-08-17] MEDS ORDERED: predniSONE 10 MG TAB PO SCH (09:00)
[2022-08-17 10:44] LABS: Basophils # (A) 0.02 X 10*3/uL (0.00-0.10); Basophils % (A) 0.2 %; Eosinophils # (A) 0.01 X 10*3/uL (0.04-0.35); Eosinophils % (A) 0.1 %; HGB 12.3 g/dL (13.0-17.0); Immature Grans, Automated 0.5 %; Lymphocytes # (A) 0.62 X 10*3/uL (0.90-5.00); Lymphocytes % (A) 4.7 %; MCH 32.5 pg (27.0-32.0); MCHC 33.2 g/dL (32.0-37.0); MCV 97.6 fL (80.0-97.0); Monocytes # (A) 1.34 X 10*3/uL (0.20-1.00); Monocytes % (A) 10.2 %; NRBC Per 100 WBC 0 /100 WBCS (0.0-0.0); Neutrophils # (A) 11.13 X 10*3/uL (1.80-7.70); Neutrophils % (A) 84.3 %; Platelet Count 209 X 10*3/uL (140-440); RBC 3.79 X 10*6/uL (4.40-5.60); RDW 12.5 % (11.5-14.5); WBC 13.18 X 10*3/uL (4.50-10.00)
[2022-08-17 11:23] LABS: ALT 22 U/L (10-49); AST 23 U/L (14-35); African American GFR (CKD) 85.1 (60.0-200.0); Albumin 3.8 g/dL (3.8-4.9); Albumin/Globulin Ratio 1.95 (1.60-3.17); Alkaline Phosphatase 41 U/L (41-126); BUN/Creat Ratio 18.42 Ratio (12.00-20.00); Blood Urea Nitrogen 18.6 mg/dL (9.0-27.0); Calcium 8.4 mg/dL (8.7-10.3); Carbon Dioxide 23.2 mmol/L (20.0-27.5); Chloride 106 mmol/L (96-109); Globulin 1.9 g/dL (1.6-3.3); Glucose 155 mg/dL (70-110); Non-African American GFR(CKD) 73.5 (60.0-200.0); Potassium 4.3 mmol/L (3.5-5.5); Sodium 140 mmol/L (135-145); Total Bilirubin <0.15 mg/dL (0.30-1.20); Total Protein 5.7 g/dL (6.2-8.2)
[2022-08-17] MEDS ORDERED: AMIODARONE 100 MG TAB PO SCH (12:00)
[2022-08-17] MEDS ORDERED: METOPROLOL SUCCINATE (ER) 25 MG TAB.ER.24H PO SCH (12:00)
--- NOTE | 2022-08-17 13:26 | CONS ---
CONSULTATION SUBJECTIVE: He has been restarted on his home medicines of Flomax, Lipitor, Cardizem, Toprol-XL. Primatene will be held due to hypertension. Amiodarone, aspirin, Lipitor. OBJECTIVE: CARDIOVASCULAR: S1, S2. GI: Soft. HEMATOLOGY: Negative Homans. There is a little bit of urinary retention. VITAL SIGNS: Pulse is 77, temperature 97.6, blood pressure 160s to 120s over 90s to 76, O2 of 100% on room air. ASSESSMENT: Status post knee replacement. We will check labs, CBC, Chem panel in the morning. To follow renal functions, which have been decreased a little bit recently prior to surgery and much improved cycles of urinary retention. Continue current treatment. MMODL / IJN: [id number] /
--- NOTE | 2022-08-17 13:28 | P.DS ---
Providers Expected date of discharge: 08/17/22 Attending physician: Canelo Mariee Consults: 08/16/22 08:52 Consult Physician Routine Consulting Provider: Conrad Rivera Reason/Comments: medical management and anticoagulation Do you want consulting provider notified?: Yes Primary care physician: [facility] Course: This is a 72-year-old male who was last seen in our office with complaint of continued right hip pain. The patient has a known history of degenerative arthritis of the right hip and presents to discuss surgical options. After discussion and consideration the patient elects to proceed with total right hip arthroplasty. He is seen preoperatively by his family physician and cleared for surgery. The patient is admitted to [facility] for direct anterior total right hip arthroplasty. The procedure is performed without complication or sequelae. The patient is doing well postoperatively. Vital signs and postoperative labs are stable. Patient is examined bedside the day of discharge. He is ambulating with a walker with minimal assistance. His pain is well-controlled. He denies chest pain, shortness of breath, nausea, vomiting. On examination, he is sitting up in bed in no apparent distress. He is alert and orientated x3. On inspection of the right hip, there is no bleeding or drainage to the dressing. Motor and sensory function intact of the right lower extremity. RLE warm and well perfused. Calf nontender. The patient is discharged to home with home health care today in good condition. Please see discharge orders. Please refer to the med rec for accurate list of medications. Plan - Discharge Summary Discharge Rx Participant: Yes New Discharge Prescriptions: New HYDROcodone/APAP 7.5-325MG [[place] 7.5-325] 1 - 2 tab PO Q6H PRN #32 tab PRN Reason: Pain Sennosides [Senokot] 2 tab PO DAILY PRN #60 tablet PRN Reason: Constipation No Action Tamsulosin [Flomax] 0.4 mg PO BID Aspirin [Adult Low Dose Aspirin EC] 81 mg PO DAILY Multivitamins, Thera [Multivitamin (formulary)] 1 tab PO DAILY Apixaban [Eliquis] 5 mg PO BID #60 tab Midodrine [ProAmatine] 10 mg PO AC-TID #90 tab Diltiazem Oral [Cardizem*] 30 mg PO TID Atorvastatin [Lipitor] 40 mg PO HS Metoprolol Succinate (ER) [Toprol XL] 25 mg PO 1200 Amiodarone [Cordarone] 100 mg PO 1200 predniSONE 10 mg PO DAILY Discharge Medication List Aspirin [Adult Low Dose Aspirin EC] 81 mg PO DAILY 11/25/16 [History] Multivitamins, Thera [Multivitamin (formulary)] 1 tab PO DAILY 11/25/16 [History] Tamsulosin [Flomax] 0.4 mg PO BID 11/25/16 [History] Apixaban [Eliquis] 5 mg PO BID #60 tab 12/17/20 [Rx] Midodrine [ProAmatine] 10 mg PO AC-TID #90 tab 12/17/20 [Rx] Amiodarone [Cordarone] 100 mg PO 1200 01/20/22 [History] Atorvastatin [Lipitor] 40 mg PO HS 01/20/22 [History] Diltiazem Oral [Cardizem*] 30 mg PO TID 01/20/22 [History] Metoprolol Succinate (ER) [Toprol XL] 25 mg PO 1200 01/20/22 [History] predniSONE 10 mg PO DAILY 08/09/22 [History] HYDROcodone/APAP 7.5-325MG [[place] 7.5-325] 1 - 2 tab PO Q6H PRN #32 tab 08/16/22 [Rx] Sennosides [Senokot] 2 tab PO DAILY PRN #60 tablet 08/16/22 [Rx] Follow up Appointment(s)/Referral(s): [facility], [NON-STAFF] - As Needed Canelo Mariee DO [Doctor of Osteopathic Medicine] - 08/29/22 1:30 pm Patient Instructions/Handouts: Joint Replacement Surgery (DC) Activity/Diet/Wound Care/Special Instructions: Weightbearing as tolerated with walker. Leave dressing intact. Dressing may be removed by home care nurse or by patient in 7 days. Then change dressing twice daily until follow up. May shower with initial dressing intact and after removal. If dressing become saturated, please remove. Please resume Eliquis and aspirin. Recommend use of compression stockings daily until follow up to help prevent swelling and blood clots. May remove at night before sleeping. Please follow-up with [facility] in 2 weeks and call with any questions or concerns, . Discharge Disposition: HOME WITH HOME HEALTH SERVICES
== END 2022-08-17 14:00 | disposition home health service (06) ==
LOC: OR 08:02 → 4SSUR 10:39 → OR 08-17 14:00
PROVIDERS: ATTEND Orthopaedic Surgery
DX: M16.11 Unilateral primary osteoarthritis, right hip (principal)
CPT/HCPCS: 97161; 97535; 97165; 80053; 85025; 88300; 73501; 27130; C1776; J1100; J0690 ×3; J2405; J2795; J7512; 86850; 86900; 86901

== ENCOUNTER → 2022-11-17 | Outpatient (CLI) | payer BC, MEDICARE ==
--- NOTE | 2022-11-17 12:36 | US ---
EXAMINATION TYPE: US venous doppler duplex LE LT DATE OF EXAM: 11/17/2022 12:23 PM COMPARISON: NONE CLINICAL HISTORY: 72-year-old male I82.402 ACUTE EMBOLISM AND THOMBOS/DEEP VEINS OF L. left leg pain and edema SIDE PERFORMED: Left TECHNIQUE: The lower extremity deep venous system is examined utilizing real time linear array sonog henry with graded compression, doppler sonography and color-flow sonography. FINDINGS: VESSELS IMAGED: Common Femoral Vein Deep Femoral Vein Greater Saphenous Vein * Femoral Vein Popliteal Vein Small Saphenous Vein * Proximal Calf Veins (* superficial vessels) Left Leg: Negative for DVT IMPRESSION: No evidence for DVT within the left lower extremity imaged from the groin to the upper calf.
== END | disposition home or self-care (01) ==
LOC: RADUSWWP 11:47
PROVIDERS: ATTEND Family Medicine
DX: I82.402 Acute embolism and thrombosis of unspecified deep veins of left lower extremity (principal)

== ENCOUNTER → 2024-03-05 | Outpatient (CLI) | payer MEDICARE ==
--- NOTE | 2024-03-07 08:49 | US ---
EXAMINATION TYPE: US kidneys/renal and bladder DATE OF EXAM: 03/05/2024 COMPARISON: US 2021 CLINICAL INDICATION: Male, 73 years old with history of R31.9 HEMATURIA; EXAM MEASUREMENTS: Right Kidney: 10.6 x 5.5 x 6.1 cm Left Kidney: 11.7 x 5.8 x 5.2 cm Right Kidney: no hydronephrosis or masses seen Left Kidney: 0.6cm echogenic focus mid pole Bladder: not fully distended, wnl as seen There is no evidence for hydronephrosis at this point in time. No nephrolithiasis is seen. No ashley s are identified. The urinary bladder is anechoic. Bilateral ureteral jets are seen. There is moder ate cortical thinning and increased echogenicity of both kidneys consistent with medical renal diseas e. Clinical correlation recommended. IMPRESSION: 1. Findings suggestive of significant medical renal disease. Clinical correlation recommended. 2. No solid renal mass, hydronephrosis or calculus.
== END | disposition home or self-care (01) ==
LOC: RADUSWWP 15:58
PROVIDERS: ATTEND Family Medicine
DX: R31.9 Hematuria, unspecified (principal)
CPT/HCPCS: 76770

== ENCOUNTER 2024-06-03 09:05 | Day surgery (SDC) | payer MEDICARE ==
[2024-05-30 08:45] VITALS: BMI 28.5
[~2024-06-03 09:05] MED LIST changes: -ACETAMINOPHEN TAB 500 MG TAB PO PRN; -DEXAMETHASONE SOD PHOSPHATE 4 MG/ML 1 ML VIAL IV ONE; -GABAPENTIN 300 MG CAP PO PRN; -HYDROmorphone 0.5 MG/0.5 ML SYRINGE IVP PRN; +LACTATED RINGERS 1,000 ML IV SCH; -MELOXICAM 7.5 MG TAB PO PRN; -ONDANSETRON 4 MG/2 ML VIAL IVP ONE; -TRANEXAMIC ACID IN NACL,ISO-OS 1,000 MG in SALINE 1 100ML.BAG IVPB PRN
[2024-06-03 10:02] VITALS: TEMP 96.9
[2024-06-03] MEDS: IV FLUID CONTINUATION 500 ML IV ONE (10:07)
[2024-06-03] MEDS: SODIUM CHLORIDE 0.9% 500 ML 500 ML IV SCH (10:19)
[2024-06-03] MEDS ORDERED: PROPOFOL 10 MG/ML 20 ML VIAL IV ONE (10:25)
[2024-06-03] MEDS: BENZOCAINE SPRAY 1 CAN TOPICAL ONE ×2 (10:25→10:28)
[2024-06-03] MEDS ORDERED: LIDOCAINE 1% INJ 10MG/ML (20 ML MDV) ONE (10:25)
[2024-06-03 10:40] LABS: African American GFR (CKD) >90 (>60 ml/min/1.73 sqM); Anion Gap 8 mmol/L; Blood Urea Nitrogen 26 mg/dL (9-20); Calcium 9.2 mg/dL (8.4-10.2); Carbon Dioxide 22 mmol/L (22-30); Chloride 110 mmol/L (98-107); Glucose 95 mg/dL (74-99); Non-African American GFR(CKD) 88 (>60 ml/min/1.73 sqM); Potassium 4.6 mmol/L (3.5-5.1); Sodium 140 mmol/L (137-145)
--- NOTE | 2024-06-03 10:52 | P.PCN ---
Date of Procedure: 06/03/24 Operative Findings: Cardioversion Report Performing physician Marcial Tan M.D. Procedure performed Successful cardioversion of atrial fibrillation to normal sinus mechanism using 200 J at first attempt Indication Symptomatic atrial fibrillation Complication None Level of sedation The procedure was performed under deep sedation using propofol with SALES AND MANAGEMENT TRAINEE in the room Procedure description After obtaining an informed consent the patient was brought to the recovery room. Sedation was introduced using propofol with SALES AND MANAGEMENT TRAINEE in the room. Subsequently the patient cardioverted from atrial fibrillation to normal sinus mechanism using 200 J and first attempt Conclusion Successful cardioversion of atrial fibrillation to normal sinus mechanism using 200 J Postprocedure management Continue the current medical regimen Continue oral anticoagulation Follow-up with the patient
--- NOTE | 2024-06-03 10:53 | P.PCN ---
Date of Procedure: 06/03/24 Operative Findings: TRANSESOPHAGEAL ECHOCARDIOGRAM DIRECTOR GROUP SALES: ISABEL BASURTO MD, RPVI INDICATION: Rule out intracardiac thrombus before cardioversion SEDATION: Conscious sedation COMPLICATION: None LEVEL OF SEDATION The procedure was performed using propofol with LAUNCH STEWARD in the room PROCEDURE DESCRIPTION: After obtaining an informed consent, the patient was brought to transesophageal echocardiogram room. Pulse oximetry and heart monitors were attached to the patient. The patient throat was sprayed using lidocaine. The patient was turned into left lateral position. After that a bite guard was placed. After an appropriate conscious sedation was initiated, the transesophageal echocardiogram was advanced through a bite guard into the mid esophagus. A 2-D echocardiogram images, color Doppler images, continuous wave images, pulse-wave images, of various cardiac structure were performed. After that the transesophageal echocardiogram probe was advanced into the stomach and fixed to obtain transgastric view was. The probe was brought into the mid esophagus. Inter-atrial septum was interrogated using 2D images, color Doppler images, and then contrast study. After that transesophageal echocardiogram was withdrawn out and upon withdrawing the descending thoracic aorta all the way up to the arch was evaluated. CONCLUSION: 1. No evidence of any intracardiac thrombus 2. Normal biventricular dimension and systolic function 3. No significant valvular abnormalities 4. No pericardial effusion
[2024-06-03 11:18] VITALS: RESP 16
[2024-06-03 11:42] VITALS: BP 119/77; PULSE 68
[2024-06-03] MEDS ORDERED: APIXABAN 5 MG TAB PO SCH (21:00)
[2024-06-03] MEDS ORDERED: DILTIAZEM ORAL 30 MG TAB PO SCH (21:00)
[2024-06-03] MEDS ORDERED: ATORVASTATIN 40 MG TAB PO SCH (21:00)
[2024-06-03] MEDS ORDERED: TAMSULOSIN 0.4 MG CAP.ER.24H PO SCH (21:00)
[2024-06-04] MEDS ORDERED: MULTIVITAMINS, THERA 1 EACH TAB PO SCH (09:00)
[2024-06-04] MEDS ORDERED: NON FORMULARY DRUG (Saw Palmetto [Saw Palmetto] 500 MG Capsule) PO SCH (09:00)
[2024-06-04] MEDS ORDERED: SERTRALINE 25 MG TAB PO SCH (09:00)
[2024-06-04] MEDS ORDERED: LYCOPENE 10 MG PO SCH (09:00)
== END 2024-06-03 12:00 | disposition home or self-care (01) ==
LOC: OR 09:05
PROVIDERS: ATTEND Internal Medicine Interventional Cardiology
DX: I48.91 Unspecified atrial fibrillation (principal); I25.10 Atherosclerotic heart disease of native coronary artery without angina pectoris; E78.5 Hyperlipidemia, unspecified; E66.3 Overweight; Z79.01 Long term (current) use of anticoagulants; Z79.899 Other long term (current) drug therapy; Z95.5 Presence of coronary angioplasty implant and graft
CPT/HCPCS: 93312; 93320; 93325; 92960; 80048; J2001; J2704

== ENCOUNTER → 2024-10-22 | Outpatient (CLI) | payer MEDICARE | END | disposition home or self-care (01) | LOC: LABPRL 12:48 | PROVIDERS: ATTEND Internal Medicine Clinical Cardiac Electrophysiology | DX: Z53.9 Procedure and treatment not carried out, unspecified reason (principal) ==

== ENCOUNTER → 2024-10-22 | Outpatient (CLI) | payer MEDICARE ==
[2024-10-22 19:28] LABS: Basophils # (A) 0.06 X 10*3/uL (0.00-0.10); Basophils % (A) 0.7 %; Eosinophils # (A) 0.18 X 10*3/uL (0.04-0.35); Eosinophils % (A) 2.1 %; HCT 45.1 % (39.6-50.0); HGB 14.8 g/dL (13.0-17.0); Lymphocytes # (A) 1.37 X 10*3/uL (0.90-5.00); Lymphocytes % (A) 15.7 %; MCH 32.7 pg (27.0-32.0); MCHC 32.8 g/dL (32.0-37.0); MCV 99.8 FL (80.0-97.0); Mean Platelet Volume 10.6 FL (9.5-12.2); Monocytes # (A) 1.07 X 10*3/uL (0.20-1.00); Monocytes % (A) 12.3 %; NRBC Per 100 WBC 0 X 10*3/uL (0.00-0.01); Neutrophils # (A) 6.02 X 10*3/uL (1.80-7.70); Neutrophils % (A) 68.9 %; Platelet Count 183 X 10*3/uL (140-440); RBC 4.52 X 10*6/uL (4.40-5.60); RDW 13.2 % (11.5-14.5); WBC 8.73 X 10*3/uL (4.50-10.00)
[2024-10-23 04:26] LABS: Blood Urea Nitrogen 25.4 mg/dL (9.0-27.0); Carbon Dioxide 22.3 mmol/L (21.6-31.8); Chloride 107 mmol/L (96-109); Potassium 4.6 mmol/L (3.5-5.5); Sodium 143 mmol/L (135-145)
== END | disposition home or self-care (01) ==
LOC: LABPAT 12:50
PROVIDERS: ATTEND Internal Medicine Clinical Cardiac Electrophysiology
DX: Z01.812 Encounter for preprocedural laboratory examination (principal); I48.19 Other persistent atrial fibrillation
CPT/HCPCS: 80051; 82565; 84443; 84520; 85025

== ENCOUNTER 2024-10-29 09:50 | Day surgery (SDC) | payer MEDICARE ==
[2024-10-28 10:19] VITALS: BMI 28.2
[2024-10-29] MEDS: IV FLUID CONTINUATION 1,000 ML IV ONE (10:11)
[2024-10-29] MEDS: SODIUM CHLORIDE 0.9% 1,000 ML IV SCH (10:11)
[2024-10-29 10:37] LABS: ALT 70 U/L (4-49); AST 40 U/L (17-59); African American GFR (CKD) >90 (>60 ml/min/1.73 sqM); Albumin 4.4 g/dL (3.5-5.0); Alkaline Phosphatase 61 U/L (38-126); Anion Gap 8 mmol/L; Blood Urea Nitrogen 23 mg/dL (9-20); Calcium 9.3 mg/dL (8.4-10.2); Carbon Dioxide 25 mmol/L (22-30); Chloride 105 mmol/L (98-107); Glucose 88 mg/dL (74-99); Non-African American GFR(CKD) 80 (>60 ml/min/1.73 sqM); Potassium 4.4 mmol/L (3.5-5.1); Sodium 138 mmol/L (137-145); Total Bilirubin 0.8 mg/dL (0.2-1.3)
[2024-10-29] MEDS ORDERED: fentaNYL (PF) 50 MCG/ML 2 ML AMP ONE (11:18)
[2024-10-29] MEDS ORDERED: PROPOFOL 10 MG/ML 20 ML VIAL IV ONE (11:18)
[2024-10-29] MEDS: HEPARIN SODIUM,PORCINE (1 ML) 2,500 UNIT in SODIUM CHLORIDE 0.9% 250 ML IRRIGATION ONE (11:18)
[2024-10-29] MEDS ORDERED: HEPARIN SODIUM,PORCINE 5,000 UNIT/ML 1 ML VIAL ONE (11:18)
[2024-10-29] MEDS: HEPARIN SODIUM,PORCINE 10,000 UNIT in SODIUM CHLORIDE 0.9% 1,000 ML IRRIGATION ONE (11:18)
[2024-10-29] MEDS ORDERED: LIDOCAINE 1% INJ 10MG/ML (20 ML MDV) ONE (11:18)
[2024-10-29] MEDS ORDERED: NEOSTIGMINE 1 MG/ML 10 ML VIAL ONE (11:18)
[2024-10-29] MEDS ORDERED: SUCCINYLCHOLINE CHLORIDE 200 MG/10 ML VIAL IV ONE (11:18)
[2024-10-29] MEDS ORDERED: GLYCOPYRROLATE 0.2 MG/ML 2 ML VIAL ONE (11:18)
[2024-10-29] MEDS ORDERED: HEPARIN SODIUM,PORCINE 10,000 UNIT/ML 1 ML VIAL ONE (11:18)
[2024-10-29] MEDS ORDERED: ePHEDrine 50 MG/ML 1 ML VIAL ONE (11:18)
[2024-10-29] MEDS ORDERED: ONDANSETRON 4 MG/2 ML VIAL ONE (11:18)
[2024-10-29] MEDS ORDERED: ROCURONIUM 10 MG/ML (5 ML VIAL) IV ONE (11:18)
[2024-10-29] MEDS: LIDOCAINE 1% INJ 10MG/ML (20 ML MDV) SQ ONE (12:27)
[2024-10-29] MEDS: HEPARIN SOD,PORK IN 0.45% NACL 25,000 UNIT in 0.45% NACL 1 250ML.BAG IV ONE (13:00)
[2024-10-29] MEDS: HEPARIN SODIUM (1,000 UNIT/ML) 1,000 UNIT in SODIUM CHLORIDE 0.9% 1,000 ML IRRIGATION ONE (14:41)
[2024-10-29] MEDS: IOPAMIDOL-370 100ML BTL INJ ONE (14:46)
[2024-10-29] MEDS ORDERED: ACETAMINOPHEN TAB 325 MG TAB PO PRN (16:51)
--- NOTE | 2024-10-29 16:52 | P.HPCAR ---
History of Present Illness This is Dr. Zambrano dictating an H/P on this patient The patient was interviewed and examined IMPRESSION / ASSESSMENT: Atrial fibrillation, persistent, symptomatic despite rate control CAD multivessel, coronary artery bypass grafting in 2020 Along with this left atrial appendage clip was performed along with a maze pr ocedure Patient has failed electrical cardioversion Left bundle branch block pattern Mild cardiomyopathy with apical and septal hypokinesia PLAN: A-fib ablation Continue Eliquis Continue cardiac medications for atherosclerosis and cardiomyopathy Watch LV function, patient has an underlying left bundle branch block pattern HPI Patient remains in atrial fibrillation. He has failed electrical cardioversion. He complains of shortness of breath and palpitations despite being rate controlled His underlying left bundle branch block No syncope no chest pain He has no fever chills minimal cough No orthopnea ROS: No fever chills or rigors, no cough, phlegm or expectoration, no nausea, vomiting or diarrhea, no hematuria, dysuria, no musculoskeletal complaints, no strokes or seizures, no skin lesions. EXAMINATION: Blood pressure 135/65 mmHg pulse rate in the 60s and 70s Heart sounds are irregular, no murmurs No JVD No orthopnea Clear lungs no rhonchi no crackles No lower extremity edema Soft abdomen nontender REVIEW OF LABS, ECG & MEDICAL DATA Sodium 138 potassium 4.4 BUN 23 creatinine 0.93 ALT 70 Normal TSH of 3.0 Physical Exam Vitals: Vital Signs Temp Pulse Resp BP Pulse Ox 10/29/24 10:09 97.7 F 68 18 136/65 100 Intake and Output 10/29/24 10/29/24 10/29/24 06:59 14:59 22:59 Intake Total 1466.12 Output Total 200 Balance 1466.12 -200 Intake: IV 1466.12 Output: Urine 200 Other: Weight 103.3 kg Past Medical History Past Medical History: Atrial Fibrillation, Coronary Artery Disease (CAD), Chest Pain / Angina, Hyperlipidemia, Hypertension, Prostate Disorder Additional Past Medical History / Comment(s): Enlarged prostate; kidney stones, CURRENTLY ON RX FOR TOE FUNGUS History of Any Multi-Drug Resistant Organisms: C-DIFF Date of last positivie culture/infection: 11/2020 MDRO Source:: STOOL Past Surgical History: Coronary Bypass/CABG, Heart Catheterization, Joint Replacement Additional Past Surgical History / Comment(s): 12/10/20 CABG. COLONOSCOPY; right extracorporeal shockwave lithotripsy, RT PAULINA Past Anesthesia/Blood Transfusion Reactions: No Reported Reaction Additional Past Anesthesia/Blood Transfusion Reaction / Comment(s): no known hx blood transfusion Smoking Status: Never smoker - Past Family History Mother Family Medical History: Congestive Heart Failure (CHF), Coronary Artery Disease (CAD), Hypertension Father Family Medical History: Cancer, Coronary Artery Disease (CAD), Myocardial Infarction (MA) Additional Family Medical History / Comment(s): at 52 years old for myocardial infarction; Kidney cancer found on autopsy Sister(s) Family Medical History: Cancer Additional Family Medical History / Comment(s): Breast cancer Physical Examination Vital Signs Temp Pulse Resp BP Pulse Ox 10/29/24 10:09 97.7 F 68 18 136/65 100 Intake and Output 10/29/24 10/29/24 10/29/24 06:59 14:59 22:59 Intake Total 1466.12 Output Total 200 Balance 1466.12 -200 Intake: IV 1466.12 Output: Urine 200 Other: Weight 103.3 kg Results 10/29/24 10:00 Cardiac Enzymes 10/29/24 Range/Units 10:00 AST 40 (17-59) U/L Comprehensive Metabolic Panel 10/29/24 Range/Units 10:00 Sodium 138 (137-145) mmol/L Potassium 4.4 (3.5-5.1) mmol/L Chloride 105 (98-107) mmol/L Carbon Dioxide 25 (22-30) mmol/L BUN 23 H (9-20) mg/dL Creatinine 0.93 (0.66-1.25) mg/dL Glucose 88 (74-99) mg/dL Calcium 9.3 (8.4-10.2) mg/dL AST 40 (17-59) U/L ALT 70 H (4-49) U/L Alkaline Phosphatase 61 (38-126) U/L Total Protein 7.0 (6.3-8.2) g/dL Albumin 4.4 (3.5-5.0) g/dL Current Medications Generic Name Dose Route Start Last Admin Trade Name Freq PRN Reason Stop Dose Admin Apixaban 5 mg 10/29/24 21:00 Apixaban 5 Mg Tab PO BID JORDIN Protocol Atorvastatin Calcium 40 mg 10/29/24 21:00 Atorvastatin 40 Mg Tab PO HS JORDIN Sodium Chloride 1,000 mls @ 50 mls/hr 10/29/24 06:34 10/29/24 10:11 Saline 0.9% IV 11/28/24 06:33 50 mls/hr .Q20H JORDIN Administration Metoprolol Succinate 25 mg 10/30/24 09:00 Metoprolol Succinate (Er) 25 Mg Tab.Er.24h PO DAILY JORDIN Non-Formulary Medication 10 mg 10/29/24 21:00 Alfuzosin Hcl [Alfuzosin Hcl Er] PO HS JORDIN Sertraline HCl 25 mg 10/30/24 09:00 Sertraline 25 Mg Tab PO QAM JORDIN Intake and Output 10/29/24 10/29/24 10/29/24 06:59 14:59 22:59 Intake Total 1466.12 Output Total 200 Balance 1466.12 -200 Intake: IV 1466.12 Output: Urine 200 Other: Weight 103.3 kg Patient Weight 10/30/24 06:59 Weight 103.3 kg 10/29/24 10:00
--- NOTE | 2024-10-29 17:05 | P.EPPROC ---
- EP Procedure Note Electrophysiology Procedure Note: PROCEDURE A. 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 fib ablation/pulmonary vein isolation of all veins using cryo- ablation Complete entrance block in all 4 veins confirmed Left atrial roof ablation, successful Left atrial septal ablation, successful Ablation of the cavotricuspid isthmus for atrial flutter, successful with confirmed bidirectional block No evidence for phrenic nerve injury Esophageal deflection YES PROCEDURE DETAILS Written informed consent prior to procedure. Patient brought to the EP lab. General anesthesia given. Heparin administered. A city maintained above 300 seconds Both groins prepped and draped per protocol and venous sheaths placed. Esophagus intubated, circa catheter for temperature monitoring an endoscope for possible esophageal deflection. Phrenic nerve monitoring performed. Esophageal temperature monitoring performed. Esophageal deflection performed if circa catheter overlapping with the balloon or circa temperature less than 27.5C Intracardiac echocardiography performed. Pericardium evaluated. Left atrial appendage evaluated. Left atrium evaluated along with pulmonary veins Transseptal catheterization performed under fluoroscopic guidance and intracardiac echo guidance Cryoablation sheath exchanged, balloon catheter along with achieve catheter placed in the left atrium. Pulmonary veins isolated in the following sequence: Left superior pulmonary vein followed by left inferior pulmonary vein, followed by right inferior pulmonary vein and lastly right superior pulmonary vein. Phrenic nerve stimulation along with capture thresholds within the SVC and right superior pulmonary vein to identify the phrenic nerve proximity to the cryo- balloon. Pulmonary veins isolated and confirmed with entrance and exit block. Phrenic nerve integrity confirmed at the end of the procedure Ablation of the left atrial roof performed with sequential lesions from the left superior to the right superior pulmonary veins. Ablation of the electrograms confirmed Ablation of the left atrial septum performed with cannulation of the superior branch of the right inferior and the inferior branch of the right superior vein to achieve ablation of the posterior septum of the left atrium. Ablation of electrograms confirmed Additional RF lesions were applied around the lower half of the right inferior pulmonary vein. Complete antral level isolation was achieved Additional RF lesions were applied in the mid roof area Entrainment mapping from the cavotricuspid isthmus was performed after left- sided ablation. Atrial flutter was confirmed and RF ablation was performed. This resulted in termination of the tachycardia to sinus rhythm A complete line of block was made. Bidirectional block was proven with differential pacing. Isthmus conduction time 170 ms in either direction This was a long isthmus in the cavotricuspid area Diagnostic catheters for the high right atrium, His bundle, coronary sinus placed. LA and RA pressures recorded RA pressure: 18/1/9 LA pressure: 22/4/12 Diagnostic EP study with coronary sinus pacing and recording after resumption of sinus rhythm Baseline measurements: AH 116 ms, HV 52 ms DE interval 179 ms, QRS interval 121 ms left bundle branch block type, QT 425 ms and sinus cycle length 634 ms Venous sheaths were removed and hemostasis assured with a closure device. Patient extubated and transferred to recovery Increase procedural time During ablation multiple attempts had to be made to move the esophagus a safe distance of the from the pulmonary vein draining cryoablation, to avoid excessive thermal cooling of the esophagus This took extra time and effort to keep the esophagus a safe distance away from the cryoablation balloon. The left inferior vein was a large vein with multiple branches and each 1 was individually cannulated and ablated to achieve antral level isolation of the pulmonary vein Multiple attempts needed for successful cryoablation isolation of the left inferior pulmonary vein The right inferior pulmonary vein was difficult to cannulate and multiple attempts were made to achieve complete antral level isolation Ablation of the roof was difficult on account of the shape of the roof, V-shaped but was successfully ablated and this was confirmed with voltage mapping PROCEDURES PERFORMED Diagnostic EP study CS pacing and recording Left and right transseptal catheterization Catheter the mapping of the tachycardia Intracardiac echocardiography Pulmonary vein isolation with transseptal and comprehensive EPS, [id number] Extended procedure duration Left atrial roof line, [id number] Linear ablation, septum of left atrium, [id number] Ablation for typical atrial flutter
[2024-10-29] MEDS: ACETAMINOPHEN IV (For NPO) 1,000 MG in EMPTY BAG 1 BAG IVPB ONE (18:27)
[2024-10-29] MEDS: APIXABAN 5 MG TAB PO SCH (20:38)
[2024-10-29] MEDS: ATORVASTATIN 40 MG TAB PO SCH (20:38)
[2024-10-29] MEDS: TAMSULOSIN 0.4 MG CAP.ER.24H PO SCH (20:39)
[2024-10-29 21:13] LABS: Basophils % (A) 0 %; Eosinophils # (A) 0.1 k/uL (0-0.7); Eosinophils % (A) 0 %; HCT 42.6 % (39.0-53.0); HGB 13.8 gm/dL (13.0-17.5); Lymphocytes % (A) 9 %; MCH 32.6 pg (25.0-35.0); MCHC 32.3 g/dL (31.0-37.0); MCV 100.9 fL (80.0-100.0); Mean Platelet Volume 7.5; Monocytes # (A) 0.9 k/uL (0-1.0); Monocytes % (A) 7 %; Neutrophils # (A) 9.8 k/uL (1.3-7.7); Neutrophils % (A) 82 %; Platelet Count 163 k/uL (150-450); RBC 4.22 m/uL (4.30-5.90); RDW 12.5 % (11.5-15.5); WBC 11.9 k/uL (3.8-10.6)
[2024-10-30 03:13] VITALS: RESP 15
[2024-10-30 07:34] VITALS: BP 136/75; PULSE 87; TEMP 97.9
[2024-10-30] MEDS: METOPROLOL SUCCINATE (ER) 25 MG TAB.ER.24H PO SCH (08:19)
[2024-10-30] MEDS: SERTRALINE 25 MG TAB PO SCH (08:19)
--- NOTE | 2024-10-30 08:24 | P.DS ---
Providers Attending physician: New Zambrano Primary care physician: [place] [facility] Course: Patient is resting comfortably in bed. No chest discomfort dizziness or lightheadedness. He does complain of sore throat. His groins have healed well no hematoma no swelling no bruising On examination pulse rate is in the 80s blood pressure 136/75 mmHg Heart sounds are normal Breath sounds are clear Impression persistent atrial fibrillation status post ablation with antral isolation of the pulmonary veins, left atrial roof ablation and left atrial septal ablation Ablation for typical atrial flutter with termination and resumption of sinus rhythm during ablation CAD status post coronary artery bypass grafting Ischemic cardiomyopathy, mild First-degree AV block left bundle branch block Plan Continue anticoagulation uninterrupted Continue cardiac medications Watch LV function and watch for any bradycardia arrhythmias in the future Follow-up with Dr. Tan Continue cardiomyopathy medications In the future, patient will be switched to carvedilol Plan - Discharge Summary Discharge Rx Participant: No New Discharge Prescriptions: Continue Multivitamins, Thera [Multivitamin (formulary)] 1 tab PO DAILY Apixaban [Eliquis] 5 mg PO BID #60 tab Atorvastatin [Lipitor] 40 mg PO HS Terbinafine [LamISIL] 250 mg PO DAILY Metoprolol Succinate (ER) [Toprol XL] 25 mg PO DAILY Sertraline [Zoloft] 25 mg PO QAM Alfuzosin HCl [Alfuzosin HCl ER] 10 mg PO HS Discharge Medication List Multivitamins, Thera [Multivitamin (formulary)] 1 tab PO DAILY 11/25/16 [History] Apixaban [Eliquis] 5 mg PO BID #60 tab 12/17/20 [Rx] Atorvastatin [Lipitor] 40 mg PO HS 01/20/22 [History] Alfuzosin HCl [Alfuzosin HCl ER] 10 mg PO HS 05/30/24 [History] Sertraline [Zoloft] 25 mg PO QAM 05/30/24 [History] Metoprolol Succinate (ER) [Toprol XL] 25 mg PO DAILY 10/28/24 [History] Terbinafine [LamISIL] 250 mg PO DAILY 10/28/24 [History] Follow up Appointment(s)/Referral(s): Marcial Tan MD [STAFF PHYSICIAN] - 1 Week Activity/Diet/Wound Care/Special Instructions: Post EP study - Ablation instructions 1. Keep access sites dry for 2 days. 2. No heavy lifting or straining for 2 days. 3. Avoid bending the hips repeatedly for 2 days. 4. You may go up and down stairs slowly 5. If you have had an ablation for atrial fibrillation or atrial flutter and are on a blood thinner, do not stop the blood thinner even temporarily for 3 months post ablation Call if the following is noted 1. Bleeding, increasing swelling or pain at the access sites. 2. Increasing chest discomfort, especially upon taking a deep breath. 3. Increasing shortness of breath, at rest or with exertion. 4. Undue cough / phlegm 5. Difficulty or pain while swallowing. 6. Pain or change in color in the extremities. 7. Fever, chills, rigors. 8. Increasing headache or neurologic symptoms. 9. Dizziness, fainting, palpitations Strict instruction; do NOT stop anticoagulation (Eliquis/Xarelto/Pradaxa) for the next 2 months temporarily, for any elective, nonurgent surgery. This increases the risk of stroke, post A-fib ablation Minimize alcohol intake Avoid cannabis Avoid fish oil Discharge Disposition: HOME SELF-CARE
== END 2024-10-30 10:34 | disposition home or self-care (01) ==
LOC: CATHEP 09:50 → 6NMEDSUR 16:25 → CATHEP 10-30 10:34
PROVIDERS: ATTEND Internal Medicine Clinical Cardiac Electrophysiology
DX: I48.19 Other persistent atrial fibrillation (principal); I48.3 Typical atrial flutter; I25.5 Ischemic cardiomyopathy; I10 Essential (primary) hypertension; I25.10 Atherosclerotic heart disease of native coronary artery without angina pectoris; Z95.1 Presence of aortocoronary bypass graft; E78.5 Hyperlipidemia, unspecified; I44.0 Atrioventricular block, first degree; I44.7 Left bundle-branch block, unspecified; F41.9 Anxiety disorder, unspecified; Z79.01 Long term (current) use of anticoagulants; Z79.899 Other long term (current) drug therapy; Z82.49 Family history of ischemic heart disease and other diseases of the circulatory system
CPT/HCPCS: 93655; 93656; 93657; 86900; 86901; 80053; 84443; 85025; 86850; J1644 ×4; J2003; Q9967